=== PATIENT | male | born 1985 | race Caucasian/White ===

== ENCOUNTER 2018-07-03 17:55 | Emergency (ER) | payer OTHER, SELFPAY ==
[2018-07-03 17:56] VITALS: BP 157/87; PULSE 78; RESP 18; TEMP 36.6; O2SAT 99; BMI 29.8
--- NOTE | 2018-07-03 18:45 | ED.DCSUM_ITS ---
- ER Visit Summary Date of Service: 07/03/18 Chief Complaint: Back pain History of Present Illness: The patient is a 32 M who presents for acute onset of upper back pain and spasm. Patient states onset was 2 hours ago. He was working on his truck earlier today and then was in the backyard watching his kid s play when he began having sudden severe muscle spasming between his shoulder blades. He tried ibuprofen without relief. It is worse with movement and with deep breathing. He feels like the spasming is trying to twist him to the right. He denies chest pain, fever, shortness of breath, nausea vomiting, abdominal pain, numbness or weakness in the arms or legs. He did have brief left hand numbness but thinks it was the way he was sitting on the bed. It resolved after repositioning his arm. Patient has mild neck pain. No medical history. Is not on any medications. Physical Examination: Vital signs: afebrile, hemodynamically stable, no hypoxia on room air General: well nourished, well developed, in no distress, sitting in bed and appears mildly uncomfortable Skin: warm, dry, no rash, no pallor HEENT: normocephalic and atraumatic; PERRL, EOMI, moist mucous membranes Cardiovascular: regular rate and rhythm without murmurs, no peripheral edema, 2+ pulses all distal extremities Respiratory: No increased work of breathing, lungs are clear to auscultation bilaterally, no rales, rhonchi or wheezing Abdominal: Abdomen is soft, nontender with normoactive bowel sounds, no guarding or rebound, no masses Back: No cervical spine tenderness, midline deformities or step-offs. No midline tenderness deformities or step-offs in the thoracic or lumbar spine. Patient has palpable spasming of the left thoracic paraspinal musculature medial to the shoulder blade with tenderness to palpation. Sensation and motor function are intact all distal extremities. MSK: Moves all extremities, no deformities, normal strength Neuro: Awake and alert, oriented ?4. No facial droop, sensation and motor function intact and symmetric Test Results: [] Emergency Department Course and Treatment: Patient presents complaining of back spasm and pain between his shoulder blades, and his physical examination is most consistent with musculoskeletal spasming. He does have palpable muscle spasm of the left paraspinal musculature and tenderness to palpation. He has no findings on his physical exam or history that are concerning for an intrathoracic cause of his back pain, such as acute aortic dissection, pneumothorax or cardiac etiology. Patient was given IM injection of Toradol and Norflex. He will be given prescription for naproxen and Flexeril for use as needed at home. Return precautions given. Patient discharged home. Treatment Plan: [] Disposition: [] Impression: Thoracic muscle spasm This note was generated with [employer] dictation software. It may contain incorrect words, spelling, and punctuation that were not noted in review of the chart prior to signing ED Disposition - Plan for ED Patient: Disposition: Home or Assisted Living Instructions: ED Spasm Back No Trauma Prescriptions: Naproxen [Naprosyn] 500 mg PO BID PRN #20 tab Cyclobenzaprine HCl 5 mg PO TID PRN #20 tab PRN Reason: Muscle Spasm Referrals: Bandar Pemberton MD [Primary Care Provider] - 1 Week if not improving Additional Instructions: You may use the naproxen as needed for pain and the Flexeril as needed for muscle spasming. Do not take naproxen and ibuprofen at the same time. Please follow-up with your doctor if you continue to have issues with your back pain. If you have any worsening of your condition or any new concerning symptoms, please return immediately to the emergency department for another evaluation.
[2018-07-03] MEDS: Ketorolac 60 MG/2 ML Vial IM (18:47)
[2018-07-03] MEDS: Orphenadrine 60 MG/2 ML Ampul IM (18:49)
--- NOTE | 2018-07-03 19:30 | ED.RN ---
NO REACTIONS NOTED AT INJECTION SITE.
[2018-07-03 19:55] VITALS: BP 131/65; PULSE 68; RESP 18; O2SAT 97
== END 2018-07-03 20:00 | disposition home or self-care (01) ==
LOC: ED 18:58
PROVIDERS: Emergency Provider Emergency Medicine; Family Provider Family Medicine; PCP Family Medicine
DX: M62.830 Muscle spasm of back (principal); M54.2 Cervicalgia; R20.0 Anesthesia of skin
CPT/HCPCS: 96372; 99282

== ENCOUNTER → 2018-07-04 11:44 | Outpatient (CLI) | payer OTHER, SELFPAY ==
[2018-07-03 17:56] VITALS: BMI 29.8
--- NOTE | 2018-07-04 11:51 | RAD_ITS ---
STUDY: X-RAY CHEST REASON FOR EXAM: Male, 32 years old. Severe posterior chest pain with inspiration. Pain between shoulder blades. TECHNIQUE: PA and lateral views of the chest. COMPARISON: November 13, 2015. FINDINGS: The lungs are clear and expanded. There is no demonstrated pleural abnormality. Normal size heart. Normal mediastinum and gale. Normal visualized pulmonary arteries. Normal visualized aortic arch and descending thoracic aorta. Normal visualized thoracic spine. Normal visualized ribs, clavicles, and shoulders. There is no demonstrated abnormality of the visualized soft tissue structures of the upper abdomen. RAD/Chest PA and Lateral IMPRESSION: Stable examination. There is no radiographically evident acute cardiopulmonary disease. Electronically Signed: Edwar Doran MD at 16:06 EDT , Service support ,
== END ==
PROVIDERS: Family Provider Family Medicine; PCP Family Medicine; Referring Provider Family Medicine; Visit Provider Family Medicine
DX: R07.81 Pleurodynia (principal)
CPT/HCPCS: 71046

== ENCOUNTER 2018-10-15 08:31 | Emergency (ER) | payer OTHER, SELFPAY ==
[2018-10-15 08:32] VITALS: BP 157/96; PULSE 92; RESP 18; TEMP 36.6; O2SAT 99; BMI 30.1
--- NOTE | 2018-10-15 08:51 | CT_ITS ---
STUDY: CT ABDOMEN AND PELVIS WITH CONTRAST REASON FOR EXAM: Male, 32 years old. Pain central within the low abdomen. RADIATION DOSAGE (If Supplied By Facility): CTDIvol = ( 15.69 ) mGy, DLP = ( 1085.85 ) mGycm TECHNIQUE: Transaxial images were obtained from the dome of the diaphragm to the symphysis pubis without oral contrast. 100CC IV/Oral Isovue 300 was administered. Sagittal and coronal images were reconstructed. Individualized dose optimization techniques were used for this CT. COMPARISON: None. FINDINGS: The visualized lung bases are unremarkable. The visualized portions of the heart are within normal limits. Normal liver. The gallbladder is contracted. Normal spleen. Normal pancreas. Normal bilateral adrenal glands. Normal right kidney. Normal left kidney. Normal visualized stomach. Normal small intestine. There is diverticulosis, with thickening of the sigmoid colon wall, and pericolonic inflammation changes consistent with acute diverticulitis. There is non-visualization of the appendix. Normal abdominal aorta. Normal inferior vena cava. Normal retroperitoneum. Normal urinary bladder. Normal abdominal wall. Normal osseous structures. CT/Abdomen/Pelvis WITH Contrast IMPRESSION: Findings consistent with sigmoid diverticulitis with no evidence of adjacent abscess. Otherwise no evidence of additional acute process. Electronically Signed: Yair Slaughter DO at 10:51 EDT , Service support ,
--- NOTE | 2018-10-15 08:52 | ED.VIS.GEN ---
History of Present Illness Chief Complaint: Abd Pain Informant: Patient Onset: Yesterday Context: Gradual Onset Current Severity: Moderate Maximum Severity: Moderate Narrative: Patient presents with gradual onset of right lower abdominal pain since last evening. No fever has been noted. No urinary symptoms. He states he feels that he needs to go the bathroom to have a bowel movement but cannot. Past history is significant for chronic GI bleeding with bowel movements. Upper and lower endoscopy if not reveal definitive source. Patient states he was told to look as if he had had ulcers previously. - Past Medical History (1) Hx of vasectomy Status: Acute (2) Rectal bleeding Status: Acute (3) Ulcer Status: Acute Past Medical History - Allergies and Home Meds Allergies/Adverse Reactions: Allergies No Known Allergies Allergy (Verified 10/15/18 08:32) Primary Care Physician: Bandar Pemberton MD [Primary Care Provider] - Prior records reviewed: Yes Past Medical History: - - Reviewed Smoking Status: Never smoker Review of Systems General: Denies: Chills, Fever Eyes: Denies: Visual changes - bilaterally ENT: Denies: Bilateral ear pain, Sore throat Cardiovascular: Denies: Chest pain, Palpitations Respiratory: Denies: Dyspnea, Cough Gastrointestinal: Reports: Abdominal pain. Denies: Nausea, Vomiting, Diarrhea Genitourinary: Denies: Dysuria Musculoskeletal: Denies: Back pain Skin: Denies: Rash Endocrine: Denies: Polyuria, Polydipsia Hematologic: Denies: Easy bruising Allergy: Denies: Uticaria Physical Exam Vital Signs/Narrative: Vital Signs Temp Pulse Resp BP Pulse Ox 10/15/18 08:32 97.9 F 92 18 157/96 H 99 General: Well nourished, Well developed ENT: Moist mucous membranes Cardiovascular: Regular rate, Regular rhythm Respiratory: No distress, CTA bilaterally Abdomen: Soft, Tender - Tenderness palpation of the right lower quadrant with guarding. Tenderness is also elicited with palpation of the left lower quadrant., Guarding Extremities: Nontender, No edema Skin: Normal color, No rash Neurological: Alert, Oriented x3 Psychological: Normal affect Diagnostic/Tx/Re-eval Impressions Abdomen/Pelvis CT 10/15/18 08:51 IMPRESSION: Findings consistent with sigmoid diverticulitis with no evidence of adjacent abscess. Otherwise no evidence of additional acute process. Electronically Signed: Yair Slaughter DO at 10:51 EDT , Service support , 10/15/18 08:51 Abdomen/Pelvis WITH Contrast [CT] Stat Laboratory Results 10/15/18 10/15/18 10/15/18 08:45 08:45 09:08 WBC 13.5 H RBC 4.88 Hgb 15.2 Hct 43.4 MCV 88.9 MCH 31.1 MCHC 35.0 RDW Std Deviation 38.5 RDW Coeff of Emelia 11.9 Plt Count 251 MPV 9.7 Immature Gran % (Auto) 0.500 Neut % (Auto) 77.1 H Lymph % (Auto) 12.6 L [place] % (Auto) 8.6 Eos % (Auto) 0.9 Baso % (Auto) 0.3 Absolute Neuts (auto) 10.4 H Absolute Lymphs (auto) 1.70 Nucleated RBC % 0 Sodium 137 Potassium 3.7 Chloride 103 Carbon Dioxide 29.0 Anion Gap 5 BUN 19 H Creatinine 1.15 Estim Creat Clear Calc 99.13 Est GFR (MDRD) Af Amer 95 Est GFR (MDRD) Non-Af 78 BUN/Creatinine Ratio 16.5 Glucose 101 Calcium 8.8 Urine Color Yellow Urine Clarity Sl. Cloudy Urine pH 5.0 Ur Specific [place] 1.020 Urine Protein Negative Urine Glucose (UA) Normal Urine Ketones Negative Urine Occult Blood Negative Urine Nitrite Negative Urine Bilirubin Negative Urine Urobilinogen Normal Ur Leukocyte Esterase Negative Urine RBC 0 SEEN Urine WBC 0 SEEN Ur Squamous Epith Cells 0-5 SEEN Urine Bacteria 0 SEEN Urine Mucus 0 SEEN - Medical Decision Making Patient is given small dose of Toradol and Zofran for pain as he did not want anything narcotic. Test results were discussed with him at length at bedside. He will be treated with Cipro and Flagyl, first doses given here. He is given return instructions. ED Disposition - Plan for ED Patient: Disposition: Home or Assisted Living Diagnosis: Sigmoid diverticulitis Instructions: Diverticulitis Prescriptions: Ciprofloxacin [Cipro] 500 mg PO BID #14 tablet metroNIDAZOLE [Flagyl] 500 mg PO Q6H #40 tablet Referrals: Bandar Pemberton MD [Primary Care Provider] - 1 Week
[2018-10-15 09:04] LABS: Absolute Neutrophil Count 10.4 X10^3/uL (2.0-7.7); Basophil# 0.04 X10^3/uL; Basophil% 0.3 % (0-1); Eosinophil# 0.12 X10^3/uL; Eosinophils% 0.9 % (0-5); Hematocrit 43.4 % (40-54); Hemoglobin 15.2 g/dL (13.0-16.5); Lymphocyte % 12.6 % (19-41); Mean Corpuscular Hgb 31.1 pg (27.0-32.0); Mean Corpuscular Volume 88.9 fL (80-94); Mean Platelet Vol. 9.7 fl (6.2-12.0); Monocyte# 1.16 X10^3/uL; Monocyte% 8.6 % (0-10); NRBC Flagged by Analyzer 0 % (0-5); Neutrophil # 10.39 X10^3/uL (2.7-7.7); Neutrophil % 77.1 % (47-70); Platelet Count 251 K/mm3 (150-450); RBC Distribution Width CV 11.9 % (11.6-14.6); RBC Distribution Width SD 38.5 fl (35.1-43.9); Red Blood Count 4.88 M/mm3 (4.6-6.2); White Blood Count 13.5 K/mm3 (4.4-11.0)
[2018-10-15 09:12] LABS: Bacteria 0 SEEN /hpf (None Seen); Mucous, Urine 0 SEEN /hpf (<or=2+); Red Blood Cells-Urine 0 SEEN /hpf (0-5); White Blood Cells 0 SEEN /hpf (0-5)
[2018-10-15 09:14] LABS: Anion Gap 5 (5-15); BUN 19 mg/dL (7-18); BUN/Creat Ratio 16.5 RATIO (10-20); Calcium,Total 8.8 mg/dL (8.5-10.1); Chloride 103 mmol/L (98-107); Creatinine, Serum 1.15 mg/dL (0.70-1.30); EST Glomerular Filtration Rate 78 mL/min (>60); Est Glom Filt Rate - Afr Amer 95 mL/min (>60); Estimated Creatinine Clearance 99.13 ml/min; Glucose 101 mg/dL (74-106); Potassium 3.7 mmol/L (3.5-5.1); Sodium Level 137 mmol/L (136-145)
[2018-10-15 09:16] LABS: Color, Urine Yellow (Yellow); Glucose, Dipstick Normal (Normal); Ketone-Dipstick Negative (Negative); Leukocyte Esterase-Dipstick Negative /ul (Negative); Nitrite-Dipstick Negative (Negative); Occult Blood-Urine Negative /ul (Negative); Protein-Dipstick Negative (Negative); Urine Bilirubin Dipstick Negative (Negative); Urine Clarity Sl. Cloudy (Clear); Urine Urobilinogen Normal (Normal)
[2018-10-15 09:24] LABS: Squamous Epithelial Cells - UA 0-5 SEEN /hpf (0-5)
[2018-10-15] MEDS: 0.9% Normal Saline 1,000 ML 150 ML IV (10:13)
[2018-10-15] MEDS: Ondansetron 4 MG/2 ML Vial IV (10:49)
[2018-10-15] MEDS: Ketorolac 15 MG/ML Vial IV (10:49)
[2018-10-15 10:51] VITALS: BP 139/64; PULSE 62; RESP 16; O2SAT 98
[2018-10-15 11:46] VITALS: BP 103/86; PULSE 73; RESP 16; O2SAT 98
[2018-10-15] MEDS: Ciprofloxacin 500 MG Tablet PO (11:52)
[2018-10-15] MEDS: metroNIDAZOLE 500 MG Tablet PO (11:52)
== END 2018-10-15 11:52 | disposition home or self-care (01) ==
PROVIDERS: Emergency Provider Emergency Medicine; Family Provider Family Medicine; PCP Family Medicine
DX: K57.32 Diverticulitis of large intestine without perforation or abscess without bleeding (principal)
CPT/HCPCS: 74177; 80048; 81001; 85025; 96361; 96374; 96375; 99285; J7030; Q9967; A4216; J2405

== ENCOUNTER 2018-10-17 11:07 | Inpatient (IN) | payer OTHER, SELFPAY ==
[2018-10-17] VITALS (7 sets, daily range): BP systolic 112–152; BP diastolic 59–89; PULSE 49–62; RESP 16–18; TEMP 36.4–36.9; O2SAT 98–100; BMI 29.2; BMI 30.2
--- NOTE | 2018-10-17 11:37 | CT_ITS ---
STUDY: CT ABDOMEN AND PELVIS WITH CONTRAST REASON FOR EXAM: Male, 32 years old. History of sigmoid diverticulitis. RADIATION DOSAGE (If Supplied By Facility): CTDIvol = ( 15.46 ) mGy, DLP = ( 1109.18 ) mGycm TECHNIQUE: Transaxial images were obtained from the dome of the diaphragm to the symphysis pubis without oral contrast. 100 IV Isovue 300 was administered. Sagittal and coronal images were reconstructed. Individualized dose optimization techniques were used for this CT. COMPARISON: Comparison is made with prior study dated October 15, 2018. FINDINGS: Minimal degree of increased markings at the lung bases suggestive of atelectasis. The visualized portions of the heart are within normal limits. There is decreased attenuation of the liver consistent with steatosis. Normal gallbladder and extrahepatic biliary system. Normal spleen. Normal pancreas. Normal bilateral adrenal glands. Normal right kidney. Normal left kidney. There is a small hiatal hernia. Normal small intestine. There is diverticulosis, with thickening of the colon wall, and pericolonic inflammation changes consistent with acute diverticulitis. There is slight improvement in the inflammatory changes as compared to prior examination. Minimal free fluid in the pelvis. There is non-visualization of the appendix. Normal abdominal aorta. Normal inferior vena cava. There is borderline retroperitoneal lymphadenopathy with enlarged nodes no greater than 10mm in the short axis diameter. Normal urinary bladder. Normal abdominal wall. Normal osseous structures. CT/Abdomen/Pelvis W IV Cont ONLY IMPRESSION: Mild degree of improvement in the sigmoid diverticulitis. Electronically Signed: Davon Oconnor, at 12:30 EDT , Service support ,
[2018-10-17] MEDS: 0.9% Normal Saline 1,000 ML 1000 ML IV (11:53)
[2018-10-17] MEDS: Ketorolac 30 MG/ML Syringe IV (11:53)
[2018-10-17 11:55] LABS: Absolute Neutrophil Count 7.4 X10^3/uL (2.0-7.7); Basophil# 0.02 X10^3/uL; Basophil% 0.2 % (0-1); Eosinophil# 0.15 X10^3/uL; Eosinophils% 1.5 % (0-5); Hematocrit 39.6 % (40-54); Hemoglobin 13.8 g/dL (13.0-16.5); Lymphocyte % 12.2 % (19-41); Mean Corp Hgb Conc 34.8 g/dL (32-36); Mean Corpuscular Hgb 30.6 pg (27.0-32.0); Mean Corpuscular Volume 87.8 fL (80-94); Mean Platelet Vol. 9.9 fl (6.2-12.0); Monocyte# 1.02 X10^3/uL; Monocyte% 10.4 % (0-10); NRBC Flagged by Analyzer 0 % (0-5); Neutrophil # 7.38 X10^3/uL (2.7-7.7); Neutrophil % 75.3 % (47-70); Platelet Count 237 K/mm3 (150-450); RBC Distribution Width SD 38.5 fl (35.1-43.9); Red Blood Count 4.51 M/mm3 (4.6-6.2); White Blood Count 9.8 K/mm3 (4.4-11.0)
[2018-10-17 12:08] LABS: Anion Gap 4 (5-15); BUN 16 mg/dL (7-18); BUN/Creat Ratio 16.1 RATIO (10-20); Calcium,Total 8.7 mg/dL (8.5-10.1); Chloride 108 mmol/L (98-107); Creatinine, Serum 0.99 mg/dL (0.70-1.30); EST Glomerular Filtration Rate 93 mL/min (>60); Est Glom Filt Rate - Afr Amer 112 mL/min (>60); Estimated Creatinine Clearance 115.15 ml/min; Glucose 97 mg/dL (74-106); Potassium 3.9 mmol/L (3.5-5.1); Sodium Level 139 mmol/L (136-145)
--- NOTE | 2018-10-17 12:59 | ED.VISSUMM ---
- ER Visit Summary Date of Service: 10/17/18 Chief Complaint: Diverticulitis History of Present Illness: The patient is a 32 M who was seen in the emergency department on Wednesday for a pain in his lower abdomen that began on Wednesday evening. He was diagnosed with diverticulitis and that time had a white count of 13.5. He is placed on Cipro and Flagyl and discharged home. He followed up with primary care Dr. Ugarte this morning. He notes continued temperature of 101. Dr. Ugarte was concerned regarding his physical exam findings. He was referred to the emergency department for further evaluation. Patient last had ibuprofen this morning. Physical Examination: Afebrile vital signs are stable. Gen: Well-nourished well-developed Head: Normocephalic atraumatic Eyes: Perrl EOMI ENT: TMs clear no rhinorrhea moist mucous membranes Neck: Supple no lymphadenopathy no JVD nontender CVS: Regular rate rhythm no murmurs normal S1-S2 Respiratory: No distress clear to auscultation bilaterally chest nontender Abdomen: Soft tender to palpation in suprapubic left lower quadrant. There is guarding and mild rebound nondistended normal bowel sounds no masses Back: Nontender Extremity: Nontender no edema Skin: Normal color no rash Neuro: alert orientated ?3 CN II-XII intact normal strength sensation reflexes gait cerebellar Psych: Normal affect normal mood Test Results: White blood cell count is improved to 9.8. CT the abdomen pelvis demonstrate improved inflammatory changes. There is an area concerning for a small amount of air which would represent a microperforation. When I compare the CT to Wednesday to wonder if something in the same small amount of air then. If it is slightly larger today. Emergency Department Course and Treatment: IV fluids and Toradol. Results were discussed with the patient as well as with Dr. Bolden who had been contacted by Dr. Ugarte. Initially the patient declined admission but later requested admission. He received Cipro and Flagyl IV. Impression: 1. Acute diverticulitis with microperforation This note was generated with [employer] dictation software. It may contain incorrect words, spelling, and punctuation that were not noted in review of the chart prior to signing ED Disposition - Plan for ED Patient: Referrals: Bandar Pemberton MD [Primary Care Provider] -
[2018-10-17] MEDS: Ciprofloxacin 400 MG/200 ML BAG 200 MG IV ×2 (14:23→21:17)
--- NOTE | 2018-10-17 15:06 | PCM.HP.STD ---
Problem List (1) Acute diverticulitis Status: Acute History of Present Illness Date of Admission: 10/17/18 Chief Complaint: Lower abdominal pain The patient is a 32 year old M who presents with a 3 day history of lower abdominal pain. Patient stated the pain had started on Wednesday night. He noted Wednesday morning he had bloating and worsening pain. Patient proceeded to the [place] ED. CT scan of the ab/pel was completed which demonstrated acute diverticulitis. Patient was given oral antibiotics and was discharged to home. the pain became worse Wednesday night. He noted worsening pain last night with associated nausea and bloating. Patient notes he had sweats and chills at home however he did not take his temperature. He notes pain is dull today. He notes lack of appetite. He states pain is worse with positional movements. He has had a previous upper and lower scope by Dr. Peters for diarrhea in 2016. Colonoscopy was unremarkable. Patient was also evaluated by Dr. Peters for rectal bleeding from an anal fissure. Patient denies having these symptoms previously. Patient notes he started having diarrhea on Wednesday night. Patient notes he has not been on a liquid diet. Patient notes only surgery has been a vasectomy. Patient is not a smoker. Patient notes he has approximately [address] scan of the ab/pel demonstrates sigmoid diverticulitis with microperforation. Past Medical History Medical History: Medical History (Last Reviewed 10/17/18 @ 15:29 by Talia Gant PA-C) Ulcer (Acute) Blood in stool (Acute) K92.1 Constipation (Acute) K59.00 Epigastric pain (Acute) R10.13 Rectal bleeding (Acute) K62.5 Diarrhea (Acute) R19.7 Allergies No Known Allergies Allergy (Verified 10/17/18 11:07) Home Medications: Ambulatory Orders Medication Instructions Recorded Ciprofloxacin [Cipro] 500 mg PO BID #14 tab 10/15/18 metroNIDAZOLE [Flagyl] 500 mg PO Q6H #40 tab 10/15/18 Naproxen Sodium [Naproxen Sodium 500 mg PO DAILY PRN PRN 10/17/18 Cr] Surgical History: Surgical History (Last Reviewed 10/17/18 @ 15:29 by Talia Gant PA-C) Hx of colonoscopy (Acute) Z98.890 History of esophagogastroduodenoscopy (EGD) (Acute) Z98.890 Hx of vasectomy (Acute) Z98.52 Psychiatric History: No pertinent psych hx Lives: Spouse/ Significant Other Smoking Status: Never smoker - *Family History Maternal Family History: Family History (Last Reviewed 10/17/18 @ 15:29 by Talia Gant PA-C) Mother Hypertension Father Thyroid cancer History Items: No pertinent history Paternal Family History: Family History (Last Reviewed 10/17/18 @ 15:29 by Talia Gant PA-C) Mother Hypertension Father Thyroid cancer History Items: No pertinent history Review of Systems Constitutional: Reports: Anorexia, Chills, Fever, Fatigue HEENT: Denies: Head Aches, Sinus Congestion, Sinus Drainage Cardiovascular: Denies: Chest Pain, Palpitations Respiratory: Denies: Cough, Shortness of breath at rest, Sputum production Gastrointestinal: Reports: Abdominal Pain, Diarrhea, Nausea. Denies: Vomiting Genitourinary: Denies: Dysuria Musculoskeletal: Denies: Joint Pain, Joint Tenderness Skin: Denies: Rash, Wounds Neurological: Denies: Numbness, Tingling, Focal weakness Psychiatric: Denies: Anxiety, Depression, Homicidal Ideations, Suicidal Ideations Hematologic/ Lymphatic: Denies: Easy Bruising, Easy Bleeding VTE Information - Inpt Only VTE Present on Admission: No Patient Problems: Active and Suspected Problems (Last Updated 10/08/17 @ 15:37 by Fabi Santamaria) Acute diverticulitis (Acute) - Physical Exam General: Alert, Oriented x3, Cooperative HEENT: Atraumatic, PERRLA, EOMI, Normocephalic Neck: Supple, No JVD, Negative Carotid Bruits Lungs: Clear to auscultation, Normal air movement Cardiovascular: Regular rate, No murmurs Abdomen: Hypoactive Bowel Sounds, Distended - slightly, Tender - generalized moreso on the right lower abdomen Extremities: No edema, Capillary Refill Less than 3 Seconds Skin: No rashes, No breakdown Musculoskeletal: No Tenderness to Palpation of Joints or Extremities Neurological: Neuro grossly intact Psych/Mental Status: Normal Affect, Appropriate Vital Signs Temp Pulse Resp BP Pulse Ox 97.9 F 62 18 136/89 H 98 10/17/18 11:08 10/17/18 11:08 10/17/18 15:02 10/17/18 15:02 10/17/18 15:02 Oxygen Delivery Method Room Air Weight: 210 lb Body Mass Index (BMI) 29.2 Laboratory Tests Past 24 Hrs 10/17/18 10/17/18 11:40 11:40 WBC 9.8 RBC 4.51 L Hgb 13.8 Hct 39.6 L MCV 87.8 MCH 30.6 MCHC 34.8 RDW Std Deviation 38.5 RDW Coeff of Emelia 12.0 Plt Count 237 MPV 9.9 Immature Gran % (Auto) 0.400 Neut % (Auto) 75.3 H Lymph % (Auto) 12.2 L [place] % (Auto) 10.4 H Eos % (Auto) 1.5 Baso % (Auto) 0.2 Absolute Neuts (auto) 7.4 Absolute Lymphs (auto) 1.20 Nucleated RBC % 0 Sodium 139 Potassium 3.9 Chloride 108 H Carbon Dioxide 27.0 Anion Gap 4 L BUN 16 Creatinine 0.99 Estim Creat Clear Calc 115.15 Est GFR (MDRD) Af Amer 112 Est GFR (MDRD) Non-Af 93 BUN/Creatinine Ratio 16.1 Glucose 97 Calcium 8.7 Assessment/Plan All Active Problems (Last Updated 10/08/17 @ 15:37 by Fabi Santamaria) Acute diverticulitis (Acute) Hx of colonoscopy (Acute) History of esophagogastroduodenoscopy (EGD) (Acute) Hx of vasectomy (Acute) Ulcer (Acute) Blood in stool (Acute) Constipation (Acute) Epigastric pain (Acute) Rectal bleeding (Acute) Diarrhea (Acute) I am seeing this patient in conjunction with Dr. Bolden. Impression: Acute diverticulitis with microperforation Plan: Discussed patient with Dr. Bolden. We will plan to admit, IV fluids and IV antibiotics. Clear liquid diet. It was discussed with the patient that if his symptoms appear to be worsening, he may need surgical intervention. Patient was agreeable with the plan. He has had the opportunity to ask and have questions answered. Patient verbally understands and agrees with the plan. Thank you for allowing us to participate in this patient's care. Code Visit Office Visits / Consults: [id number] IP Consult L3
[2018-10-17] MEDS: Lactated Ringers 1,000 ML 125 ML IV (16:04)
[2018-10-17] MEDS: metroNIDAZOLE 500 MG/100 ML BAG 100 MG IV ×2 (17:26→22:35)
[2018-10-17] MEDS: 0.9% NaCl Peripheral Flush Adult/Peds IV (18:47)
[2018-10-17] MEDS: Ondansetron 4 MG/2 ML Vial IV (21:23)
[2018-10-17] MEDS: proMETHazine 25 MG/ML Syringe 12.5 MG IV (22:54)
[2018-10-18 03:00] VITALS: BP 112/54; PULSE 50; RESP 16; TEMP 36.2; O2SAT 99
[2018-10-18] MEDS: Lactated Ringers 1,000 ML 125 ML IV ×2 (03:12→13:50)
[2018-10-18] MEDS: metroNIDAZOLE 500 MG/100 ML BAG 100 MG IV ×3 (05:39→23:33)
[2018-10-18 05:53] LABS: Absolute Neutrophil Count 4.9 X10^3/uL (2.0-7.7); Basophil# 0.04 X10^3/uL; Basophil% 0.5 % (0-1); Eosinophil# 0.18 X10^3/uL; Eosinophils% 2.4 % (0-5); Hematocrit 37.3 % (40-54); Hemoglobin 12.7 g/dL (13.0-16.5); Lymphocyte % 22.5 % (19-41); Mean Corpuscular Hgb 30.3 pg (27.0-32.0); Mean Platelet Vol. 10.2 fl (6.2-12.0); Monocyte# 0.73 X10^3/uL; Monocyte% 9.6 % (0-10); NRBC Flagged by Analyzer 0 % (0-5); Neutrophil # 4.88 X10^3/uL (2.7-7.7); Neutrophil % 64.5 % (47-70); Platelet Count 247 K/mm3 (150-450); RBC Distribution Width SD 39.1 fl (35.1-43.9); Red Blood Count 4.19 M/mm3 (4.6-6.2); White Blood Count 7.6 K/mm3 (4.4-11.0)
[2018-10-18 07:00] VITALS: BP 107/72; PULSE 54; RESP 16; TEMP 36.3; O2SAT 100
--- NOTE | 2018-10-18 07:26 | PN.SURG_ITS ---
Patient Problems: Active and Suspected Problems (Last Reviewed 10/17/18 @ 15:29 by Talia Gant PA-C) Acute diverticulitis (Acute) Subjective: pt states pain is improved 0/10 with rest and 2/10 with palpation, +diarrhea, N/burning in epigastric improved with pepcid - Physical Exam General: Alert, Oriented x3, Cooperative, No apparent distress HEENT: Atraumatic Lungs: Normal air movement Cardiovascular: Regular rate Abdomen: Soft, Non-Distended, Tender - b/l lower quadrants, equivocal rebound, no guarding Extremities: No clubbing, No cyanosis, No edema Vital Signs Temp Pulse Resp BP Pulse Ox 97.2 F L 50 L 16 112/54 L 99 10/18/18 03:00 10/18/18 03:00 10/18/18 03:00 10/18/18 03:00 10/18/18 03:00 Oxygen Delivery Method Room Air Weight: 216 lb 0.848 oz Body Mass Index (BMI) 30.2 Intake and Output for Last 24 Hours 10/16/18 10/17/18 10/18/18 23:59 23:59 23:59 Intake Total 1050 / 2522 2225 / 2225 Balance 1050 / 2522 2225 / 2225 Laboratory Tests Past 24 Hrs 10/17/18 10/17/18 10/18/18 11:40 11:40 05:00 WBC 9.8 7.6 RBC 4.51 L 4.19 L Hgb 13.8 12.7 L Hct 39.6 L 37.3 L MCV 87.8 89.0 MCH 30.6 30.3 MCHC 34.8 34.0 RDW Std Deviation 38.5 39.1 RDW Coeff of [place]leia 12.0 12.0 Plt Count 237 247 MPV 9.9 10.2 Immature Gran % (Auto) 0.400 0.500 Neut % (Auto) 75.3 H 64.5 Lymph % (Auto) 12.2 L 22.5 [place] % (Auto) 10.4 H 9.6 Eos % (Auto) 1.5 2.4 Baso % (Auto) 0.2 0.5 Absolute Neuts (auto) 7.4 4.9 Absolute Lymphs (auto) 1.20 1.70 Nucleated RBC % 0 0 Sodium 139 Potassium 3.9 Chloride 108 H Carbon Dioxide 27.0 Anion Gap 4 L BUN 16 Creatinine 0.99 Estim Creat Clear Calc 115.15 Est GFR (MDRD) Af Amer 112 Est GFR (MDRD) Non-Af 93 BUN/Creatinine Ratio 16.1 Glucose 97 Calcium 8.7 Medical Necessity - Tobacco Use Smoking Status: Former smoker Tobacco Use: Cigarettes, Chew Assessment/Plan All Active Problems (Last Reviewed 10/17/18 @ 15:29 by Talia Gant PA-C) Acute diverticulitis (Acute) Hx of colonoscopy (Acute) History of esophagogastroduodenoscopy (EGD) (Acute) Hx of vasectomy (Acute) Ulcer (Acute) Blood in stool (Acute) Constipation (Acute) Epigastric pain (Acute) Rectal bleeding (Acute) Diarrhea (Acute) 32 y/o M with sigmoid diverticulitis 1. continue clears until pain resolved, pain is improved 2. continue cipro/flagyl IV, WBC wnl 3. ambulate pancho Bolden M.D. Pager: [phone] [facility] [address] [place] [address], [facility], [address] [place] [address] Office: [phone] Code Visit Inpatient E&M: 63671 Subs Hosp L1
[2018-10-18] MEDS: Ciprofloxacin 400 MG/200 ML BAG 200 MG IV ×2 (09:18→21:24)
[2018-10-18] MEDS: 0.9% NaCl Peripheral Flush Adult/Peds IV ×2 (09:18→21:15)
--- NOTE | 2018-10-18 13:58 | CASEMGMT ---
SHIRA HUDSON CHART REVIEW: Patient is 32yo male who was admitted for diverticulitis. Patient is a [employer] and is independent. Patient lives with . Patient has PCP and was seen by PCP on 10/17/18. No needs identified at this time. SHIRA HUDSON will continue to follow this patient and plan for a safe discharge.
[2018-10-18 14:30] VITALS: BP 108/61; PULSE 45; RESP 16; TEMP 36.5; O2SAT 100
[2018-10-18 21:24] VITALS: BP 120/75; PULSE 50; RESP 16; TEMP 36.8; O2SAT 98
[2018-10-19 05:09] VITALS: BP 124/98; PULSE 59; RESP 18; TEMP 36.5; O2SAT 97
[2018-10-19] MEDS: metroNIDAZOLE 500 MG/100 ML BAG 100 MG IV (05:14)
--- NOTE | 2018-10-19 08:16 | PN.SURG_ITS ---
Patient Problems: Active and Suspected Problems (Last Reviewed 10/17/18 @ 15:29 by Talia Gant PA-C) Acute diverticulitis (Acute) Subjective: Patient denies any abdominal pain, had some reddish tinged diarrhea however patient did have 6-7 Jell-O cups of the red Jell-O - Physical Exam General: Alert, Oriented x3, Cooperative, No apparent distress HEENT: Atraumatic Lungs: Normal air movement Cardiovascular: Regular rate Abdomen: Soft, Non Tender - No peritoneal signs, Non-Distended Extremities: No clubbing, No cyanosis, No edema Vital Signs Temp Pulse Resp BP Pulse Ox 97.7 F L 59 L 18 124/98 H 97 10/19/18 05:09 10/19/18 05:09 10/19/18 05:09 10/19/18 05:09 10/19/18 05:09 Oxygen Delivery Method Room Air Weight: 216 lb 0.848 oz Body Mass Index (BMI) 30.2 Intake and Output for Last 24 Hours 10/17/18 10/18/18 10/19/18 23:59 23:59 23:59 Intake Total 1050 / 2522 3901 / 3901 1535 / 1535 Balance 1050 / 2522 3901 / 3901 1535 / 1535 Medical Necessity - Tobacco Use Smoking Status: Former smoker Tobacco Use: Cigarettes, Chew Assessment/Plan All Active Problems (Last Reviewed 10/17/18 @ 15:29 by Talia Gant PA-C) Acute diverticulitis (Acute) Hx of colonoscopy (Acute) History of esophagogastroduodenoscopy (EGD) (Acute) Hx of vasectomy (Acute) Ulcer (Acute) Blood in stool (Acute) Constipation (Acute) Epigastric pain (Acute) Rectal bleeding (Acute) Diarrhea (Acute) 32 y/o M with sigmoid diverticulitis 1. Patient tolerated full's and has no pain this morning on exam. 2. Patient continue his previous prescription for Cipro Flagyl assuming it was for 14 days given on Wednesday 3. Will DC home today continue full liquids for today and then start a low fiber diet, patient will continue to monitor bowel movements let us know if there is any change. Patient was agreeable to plan. Virginie Bolden M.D. Pager: [phone] [facility] [address] [place] [address], [address] [place] [address] Office: [phone]
--- NOTE | 2018-10-19 08:18 | DCINST_ITS ---
Discharge Diet: - - Continue full liquids for today, okay to start a low fiber diet tomorrow and stay on for about 5 weeks. Discharge Activity: May Shower Call your doctor if your incision/area has: Increased Pain/ Swelling Call your doctor if you observe: Fever of 101 or Higher Additional Instructions: Okay to take metronidazole 500 mg p.o. every 8 hours not every 6 Allergies/Adverse Reactions: Allergies No Known Allergies Allergy (Verified 10/17/18 11:07) Medications to take at Discharge Ciprofloxacin [Cipro] 500 mg PO BID #14 tab 10/15/18 metroNIDAZOLE [Flagyl] 500 mg PO Q6H #40 tab 10/15/18 Naproxen Sodium [Naproxen Sodium Cr] 500 mg PO DAILY PRN PRN 10/17/18 Ciprofloxacin [Cipro] 500 mg PO BID #12 tab 10/19/18 The following prescriptions were given: Ciprofloxacin [Cipro] 500 mg PO BID #12 tab Transmission Status: Sent to [facility] Primary Care Physician: Bandar Pemberton MD [Primary Care Provider] - Test Results: Test results from this visit will be discussed in further detail at your follow- up appointment, if applicable. Please Follow Up With: Virginie Bolden MD - Kinj[place] to also see Dr. Peters, after 5 PM/on weekends, with any concerns When: Call the office for a follow-up appointment in 1 to 2 weeks. Proposed Discharge Date: 10/19/18
[2018-10-19 08:19] VITALS: BP 130/63; PULSE 58; RESP 18; TEMP 36.8; O2SAT 99
--- NOTE | 2018-10-19 08:40 | DS.PCM_ITS ---
Discharge Date and Diagnosis - Problem List Patient Problems: Active and Suspected Problems (Last Reviewed 10/17/18 @ 15:29 by Talia Gant PA-C) Acute diverticulitis (Acute) Date of Admission: 10/17/18 Date of Discharge: 10/19/18 - Primary Discharge Diagnosis Active and Suspected Problems (Last Reviewed 10/17/18 @ 15:29 by Talia Gant PA-C) Acute diverticulitis (Acute), microperforation Hospital Course and Treatment Operations: None Procedures: None Summary of Care Provided: The patient is a 32 year old M patient presented to the ER 10/17/2018 due to lower abdominal pain which has not improved since he was seen in the ER 10/15/2018. Patient was seen at his PCP office and had mild peritoneal signs and was en couraged to come to the ER for repeat CAT scan as he may need IV antibiotics and concern for microperforation. Patient had a CT abdomen pelvis which initial read said improvement of sigmoid diverticulitis however there was a questionable microperforation. Patient's white blood count was normal as he was on Cipro Flagyl prior to coming in. Patient did have mild rebound no guarding. Patient was admitted and kept on clears until pain improved along with Cipro and Flagyl IV antibiotics. Over the 2 days pain did improve he was able to tolerate full liquid diet. And by patient had no pain on palpation. He was DC'd with full diet for today and then okay for a low fiber diet for about the next 5 weeks. Patient was also given a prescription for another 11 days of Cipro Flagyl. Patient Problems: Active and Suspected Problems (Last Reviewed 10/17/18 @ 15:29 by Talia Gant PA-C) Acute diverticulitis (Acute) - Physical Exam General: Alert, Oriented x3, Cooperative, No apparent distress HEENT: Atraumatic Lungs: Normal air movement Cardiovascular: Regular rate Abdomen: Soft, Non Tender, Non-Distended Extremities: No clubbing, No cyanosis, No edema Vital Signs Temp Pulse Resp BP Pulse Ox 97.7 F L 59 L 18 124/98 H 97 10/19/18 05:09 10/19/18 05:09 10/19/18 05:09 10/19/18 05:09 10/19/18 05:09 Oxygen Delivery Method Room Air Weight: 216 lb 0.848 oz Body Mass Index (BMI) 30.2 Intake and Output for Last 24 Hours 10/17/18 10/18/18 10/19/18 23:59 23:59 23:59 Intake Total 1050 / 2522 3901 / 3901 1535 / 1535 Balance 1050 / 2522 3901 / 3901 1535 / 1535 Discharge Diet: - - Continue full liquids for today, okay to start a low fiber diet tomorrow and stay on for about 5 weeks. Discharge Activity: May Shower Call your doctor if your incision/area has: Increased Pain/ Swelling Call your doctor if you observe: Fever of 101 or Higher Home Medications: Medications to take at Discharge Ciprofloxacin [Cipro] 500 mg PO BID #14 tab 10/15/18 metroNIDAZOLE [Flagyl] 500 mg PO Q6H #40 tab 10/15/18 Naproxen Sodium [Naproxen Sodium Cr] 500 mg PO DAILY PRN PRN 10/17/18 Ciprofloxacin [Cipro] 500 mg PO BID #12 tab 10/19/18 Following Prescrptions Were Given to Patient: Ciprofloxacin [Cipro] 500 mg PO BID #12 tab Transmission Status: Received by [facility] Primary Care Physician: Bandar Pemberton MD [Primary Care Provider] - Please Follow Up With: Virginie Bolden MD - Kinjal to also see Dr. Peters, after 5 PM/on weekends, with any concerns When: Call the office for a follow-up appointment in 1 to 2 weeks. Additional Instructions: Okay to take metronidazole 500 mg p.o. every 8 hours not every 6 Disposition: Home Minutes spent on discharge:: 15 Patient Condition:: Good Medical Necessity - Tobacco Use Smoking Status: Former smoker Tobacco Use: Cigarettes, Chew Meaningful Use Info Meaningful Use Diagnoses (Choose all that apply): None applicable Code Visit Inpatient E&M: 79612 Disch Hosp
== END 2018-10-19 09:25 | disposition home or self-care (01) | DRG 392 ==
LOC: ED 11:52 → MS3 14:26
PROVIDERS: Admitting Provider Surgery; Emergency Provider Emergency Medicine; Family Provider Family Medicine; PCP Family Medicine; Referring Provider Surgery; Visit Provider Surgery
DX: K57.20 Diverticulitis of large intestine with perforation and abscess without bleeding (principal); K59.00 Constipation, unspecified; Z87.891 Personal history of nicotine dependence
CPT/HCPCS: 36415; 74177; 80048; 85025; 99283; J7030; J7120; Q9967; A4216; J0744; J2405; J3490

== ENCOUNTER → 2019-06-02 14:10 | Outpatient (CLI) | payer OTHER, SELFPAY ==
[2018-10-17 15:12] VITALS: BMI 30.2
[2019-06-02 15:55] LABS: Anion Gap 3 (5-15); BUN 19 mg/dL (7-18); BUN/Creat Ratio 17.3 RATIO (10-20); Calcium,Total 8.9 mg/dL (8.5-10.1); Chloride 103 mmol/L (98-107); EST Glomerular Filtration Rate 82 mL/min (>60); Est Glom Filt Rate - Afr Amer 100 mL/min (>60); Glucose 98 mg/dL (74-106); Potassium 3.8 mmol/L (3.5-5.1); Sodium Level 138 mmol/L (136-145)
== END ==
PROVIDERS: PCP Family Medicine; Visit Provider Family Medicine
DX: I10 Essential (primary) hypertension (principal)
CPT/HCPCS: 36415; 80048

== ENCOUNTER → 2020-01-23 08:13 | Outpatient (CLI) | payer OTHER, SELFPAY ==
[2018-10-17 15:12] VITALS: BMI 30.2
[2020-01-23 12:31] LABS: Absolute Lymphocyte Count 1.89 X10^3/uL (0.83-4.51); Absolute Neutrophil Count 5.6 X10^3/uL (2.0-7.7); Basophil# 0.06 X10^3/uL; Basophil% 0.7 % (0-1); Eosinophil# 0.17 X10^3/uL; Hematocrit 45.9 % (40-54); Hemoglobin 15.5 g/dL (13.0-16.5); Lymphocyte # 1.89 X10^3/ul (4.0); Lymphocyte % 21.9 % (19-41); Mean Corp Hgb Conc 33.8 g/dL (32-36); Mean Corpuscular Hgb 30.9 pg (27.0-32.0); Mean Corpuscular Volume 91.6 fL (80-94); Mean Platelet Vol. 10.4 fl (6.2-12.0); Monocyte# 0.84 X10^3/uL; Monocyte% 9.7 % (0-10); NRBC Flagged by Analyzer 0 % (0-5); Neutrophil # 5.63 X10^3/uL (2.7-7.7); Neutrophil % 65.2 % (47-70); Platelet Count 308 K/mm3 (150-450); RBC Distribution Width CV 12.2 % (11.6-14.6); RBC Distribution Width SD 40.4 fl (35.1-43.9); Red Blood Count 5.01 M/mm3 (4.6-6.2); White Blood Count 8.6 K/mm3 (4.4-11.0)
[2020-01-23 13:30] LABS: Anion Gap 5 (5-15); BUN 19 mg/dL (7-18); BUN/Creat Ratio 15.3 RATIO (10-20); Calcium,Total 9.4 mg/dL (8.5-10.1); Chloride 104 mmol/L (98-107); Cholesterol 192 mg/dL (200); Creatinine, Serum 1.24 mg/dL (0.70-1.30); EST Glomerular Filtration Rate 71 mL/min (>60); Est Glom Filt Rate - Afr Amer 86 mL/min (>60); Glucose 93 mg/dL (74-106); High Density Lipoprotein 56 mg/dL; Potassium 4.1 mmol/L (3.5-5.1); Sodium Level 136 mmol/L (136-145); Thyroid Stim Hormone (TSH) 2.22 uIU/mL (0.358-3.74); Triglycerides 196 mg/dL; Very Low Density Lipoprotein 39 mg/dL (5-40)
== END ==
PROVIDERS: PCP Family Medicine; Visit Provider Family Medicine
DX: I10 Essential (primary) hypertension (principal)
CPT/HCPCS: 36415; 80048; 80061; 84443; 85025

== ENCOUNTER → 2021-09-08 | Outpatient (CLI) | payer OTHER, SELFPAY ==
[2021-09-08 07:55] LABS: Cholesterol 187 mg/dL (200); Glucose 108 mg/dL (74-106); High Density Lipoprotein 34 mg/dL; Triglycerides 426 mg/dL
== END | disposition home or self-care (01) ==
LOC: LAB 06:32
PROVIDERS: PCP Family Medicine; Referring Provider Family Medicine; Visit Provider Family Medicine
DX: Z13.220 Encounter for screening for lipoid disorders (principal); Z13.1 Encounter for screening for diabetes mellitus
CPT/HCPCS: 36415; 80061; 82947

== ENCOUNTER 2024-08-03 09:15 | Day surgery (SDC) | payer MEDICAID, SELFPAY ==
[2024-08-03] VITALS (16 sets, daily range): BP systolic 101–139; BP diastolic 59–94; PULSE 66–93; RESP 16–18; TEMP 36.4–36.9; O2SAT 92–98; BMI 32.6
--- NOTE | 2024-08-03 09:28 | CT_ITS ---
PROCEDURE: ABDOMEN/PELVIS W IV CONT ONLY 08/03/2024 REASON FOR EXAM: PAIN TECHNIQUE: Abdomen and pelvis CT with intravenous contrast. Coronal and Sagittal reconstruction series were provided. PATIENT PREPARATION: Per protocol ORAL CONTRAST TYPE: None. CONTRAST: 92 cc Isovue 300 One or more dose reduction techniques were used (e.g., Automated exposure control, adjustment of the mA and/or kV according to patient size, use of iterative reconstruction technique. RADIATION DOSE SUMMARY: DLP: 1117.96 mGycm COMPARISON: None FINDINGS: Lung bases: Clear Liver: Unremarkable Gallbladder: Unremarkable Spleen: Unremarkable Pancreas: Unremarkable Adrenals: Unremarkable Kidneys: There is a 1.4 cm simple cyst in the left kidney, midpole. There is no renal stone or hydronephrosis. There is excretion by the right and left kidney demonstrated in the ureters. Bladder: Unremarkable Reproductive Organs: Unremarkable Bowel: There is a minimal stool load. The small-bowel loops are not distended. There is scattered diverticuli in the distal descending and sigmoid colon with no visible acute diverticulitis. Appendix: The appendix is dilated to 1.3 cm, with mild periappendiceal inflammation, image [id number]. Lymph nodes: There is no pathologic adenopathy by size criteria. Vasculature: Unremarkable Peritoneum / Retroperitoneum: There is no free air or free fluid Bones: Is no acute bony abnormality. CT/Abdomen/Pelvis W IV Cont ONLY IMPRESSION: The appendix is dilated to 1.3 cm, with mild periappendiceal inflammation, imag e [id number]. findings are consistent with acute appendicitis. Critical results were discussed with Dr. Kwok by Dr. Danielle at the time of dictation. Reading Location: [facility]
--- NOTE | 2024-08-03 09:28 | ED.VIS.GI ---
HPI HPI - GI History of Present Illness Chief Complaint: Abd Pain Narrative Narrative: 38-year-old male past medical previous diverticulitis presents with abdominal pain that began around 10 PM yesterday evening, approximately 11 and half hours ago. He relates history that he has had diverticulitis flareups in the past, the last documented being in 2020, but occasionally he will get flares for which his primary used to have antibiotics prescribed to him. He states that he is feeling like he is having another flare with suprapubic to left lower quadrant pain. It is associated with nausea and vomiting but no fevers or chills. He denies any other exacerbating or alleviating factors. He had a normal bowel movement yesterday. He states that the pain was so severe that he went to an outside facility earlier this morning at 4 AM. He states that they found no evidence of diverticulitis, and that they prescribed him dicyclomine, and he went to go home and lay down but felt that his pain was getting worse. Frankly, he states that he would like a second opinion and is concerned because of the worsening abdominal pain that feels very similar to his previous diverticulitis. PFSH PFSH Medical History Ulcer Blood in stool Constipation Epigastric pain Rectal bleeding Diarrhea Home Medications ?Medication ?Instructions ?Recorded ?Last Taken ?Type ciprofloxacin HCl 500 mg tablet 500 mg PO BID #14 tabs 10/15/18 10/17/18 Rx metronidazole 500 mg tablet 500 mg PO Q6H #40 tabs 10/15/18 10/17/18 Rx naproxen sodium 500 mg 500 mg PO DAILY PRN PRN Pain 10/17/18 10/17/18 History tablet,extended release 24 hr mphase ciprofloxacin HCl 500 mg tablet 500 mg PO BID #12 tabs 10/19/18 Unknown Rx Allergy/AdvReac Type Severity Reaction Status Date / Time ciprofloxacin AdvReac Severe Nausea Verified 08/03/24 09:19 Family History Mother Hypertension Father Thyroid cancer Surgical History Hx of colonoscopy History of esophagogastroduodenoscopy (EGD) Hx of vasectomy Social History Smoking Status: Former smoker alcohol intake: current alcohol intake frequency: a few times a week Alcohol type: beer substance use type: does not use caffeine: Yes what type of physical activity do you participate in: walking, running and weight training frequency: daily seatbelt use: always ROS ROS ED ROS Narrative Review of systems positive for suprapubic to bilateral lower quadrant pain, left greater than right. Positive nausea and vomiting. No fevers or chills. No dysuria or hematuria. Normal bowel movement yesterday. No diarrhea. EXAM Physical Exam Narrative Exam Narrative: Afebrile. Vital signs noted. Nontoxic-appearing. Cardiovascular examination reveals a regular rate and rhythm. Lungs are clear to auscultation bilaterally. Abdominal examination reveals mild tenderness palpation in the left lower quadrant to suprapubic area. Positive bowel sounds. Questionable rebound tenderness. Const Vital Signs: 08/03/24 09:16 08/03/24 11:04 08/03/24 11:15 Temperature 98.4 F 98.5 F 98.5 F Temperature Source Oral Oral Pulse Rate 77 77 74 Respiratory Rate 16 16 18 Blood Pressure 139/94 H 130/85 H 130/85 H Blood Pressure Mean 109 100 100 Blood Pressure Source Monitor Blood Pressure Position Semi-Fowlers Blood Pressure Location Right Arm Pulse Ox 98 98 98 Oxygen Delivery Method Room Air Room Air 08/03/24 12:11 Temperature 98.5 F Temperature Source Pulse Rate 74 Respiratory Rate 18 Blood Pressure 130/85 H Blood Pressure Mean Blood Pressure Source Blood Pressure Position Blood Pressure Location Pulse Ox 98 Oxygen Delivery Method MDM MDM MDM Narrative Medical decision making narrative: The differential diagnosis includes but not limited to diverticulitis versus viscus perforation versus ureterolithiasis versus nonspecific abdominal pain. Given the patient's complaint of worsening pain, and tenderness, I discussed with him repeat laboratory work and imaging. As the patient drove here, I am unable to give him narcotic pain medications and he is agreeable to this as he states he is not concerned about receiving pain medication currently. I reviewed his laboratory work and he has a leukocytosis of 15.0 with hemoglobin normal at 15.8, hematocrit 44.6, platelet count 284, AST is elevated at 70 with ALT 119 which I think is nonspecific, alk phos normal at 48, lipase normal at 43. Urinalysis obtained and reviewed and is negative for infection. At approximately 10:40 AM I received a call from the radiologist regarding the CT results. Patient has a dilated appendix to 13 mm without perforation or abscess. There is periappendiceal inflammation noted. It is consistent with an acute appendicitis. Serial examinations show his abdomen to remain soft, but tender more in the right lower quadrant to midline. Patient will be started on Zosyn and surgery contacted. He was also administered morphine and ondansetron. Repeat examination shows his abdomen to remain soft, but he has more diffuse lower quadrant tenderness. He was able to ambulate to the bathroom without difficulty. Patient will be discussed with Dr. Bolden for admission. After discussion, patient will be admitted to the OR. Patient is in stable condition. History & Record Review Discussion w/independent historian: Patient Lab Data Attestation: I reviewed the patient's lab results. Labs: Laboratory Results - last 24 hr 08/03/24 08/03/24 09:34 09:40 WBC 15.0 H RBC 5.10 Hgb 15.8 Hct 44.6 MCV 87.5 MCH 31.0 MCHC 35.4 RDW Std Deviation 38.5 RDW Coeff of [place] 12.0 Plt Count 284 MPV 10.0 Immature Gran % (Auto) 0.500 Neut % (Auto) 89.0 H Lymph % (Auto) 5.5 L [place] % (Auto) 4.2 Eos % (Auto) 0.5 Baso % (Auto) 0.3 Absolute Neuts (auto) 13.4 H Absolute Lymphs (auto) 0.83 Nucleated RBC % 0 Sodium 135 Potassium 4.1 Chloride 98 Carbon Dioxide 25.6 Anion Gap 11 BUN 13 Creatinine 1.00 Estim Creat Clear Calc 125.39 Est GFR (MDRD) Non-Af 99 BUN/Creatinine Ratio 12.8 Glucose 178 H Calcium 9.7 Total Bilirubin 0.53 AST 70 H ALT 119 H Alkaline Phosphatase 48 Total Protein 8.2 Albumin 4.9 Globulin 3.3 Albumin/Globulin Ratio 1.5 Lipase 43 Urine Color Yellow Urine Clarity Clear Urine pH 6.0 Ur Specific [place] 1.020 Urine Protein 15 H Urine Glucose (UA) Normal Urine Ketones Negative Urine Occult Blood Negative Urine Nitrite Negative Urine Bilirubin Negative Urine Urobilinogen Normal Ur Leukocyte Esterase Negative Urine RBC 0 SEEN Urine WBC 0 SEEN Ur Squamous Epith Cells 0 SEEN Urine Bacteria 0 SEEN Urine Mucus 0 SEEN Radiography Diagnostic Testing: Clinical Impression(s) from Imaging Studies Abdomen/Pelvis CT 08/03/24 09:28 IMPRESSION: The appendix is dilated to 1.3 cm, with mild periappendiceal inflammation, image [id number]. findings are consistent with acute appendicitis. Critical results were discussed with Dr. Kwok by Dr. Danielle at the time of dictation. Reading Location[facility] Management Discussion w/another healthcare provider: Insurance Loss Adjuster (Dr. Bolden) Discharge Plan Dx/Rx/DC Orders Clinical Impression: Acute appendicitis, Abdominal pain Disposition Disposition: Acute Care Hospital [facility] Discharge Date/Time: 08/03/24 11:35
[2024-08-03] MEDS: 0.9% Normal Saline (1000mL) 1,000 ML 999 ML IV (09:41)
[2024-08-03 09:57] LABS: Bacteria 0 SEEN /hpf (None Seen); Mucous, Urine 0 SEEN /hpf (<or=2+); Red Blood Cells-Urine 0 SEEN /hpf (0-5); Squamous Epithelial Cells - UA 0 SEEN /hpf (0-5); White Blood Cells 0 SEEN /hpf (0-5)
[2024-08-03 09:59] LABS: Absolute Lymphocyte Count 0.83 X10^3/uL (0.83-4.51); Absolute Neutrophil Count 13.4 X10^3/uL (2.0-7.7); Basophil# 0.04 X10^3/uL; Basophil% 0.3 % (0-1); Eosinophil# 0.08 X10^3/uL; Eosinophils% 0.5 % (0-5); Hematocrit 44.6 % (40-54); Hemoglobin 15.8 g/dL (13.0-16.5); Lymphocyte # 0.83 X10^3/ul (0.83-4.51); Lymphocyte % 5.5 % (19-41); Mean Corp Hgb Conc 35.4 g/dL (32-36); Mean Corpuscular Volume 87.5 fL (80-94); Monocyte# 0.63 X10^3/uL; Monocyte% 4.2 % (0-10); NRBC Flagged by Analyzer 0 % (0-5); Neutrophil # 13.38 X10^3/uL (2.7-7.7); Platelet Count 284 K/mm3 (150-450); RBC Distribution Width SD 38.5 fl (35.1-43.9)
[2024-08-03 10:02] LABS: Color, Urine Yellow (Yellow); Glucose, Dipstick Normal (Normal); Ketone-Dipstick Negative (Negative); Leukocyte Esterase-Dipstick Negative /ul (Negative); Nitrite-Dipstick Negative (Negative); Occult Blood-Urine Negative /ul (Negative); Protein-Dipstick 15 mg/dl (Negative); Urine Bilirubin Dipstick Negative (Negative); Urine Clarity Clear (Clear); Urine Urobilinogen Normal (Normal)
[2024-08-03 10:17] LABS: ALB/GLOB Ratio 1.5 RATIO (0.9-2.4); AST(SGOT) 70 U/L (<=37); Alanine Aminotransfer ALT/SGPT 119 U/L (<=46); Albumin, Serum 4.9 g/dL (3.5-5.0); Alkaline Phosphatase 48 U/L (40-129); Anion Gap 11 (5-15); BUN 13 mg/dL (4-19); BUN/Creat Ratio 12.8 RATIO (10-20); Calcium,Total 9.7 mg/dL (7.6-11.0); Carbon Dioxide 25.6 mmol/L (21.0-32.0); Chloride 98 mmol/L (98-108); EST Glomerular Filtration Rate 99 (>60); Estimated Creatinine Clearance 125.39 ml/min (50-250); Globulin 3.3 g/dL (2.2-4.2); Glucose 178 mg/dL (70-99); Lipase 43 U/L (13-75); Potassium 4.1 mmol/L (3.3-5.1); Protein, Total 8.2 g/dL (5.9-8.4); Sodium Level 135 mmol/L (133-145); Total Bilirubin 0.53 mg/dL (0.00-1.30)
[2024-08-03] MEDS: Morphine 4 MG/ML Syringe IV (10:52)
[2024-08-03] MEDS: Ondansetron 4 MG/2 ML Vial IM (10:52)
[2024-08-03] MEDS: Piperacil/Tazobactam 3.375 GM in 0.9% Normal Saline (50mL MB+) 50 ML IV (10:53)
--- NOTE | 2024-08-03 10:58 | HP.PCM.SX_ITS ---
HPI - General General Date of Service: 08/03/24 HPI Narrative RAVEN MCCULLOUGH, is a 38 M who presents ER due to lower abdominal pain left and right. Patient initially went to [place] ER this morning due to pain at midnight. Patient was sent home even after CT abdomen pelvis was completed do not have the report or images. Patient's pain continued to get worse did come to our ER had a white blood count 15, will CT abdomen pelvis showed acute appendicitis. Patient was given IV Zosyn in the ER for acute appendicitis. [facility] Medical History Ulcer Blood in stool Constipation Epigastric pain Rectal bleeding Diarrhea Home Medications ?Medication ?Instructions ?Recorded ?Last Taken ?Type ciprofloxacin HCl 500 mg tablet 500 mg PO BID #14 tabs 10/15/18 10/17/18 Rx metronidazole 500 mg tablet 500 mg PO Q6H #40 tabs 05/3110/17/18 Rx naproxen sodium 500 mg 500 mg PO DAILY PRN PRN Pain 10/17/18 10/17/18 History tablet,extended release 24 hr mphase ciprofloxacin HCl 500 mg tablet 500 mg PO BID #12 tabs 10/19/18 Unknown Rx Allergy/AdvReac Type Severity Reaction Status Date / Time ciprofloxacin AdvReac Severe Nausea Verified 08/03/24 09:19 Family History Mother Hypertension Father Thyroid cancer Surgical History Hx of colonoscopy History of esophagogastroduodenoscopy (EGD) Hx of vasectomy Social History Smoking Status: Former smoker alcohol intake: current alcohol intake frequency: a few times a week Alcohol type: beer substance use type: does not use caffeine: Yes what type of physical activity do you participate in: walking, running and weight training frequency: daily seatbelt use: always Vital Signs Vital Signs Vital Signs: 08/03/24 09:16 Temperature 98.4 F Temperature Source Oral Pulse Rate 77 Respiratory Rate 16 Blood Pressure 139/94 H Blood Pressure Mean 109 Pulse Ox 98 Oxygen Delivery Method Room Air Weight Weight: 234 lb 1.6 oz Body Mass Index (BMI) 32.6 Physical Exam Const alert, oriented x3 and no apparent distress HEENT normocephalic and head/scalp atraumatic Resp normal respiratory effort Cardio regular rate GI soft to palpation; Negative for non-distended Palpation: tender LLQ and RLQ; Negative for guarding Extremity no clubbing, cyanosis or edema Neuro CN's II-XII intact bilaterally Psych mental status grossly normal Results Lab / Micro Data 08/03/24 09:34 08/03/24 09:34 Labs: Laboratory Results - last 24 hr 08/03/24 09:34: WBC 15.0 H, RBC 5.10, Hgb 15.8, Hct 44.6, MCV 87.5, MCH 31.0, MCHC 35.4, RDW Std Deviation 38.5, RDW Coeff of [place] 12.0, Plt Count 284, MPV 10.0, Immature Gran % (Auto) 0.500, Neut % (Auto) 89.0 H, Lymph % (Auto) 5.5 L, [place] % (Auto) 4.2, Eos % (Auto) 0.5, Baso % (Auto) 0.3, Absolute Neuts (auto) 13.4 H, Absolute Lymphs (auto) 0.83, Nucleated RBC % 0, Sodium 135, Potassium 4.1, Chloride 98, Carbon Dioxide 25.6, Anion Gap 11, BUN 13, Creatinine 1.00, Estim Creat Clear Calc 125.39, Est GFR (MDRD) Non-Af 99, BUN/Creatinine Ratio 12.8, Glucose 178 H, Calcium 9.7, Total Bilirubin 0.53, AST 70 H, ALT 119 H, Alkaline Phosphatase 48, Total Protein 8.2, Albumin 4.9, Globulin 3.3, Albumin/Globulin Ratio 1.5, Lipase 43 08/03/24 09:40: Urine Color Yellow, Urine Clarity Clear, Urine pH 6.0, Ur Specific [place] 1.020, Urine Protein 15 H, Urine Glucose (UA) Normal, Urine Ketones Negative, Urine Occult Blood Negative, Urine Nitrite Negative, Urine Bilirubin Negative, Urine Urobilinogen Normal, Ur Leukocyte Esterase Negative, Urine RBC 0 SEEN, Urine WBC 0 SEEN, Ur Squamous Epith Cells 0 SEEN, Urine Bacteria 0 SEEN, Urine Mucus 0 SEEN Imaging Radiology Impression Abdomen/Pelvis CT 08/03/24 09:28 IMPRESSION: The appendix is dilated to 1.3 cm, with mild periappendiceal inflammation, image [id number]. findings are consistent with acute appendicitis. Critical results were discussed with Dr. Kwok by Dr. Danielle at the time of dictation. Reading Location: [facility] Assessment & Plan Assessment/Plan (1) Acute appendicitis: PLAN: Plan Did review CT abdomen pelvis. Agree with acute appendicitis 1. Discussed procedure laparoscopic appendectomy, possible open along with the risk but not limited to bleeding, infection/abscess, injury to another organ (small bowel, colon, etc.), adhesion, hernia at incision sites, and anesthesia. Patient no further questions. Virginie Bolden M.D. Pager: [phone] [facility] [address] [place] [address], [address] [place] [id number] Office: [phone]
--- NOTE | 2024-08-03 11:30 | APP_PTH ---
PATIENT: RAVEN MCCULLOUGH [place] [facility] [id number] AGE/SX: 38/M ROOM: RE08/03/[address]: Dr. Virginie Bolden MD : [id number] BED: DIS: 08/03/2024 SPEC #: [id number] RECD: 08/03/24 15:21 STATUS: [place] REQ #: [id number] ES: 08/03/24 11:[address]: Virginie Bolden DEPT: SURGICAL PATHOLOGY RECD BY: Mio Michelle ENTERED: 08/03/24 15:52 SP TYPE: APPENDIX SHANT DR: No Primary Care Phys Tissues: A - Appendix, NOS Procedures: Surgery Specimen Level III HEADER OPERATION: 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 appendectomy PRE-OP DIAGNOSIS: Acute appendicitis TISSUE SUBMITTED: A- Appendix MICROSCOPIC DIAGNOSIS A. Appendix, appendectomy: * Acute appendicitis, acute serositis. MICROSCOPIC DESCRIPTION Slides are reviewed. GROSS DESCRIPTION A. Received in formalin in a container labeled with the patient's name, date of , and appendix is a shaggy and disrupted 8.4 cm in length by 0.8 cm in diameter appendectomy specimen with mesoappendix measuring up to 1.0 cm wide. The serosa is ruiz-pink with a 1.5 x 0.6 cm serosal defect (inked green) situated 3.3 cm from the stapled resection margin (inked black). There is a moderate amount of white-ruiz exudate. Serial sections reveal that the defect exhibits a thin wall but does not grossly appear to be transmural. No perforations or fecaliths are identified. The lumen ranges from 0.2 to 0.3 cm filed with red, thick fluid. There is an average wall thickness of 0.3 cm. Scale Assembly Set Up Worker sections:A1. Cross-sections including margin en face and defectA2. Tip, bisected [facility] 08-03-2024 CPT:40590
[2024-08-03] MEDS: 0.9% Normal Saline (1000mL) 1,000 ML 15 ML IV (11:45)
[2024-08-03] MEDS: Bupiv/Epi 0.25% 30 ML Vial (11:58)
--- NOTE | 2024-08-03 12:10 | PCM.PRE.AN2 ---
ASA Classification* ASA Classification ASA Classification: 2 and E Assessment & Plan Anesthesia* Anesthesia Assessment Anesthesia Assessment: Discussed sedation and/or anesthesia options, risks, benefits, and alternatives with patient/parents/legal guardian/POA. Questions invited. The patient/parents/legal guardian/POA seems to understand and agrees to proceed with anesthesia plan. Reviewed the physical assessment, medical history, allergy history and patient home medications list prior to surgery/procedure/anesthetic and documented any changes. Performed airway and anesthesia risk assessments. Anesthesia Type Anesthesia Type: General Anesthesia Focused Assessment* Temperature: 98.5 F Pulse Rate: 74 Blood Pressure: 130/85 Respiratory Rate: 18 Pulse Ox: 98 Airway Assessment Mouth opens: >3 cm Mallampati Score: II Focused Labs Anesthesia Preop lab: CBC WBC 15.0 K/mm3 (4.4-11.0) H 08/03/24 09:08/03/24 RBC 5.10 M/mm3 (4.6-6.2) 08/03/24 09:08/03/24 Hgb 15.8 g/dL (13.0-16.5) 08/03/24 09:34 08/03/24 Hct 44.6 % (40-54) 08/03/24 09:34 08/03/24 Plt Count 284 K/mm3 (150-450) 08/03/24 09:34 08/03/24 CHEMISTRY Potassium 4.1 mmol/L (3.3-5.1) 08/03/24 09:34 08/03/24 Sodium 135 mmol/L (133-145) 08/03/24 09:34 08/03/24 BUN 13 mg/dL (4-19) 08/03/24 09:34 08/03/24 Creatinine 1.00 mg/dL (0.70-1.20) 08/03/24 09:34 08/03/24 Glucose 178 mg/dL (70-99) H 08/03/24 09:34 08/03/24 TSH 2.22 uIU/mL (0.358-3.74) 01/23/20 08:34 01/23/20 COAG Pre-Assessment Diagnosis/Proposed Procedure Planned Operative Procedure(s): Laproscopic appendectomy Anesthesia History 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 When Was Last Pacemaker Check QUESTION #4 FULL TEXT: You/Your Family Experience fever (hyperthermia) with Anesthesia Last Oral Intake Last Oral intake: Last Oral Intake NPO since 22:00 08/03/24 11:04 Meds taken in AM with sips of Yes 08/03/24 11:04 water? Meds patient instructed to stool softner 08/03/24 11:04 take am of surgery PONV PONV - stacker operator: PONV - stacker operator Female HX of Motion Sickness HX of N/V After Surgery Non-Smoker Duration of Surgery greater than 60 minutes Number of Risk Factors PONV Score Height & Weight Height & Weight: Anesthesia: Height & Weight Height 5 ft 11 in 08/03/24 11:04 Weight: 106.186 kg 08/03/24 11:04 Body Mass Index (BMI) 32.6 08/03/24 11:04 Respiratory Assessment Respiratory Assessment - stacker operator: Respiratory Tract Infection Hx - stacker operator Hx Respiratory Tract Infection No 08/03/24 11:04 STOP Sleep Apnea STOP Sleep Apnea - stacker operator: STOP Sleep Apnea - stacker operator Hx Hypertension No 08/03/24 11:04 Hx Sleep Apnea Yes 08/03/24 11:04 CPAP No 08/03/24 11:04 BIPAP No 08/03/24 11:04 Do you snore loudly (louder than talking or can be heard Do you often feel tired/ fatigued/ sleepy during daytime? Has anyone observed you stop breathing during sleep? STOP Results Positive 08/03/24 11:04 QUESTION #5 FULL TEXT : Do you snore loudly (louder than talking or can be heard through closed doors)? Tobacco Use History Tobacco Use History - stacker operator: Tobacco Use History - stacker operator Tobacco Use Smoking Status Former smoker 08/03/24 09:29 Hx Tobacco Use Yes 10/17/18 15:24 Years Smoking Packs Smoked per Day Smoking Cessation Date was Yes - quit smoking within 15 08/03/24 09:29 within the last 15 years years Hx Smoking Cessation Date Hx Smoking Cessation No 08/03/24 09:29 Counseling Hematologic Medial History Hematologic Hx - stacker operator: Hematologic Medical Hx - rn clinical documentation specialist Hx of Blood Transfusion Hx of Transfusion in last 3 Months Date of Last Transfusion (if within last 3 months) Ever experience any problems with transfusion(s)? Specify any problems Hx of Preganancy in last 3 Months Nurse Filling Out Transfusion & Questions: Date: Time: Patient unable to answer at this time (ie. confused, unrespo /Reproduction History /Reproductive History - stacker operator: /Reproductive Hx- stacker operator Hx Now No 08/03/24 11:04 Gestational Age (in weeks): EDC: Hx Hx Para Hx Section SAB No 08/03/24 11:04 Active Medications Active Medications: Current Medications Generic Name Dose Route Start Last Admin Trade Name Freq PRN Reason Stop Dose Admin Sodium Chloride 1,000 mls @ 15 mls/hr 08/03/24 11:45 08/03/24 11:45 IV 15 mls/hr .Q48H OJSEF Administration PFSH Medical History Ulcer Blood in stool Constipation Epigastric pain Rectal bleeding Diarrhea Home Medications ?Medication ?Instructions ?Recorded ?Last Taken ?Type ciprofloxacin HCl 500 mg tablet 500 mg PO BID #14 tabs 10/15/18 10/17/18 Rx metronidazole 500 mg tablet 500 mg PO Q6H #40 tabs 10/15/18 10/17/18 Rx naproxen sodium 500 mg 500 mg PO DAILY PRN PRN Pain 10/17/18 10/17/18 History tablet,extended release 24 hr mphase ciprofloxacin HCl 500 mg tablet 500 mg PO BID #12 tabs 10/19/18 Unknown Rx Allergy/AdvReac Type Severity Reaction Status Date / Time ciprofloxacin AdvReac Severe Nausea Verified 08/03/24 09:19 Family History Mother Hypertension Father Thyroid cancer Surgical History Hx of colonoscopy History of esophagogastroduodenoscopy (EGD) Hx of vasectomy Social History Smoking Status: Former smoker alcohol intake: current alcohol intake frequency: a few times a week Alcohol type: beer substance use type: does not use caffeine: Yes what type of physical activity do you participate in: walking, running and weight training frequency: daily seatbelt use: always Review of Systems (Anesthesia) ROS Narrative System reviewed and no additional complaints, except as documented.
[2024-08-03] MEDS: Bupivacaine Mpf 0.5% 30 ML VIAL (13:04)
--- NOTE | 2024-08-03 13:35 | PCM.OPRPT ---
Operative Report (Standard) Operative Information Date of Procedure: 08/03/24 Pre-Operative Diagnosis: Acute appendicitis Post-Operative Diagnosis: Same Surgery/Procedure Performed: 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 appendectomy usability strategist: Yes Dimension Mill Worker: Shy Hdz Tasks completed by railways assistant: Opening & closing Type of Anesthesia: General/Supplemental RN Documented Start/Stop Times: Operation Date: 08/03/24 11:30 Case Time Into Pre-Op 08/03/24 11:31 Anesthesia Start 08/03/24 12:42 Into Room 08/03/24 12:42 Out of Pre-Op 08/03/24 12:43 Procedure Start 08/03/24 13:04 Procedure End 08/03/24 13:36 Anesthesia End 08/03/24 13:43 Out of Room 08/03/24 13:43 Into Recovery 08/03/24 13:46 Procedure Start Time: 13:04 Procedure Stop Time: 13:36 Select all DRAINS/GRAFTS/IMPLANTS that apply: None Special Medications: Zosyn 3.375 g IV x 1 for acute appendicitis in the ER Estimated Blood Loss: < 10 cc Specimen collected: Yes Description of specimen(s) removed: Appendix Description of surgery: Indications: 38-year-old male presented to the ER with new right lower quadrant pain at midnight/this morning. On workup he was found to have acute appendicitis on CT and a leukocytosis of 15. Patient was started on antibiotics in the ER for acute appendicitis-Zosyn 3.375 g IV x 1 Description of the procedure: The patient was placed on operating table in supine position. General anesthesia was induced. A timeout was completed verifying correct patient, procedure, position and special equipment prior to beginning procedure. Abdomen was prepped and draped in usual sterile fashion. Incision was made in the natural skin line above the umbilicus with a 15 blade scalpel. The fascia was elevated and incised. Entry into the peritoneum was confirmed visually and no bowel was noted in the vicinity of the incision. The Allen trocar was placed under direct vision. Abdomen insufflated with a pressure of 12-15 mmHg. Patient tolerated insertion well. The scope was inserted and the abdomen inspected. No injuries from initial trocar placement were noted. Minimal amount of fluid was seen in the right lower quadrant. An direct visualization 2 -5 mm trocars were placed one above the symphysis pubis and below the hairline and one in the left lower quadrant lateral to the rectus muscle. Care is taken to avoid injury to the bladder and inferior epigastric vessels. The table was placed in Trendelenburg position with the right side elevated. The appendix was grasped with atraumatic grasper and elevated. It was noted to be inflamed. A window was developed in the mesoappendix at the point between the base of the appendix and the cecum. An endoscopic 45 mm linear cutting stapler blue load was then used to divide and staple the base of the appendix. Enseal was used to divide the mesoappendix. The appendix was withdrawn into the Allen trocar after being placed endoscopically retrieval bag. Appendix was sent to pathology. The appendiceal stump was then irrigated and hemostasis was assured. Fluid was suctioned no other pathology was identified. Secondary trochars were removed under direct visualization. No bleeding was noted trocar sites. The laparoscope withdrawn and the umbilical trocar removed. The abdomen was allowed to collapse. Local anesthesia of 30 mL of 0.25% Marcaine was used at the incision sites. The umbilical trocar site was closed with the [id number] 0 Vicryl suture. The skin was closed using sutures of 4-0 Monocryl and Steri-Strips. The patient was extubated. The patient tolerated the procedure well and was taken to the postanesthesia care unit in satisfactory condition. Surgical Findings: See operative report Complications Complications: No
[2024-08-03] MEDS: Sugammadex Sodium 200 MG/2 ML VIAL IV (13:36)
--- NOTE | 2024-08-03 13:37 | DCINST_ITS ---
Discharge Instructions Diet Discharge Diet: Light diet - advance as tolerated Activity Discharge Activity: May Not Drive (while taking narcotic pain medications.) May shower in (days): 1 Lifting Restrictions: no lifting >20 lbs x 2 wks, no strenuous exercise for 4 wks Dressing / Incision Call your doctor if your incision/area has: Continuous Slow Oozing, Sudden Increased Bleeding, Increased Pain/ Swelling, Increased Redness, Foul Smelling Discharge and Swelling at the incision site Call your doctor if you observe: Fever of 101 or Higher Remove Dressing in: 2 days Cleanse incision/area with: Soap & Water Additional Dressing/Incision Instructions:: Steri-Strips will fall off in 7 to 10 days, if they do not fall off okay to remove after 10 days. Follow Up Care Please Follow Up With: Virginie Bolden MD When: Call the office for a follow-up appointment 2 weeks; after 5 PM and on the weekends call [phone] with any concerns. Test Results: Test results from this visit will be discussed in further detail at your follow- up appointment, if applicable. Discharge Plan Admission Attending Provider: Virginie Bolden Primary Care Provider: Care Physician,No Primary Instructions Print Language: Croatian Discharge Orders/Prescriptions Prescriptions: New oxycodone 5 mg capsule 5 mg PO Q6H PRN (Reason: pain) 3 Days Qty: 10 0RF Continued naproxen sodium 500 MG tablet, ER multiphase 24 hr 500 mg PO DAILY PRN PRN (Reason: Pain) Discontinued ciprofloxacin HCl 500 MG tablet 500 mg PO BID Qty: 14 0RF metronidazole 500 MG tablet 500 mg PO Q6H Qty: 40 0RF ciprofloxacin HCl 500 MG tablet 500 mg PO BID Qty: 12 0RF Referrals / Follow Up: Bandar Pemberton MD [Non-Staff] - Disposition Disposition (needs filled in before D/C Order can be placed): Home, Self Care
--- NOTE | 2024-08-03 13:46 | PCM.POST.ANE ---
Anesthesia: Postop Eval I Current Vital Signs Temperature: 97.7 F Pulse Rate: 93 Blood Pressure: 127/64 Respiratory Rate: 16 Pulse Ox: 98 Oxygen Delivery Method: Room Air Assessment Airway patent: Yes Spontaneous unlabored respirations: Yes Mental status: Awake and Calm nausea: No Vomiting: No Anesthesia Complication: No Fluid Hydration Crystalloid volume administer (ml): 1,000 Total IV fluid infused: 1,000 Progress Note Anesthesia document: Postop Eval 1 completed: Yes
[2024-08-03] MEDS: Ketorolac 30 MG/ML Syringe IV (14:05)
--- NOTE | 2024-08-03 14:31 | POSTOPAN2_ITS ---
Anesthesia Postop Eval I Sum Postop Eval Completion status Anesthesia document: Postop Eval 1 completed: Yes Anesthesia Postop Eval I Summary Anesthesia Postop Eval I Summary: Anesthesia Postop Eval I: Assessment Summary Airway patent Yes 08/03/24 13:47 BRANCH EXAMINER.[email or web address] Spontaneous unlabored Yes 08/03/24 13:47 BRANCH EXAMINER.GDOTT respirations Mental status Awake,Calm 08/03/24 13:47 BRANCH EXAMINER.GDOTT nausea No 08/03/24 13:47 BRANCH EXAMINER.GDOTT Vomiting No 08/03/24 13:47 BRANCH EXAMINER.GDOTT Anesthesia Postop Eval I: Fluid Summary Crystalloid volume administer 1,000 08/03/24 13:47 BRANCH EXAMINER.GDOTT (ml) Colloids volume administered ( ml) Blood Product volume administered (ml) Total IV fluid infused 1,000 08/03/24 13:47 BRANCH EXAMINER.GDOTT Anesthesia Postop Eval I: Summary Notes Anesthesia Complication No 08/03/24 13:47 BRANCH EXAMINER.GDOTT Anesthesia Complication Comment: Post-operative progress note Anesthesia: Postop Eval II Evaluation Mental status: Awake Pain Level: 2 nausea: No Vomiting: No
--- NOTE | 2024-08-03 14:31 | PCM.POSTANE2 ---
Anesthesia Postop Eval I Sum Postop Eval Completion status Anesthesia document: Postop Eval 1 completed: Yes Anesthesia Postop Eval I Summary Anesthesia Postop Eval I Summary: Anesthesia Postop Eval I: Assessment Summary Airway patent Yes 08/03/24 13:47 LONGITUDINAL FLOAT OPERATOR.[email or web address] Spontaneous unlabored Yes 08/03/24 13:47 LONGITUDINAL FLOAT OPERATOR.GDOTT respirations Mental status Awake,Calm 08/03/24 13:47 LONGITUDINAL FLOAT OPERATOR.GDOTT nausea No 08/03/24 13:47 LONGITUDINAL FLOAT OPERATOR.GDOTT Vomiting No 08/03/24 13:47 LONGITUDINAL FLOAT OPERATOR.GDOTT Anesthesia Postop Eval I: Fluid Summary Crystalloid volume administer 1,000 08/03/24 13:47 LONGITUDINAL FLOAT OPERATOR.GDOTT (ml) Colloids volume administered ( ml) Blood Product volume administered (ml) Total IV fluid infused 1,000 08/03/24 13:47 LONGITUDINAL FLOAT OPERATOR.GDOTT Anesthesia Postop Eval I: Summary Notes Anesthesia Complication No 08/03/24 13:47 LONGITUDINAL FLOAT OPERATOR.GDOTT Anesthesia Complication Comment: Post-operative progress note Anesthesia: Postop Eval II Evaluation Mental status: Awake Pain Level: 2 nausea: No Vomiting: No
[2024-08-03] MEDS: Acetaminophen 325 MG Tablet 650 MG PO (15:38)
[2024-08-03] MEDS: oxyCODONE 5 MG Tablet PO (15:38)
== END 2024-08-03 16:22 | disposition home or self-care (01) ==
LOC: ED 11:00 → SDC 11:04 → ACINP 11:05
PROVIDERS: Emergency Provider Emergency Medicine; Visit Provider Surgery
PROC: 0DTJ4ZZ Resection of Appendix, Percutaneous Endoscopic Approach (ICD-10-PCS; CPT 44970; principal; 2024-08-03 11:10)
DX: K35.80 Unspecified acute appendicitis (principal); Z87.891 Personal history of nicotine dependence
CPT/HCPCS: 44970; 00840; 74177; 80053; 81001; 83690; 85025; 88304; 99284; Q9967; J2405

== ENCOUNTER → 2024-11-06 | Outpatient (CLI) | payer OTHER, SELFPAY ==
[2024-11-06 18:20] LABS: AST(SGOT) 49 U/L (<=37); Alanine Aminotransfer ALT/SGPT 64 U/L (<=46); Albumin, Serum 4.5 g/dL (3.5-5.0); Alkaline Phosphatase 51 U/L (40-129); Anion Gap 13 (5-15); BUN 13 mg/dL (4-19); BUN/Creat Ratio 13.8 RATIO (10-20); Calcium,Total 9.4 mg/dL (7.6-11.0); Carbon Dioxide 24.2 mmol/L (21.0-32.0); Chloride 103 mmol/L (98-108); Cholesterol 178 mg/dL (<=200); Globulin 2.9 g/dL (2.2-4.2); Glucose 87 mg/dL (70-99); Low Density Lipoprotein Calc. 115 mg/dL; Potassium 3.9 mmol/L (3.3-5.1); Triglycerides 99 mg/dL; Very Low Density Lipoprotein 20 mg/dL (5-40); cholesterol:hdl ratio screen 4.09
== END | disposition home or self-care (01) ==
LOC: BFHLAB 13:54
PROVIDERS: PCP Family Medicine; Visit Provider Family Medicine
DX: Z00.00 Encounter for general adult medical examination without abnormal findings (principal)
CPT/HCPCS: 36415; 80053; 80061; 83036

== ENCOUNTER → 2024-11-23 | Outpatient (CLI) | payer OTHER, SELFPAY ==
--- NOTE | 2024-11-23 12:47 | RAD_ITS ---
PROCEDURE: SHOULDER MIN 2 VIEWS 11/23/2024 REASON FOR EXAM: PAIN IN RIGHT SHOULDER TECHNIQUE: Procedure Code: RADSH Modality: DX Procedure: SHOULDER MIN 2 VIEWS Laterality: Right COMPARISON: None. 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 The right glenohumeral joint is unremarkable in appearance. No acute fracture or dislocation otherwise noted Reading Location: [place] [id number]
== END | disposition home or self-care (01) ==
LOC: RAD 12:46
PROVIDERS: PCP Family Medicine; Referring Provider Family Medicine; Visit Provider Family Medicine
DX: M25.511 Pain in right shoulder (principal)
CPT/HCPCS: 73030

== ENCOUNTER → 2025-02-28 | Outpatient (CLI) | payer OTHER, SELFPAY ==
--- NOTE | 2025-02-28 16:18 | MRI_ITS ---
PROCEDURE: UPPER EXT JOINT ONLY(ROUTINE) 02/28/2025 REASON FOR EXAM: R SHOULDER PAIN, RESCURRENT, PERSISTENT, RC PATHOLOGY ENRIQUE TECHNIQUE: UPPER EXT JOINT ONLY(ROUTINE) Multiplanar and multisequence images were obtained without IV contrast administration. COMPARISON: COMPARISON: 23 November 2024 FINDINGS: Bone Marrow: Mild, likely degenerative marrow within the acromioclavicular joint and humerus. AC joint findings which can also be seen with repetitive microtrauma. Marrow edema is also noted in the inferior glenoid with questionable tiny inferior glenoid fracture with localized soft tissue edema. Effusion: No joint effusion. Soft Tissues: The soft tissues are otherwise unremarkable. Ligaments and Tendons: The rotator cuff tendons demonstrate a partial-thickness, greater than 70% articular surface tear just distal to the musculotendinous junction (image 11 of the coronal T2 sequence. No evidence of complete or retracted tear. Evaluation of the labrum is limited due to lack of significant fluid although an anterior labral tear is suggested with T2 hyperintense paralabral cysts. MRI/Upper Ext Joint Only(Routine) IMPRESSION: 1. Possible inferior glenoid rim fracture, nondisplaced. 2. Partial tear of the supraspinatus tendon, 70% by volume without evidence of complete or retracted tear. 3. Questionable anterior labral tear with associated paralabral cysts. Reading Location: [id number]
== END | disposition home or self-care (01) ==
LOC: MRI 15:59
PROVIDERS: PCP Family Medicine; Referring Provider Family Medicine; Visit Provider Family Medicine
DX: M75.41 Impingement syndrome of right shoulder (principal)
CPT/HCPCS: 73221

== ENCOUNTER → 2025-03-09 | Outpatient (CLI) | payer OTHER, SELFPAY ==
--- OUTSIDE RECORDS SUMMARY | 2025-03-09 15:09 | XMS RPT_ITS | CCD ---
Author Organization [facility] Care Team Providers Care [employer] Name Role Phone Brenda Carmona LPN Unavailable Unavailab le Brenda Carmona LPN N Unavailable Unavailab le Augusto OLMOSN, Emilia N Unavailable Vic Peters MD Unavailable Cogar OUTSOLE SCHEDULER, Emilia N Unavailable PROVIDER, UNKNOWN Referring Unavailable Bandar Pemberton Primary Care Unavailable Blake Horta Attending Unavailable Unavailable Primary Care Provider Unavailabl e Bandar Pemberton Primary Care Provider BANDAR PEMBERTON Primary Care Unavailable NO, PHYSICIAN Primary Care Unavailable NELLI BRIGGS Attending Unava ilable Anthony Kwok MD Emergency Provider [phone] Care Physician, No Primary Primary Care Provider Unavailable Dr. Virginie Bolden MD Attending Provider [phone] Dr. Virginie Bolden MD Other Provider Care Physician, No Primary Referring Provider Un available Talia Gant PA-C Attending Provider Dr. Brandon Ugarte DO Primary Care Provider Dr. Brandon Ugarte DO Attending Provider Virginie Bolden Attending Unavailable Care Physician, No Primary Primary Care Unava ilable Brandon Ugarte Primary Care Unavailable Brandon Ugarte Attending Unavailable Brandon Ugarte Referring Unavailable Brandon Ugarte Primary Care Unavailable Brandon Ugarte Attending Unavailable Care Physician, No Primary Primary Care Unava ilable Care Physician, No Primary Referring Unava ilable Talia Gant Attending Unavailable Virginie Bolden Consulting Unavailable Virginie Bolden Attending Unavailable Care Physician, No Primary Primary Care Unava ilable Care Physician, No Primary Primary Care Physicia n Unavailable Talia Gant PA-C Attending Physician Dr. Brandon Ugarte DO Primary Care Physician Dr. Brandon Ugarte DO Attending Physician Dr. Brandon Ugarte DO Referring Provider [phone] Allergies Allergy Classification Reported Allergen(s) Allergy Type Date of Onset Reaction(s) Facility (6 sources) Ciprofloxacin; Translations: [CIPROFLOXACIN] Drug Allergy 12-05-2020 Nausea [facility] Other [place] [facility] Medications Current Medications Medication Drug Class(es) Dates Sig (Normalized) Sig (Original) 24 hr naproxen 500 mg extended release oral tablet (4 sources) Nonsteroidal Anti-inflammatory Drug Start: 10-17-2018 take 1 tablet by mouth once daily as needed for pain omeprazole 20 mg delayed release oral capsule (6 sources) Proton Pump Inhibitor Start: 07-06-2018 take 1 capsule by mouth once daily omeprazole (PRILOSEC) 20 MG delayed release capsule Take 1 capsule by mouth daily 30 capsule 0 07/06/2018 Active Start: 02-05-2016 take 1 tablet by michelle th once daily before breakfast OMEPRAZOLE 20 MG TBEC 1 tab daily PO before breakfast OMEPRAZOLE [id number] Vic Peters MD traMADol hydrochloride 50 mg oral tablet (1 source) Opioid Agonist Start: 01-13-2019 End: 01-16-2019 take 1 tablet by mouth every six hours as needed for pain, then take 1 tablet by mouth as needed for pain traMADol (ULTRAM) 50 MG tablet Indications: Diverticulitis of colon Take 1 tablet by mouth every 6 hours as needed for Pain for up to 3 days. Intended supply: 3 days. Take lowest dose possible to manage pain 12 tablet 0 01/13/2019 01/16/2019 Active Completed/Discontinued Medications Medication Drug Class(es) Dates Sig (Normalized) Sig (Original) amoxicillin 875 mg / clavulanate 125 mg oral tablet (2 sources) Penicillin-class Antibacterial Start: 01-13-2019 End: 01-13-2019 amoxicillin-clavu lanate (AUGMENTIN) 875-125 MG per tablet 1 tablet Start: 01-13-2019 End: 01-23-2019 take 1 tablet by mouth twice daily amoxicillin-clavulanate (AUGMENTIN) 875-125 MG per tablet Take 1 tablet by mouth 2 times daily for 10 days 20 tablet 0 01/13/2019 01/23/2019 Active atropine sulfate 0.025 mg / diphenoxylate hydrochloride 2.5 mg oral tablet (9 sources) Anticholinergic, Cholinergic Muscarinic Antagonist, Antidiarrheal Start: 07-22-2016 take 1 tablet by mouth once daily DIPHENOXYLATE-ATROPINE 2.5-0.025 MG TABS 1 tab daily PO DIPHENOXYLATE-ATROPINE [id number] Vic Peters MD Start: 01-31-2016 End: 10-08-2017 Diphenoxylate-Atropine 1 TAB LET tablet Discontinued 1 {tbl} PO TWICE A DAY 60 2 January 31, 2016 1:00am October 08, 2017 3:45pm diarrhea Start: 01-31-2016 End: 10-08-2017 take 1 tablet by mouth twice daily Diphenoxylate-Atropine Discontinued 1 TABLET PO TWICE A DAY 60 January 31, 2016 1:00am October 08, 2017 3:45pm ciprofloxacin 500 mg oral tablet (8 sources) Quinolone Antimicrobial Start: 10-15-2018 End: 08-03-2024 take 1 tablet by mouth twice daily Ciprofloxacin Hcl 500 MG tablet Discontinued 500 mg PO TWICE A DAY 12 0 October 19, 2018 12:00am August 03, 2024 1:38pm Iopamidol (1 source) Radiographic Contrast Agent Start: 01-13-2019 End: 01-13-2019 iopamidol (ISOVUE-370) 76 % injection 75 mL metroNIDAZOLE 500 mg oral tablet (5 sources) Nitroimidazole Antimicrobial Start: 10-15-2018 End: 08-03-2024 take 1 tablet by mouth every six hours Metronidazole 500 MG tablet Discontinued 500 mg PO EVERY 6 HOURS 40 October 15, 2018 12:00am August 03, 2024 1:38pm End: 01-13-2019 metroNIDAZOLE (FLAGYL PO) Ta ke by mouth 0 01/13/2019 Discontinued (Therapy completed) 1 ml morphine sulfate 4 mg/ml cartridge (2 sources) Opioid Agonist Start: 01-13-2019 End: 01-13-2019 morphine injection 2 mg 2 ml ondansetron 2 mg/ml injection (4 sources) Serotonin-3 Receptor Antagonist Start: 01-13-2019 End: 01-13-2019 ondansetron (ZOFRAN) injection 4 mg Start: 01-13-2019 End: 01-13-2019 take 1 tablet by mouth every eight hours as needed for nausea ondansetron (ZOFRAN ODT) 4 MG disintegrating tablet Take 1 tablet by mouth every 8 hours as needed for Nausea or Vomiting 12 tablet 0 01/13/2019 Active oxyCODONE hydrochloride 5 mg oral capsule (3 sources) Opioid Agonist Start: 08-03-2024 End: 08-17-2024 take 1 capsule by mouth every six hours as needed for pain Oxycodone 5 mg capsule Discontinued 5 mg PO EVERY 6 HOURS as needed for pain 10 3 0 August 03, 2024 August 17, 2024 8:09am Postoperative pain Other acute postprocedural pain predniSONE 10 mg oral tablet (2 sources) Corticosteroid Start: 09-20-2016 PREDNISONE 10 MG TABS take 4 pills for 6 days, take 3 pills for 4 days, 2 pills for 4 days, 1 pill for 4 days PREDNISONE [id number] Meghan Ambrocio PA-C Problems Active Problems Problem Classification Problem Date Documented Da te Episodic/Chronic Chronic ulcer of skin (4 sources) Ulcer; Translations: [Ulcerative lesion] 10-08-2017 Chronic Diverticulosis and diverticulitis (9 sources) Diverticulitis of colon; Translations: [Diverticulitis of intestine] 08-03-2024 Chronic External cause codes: Natural/environment (2 sources) Exposure to other specified factors, initial encounter; Translations: [Exposure to other specified factors, initial encounter] Onset: 07-06-2018 Gastrointestinal hemorrhage (13 sources) Rectal hemorrhage; Translations: [Hemorrhage of anus and rectum] Onset: 01-17-2016 01-17-2016 Episodic Nausea and vomiting (2 sources) Nausea with vomiting, unspecified; Translations: [Nausea with vomiting, unspecified] Onset: 07-06-2018 Episodic Nonspecific chest pain (3 sources) Chest pain, unspecified; Translations: [Atypical chest pain] Onset: 07-06-2018 Episodic Other gastrointestinal disorders (4 sources) Diarrhea; Translations: [Diarrhea, unspecified] 10-08-2017 Episodic Other gastrointestinal disorders (4 sources) Constipation; Translations: [Constipation, unspecified] 10-08-2017 Episodic Other injuries and conditions due to external causes (2 sources) Other injury of unspecified body region, initial encounter; Translations: [Other injury of unspecified body region, initial encounter] Onset: 07-06-2018 Other non-traumatic joint disorders (1 source) Pain in right shoulder; Translations: [Pain in right shoulder] Onset: 12-01-2024 Episodic Residual codes; unclassified (4 sources) Past history of procedure; Translations: [Other specified postprocedural states] 08-03-2024 Episodic Residual codes; unclassified (4 sources) History of colonoscopy; Translations: [Other specified postprocedural states] 08-03-2024 Episodic Residual codes; unclassified (5 sources) Acquired absence of other specified parts of digestive tract; Translations: [Status post laparoscopic appendectomy] 08-03-2024 Episodic Substance-related disorders (2 sources) Nicotine dependence, chewing tobacco, uncomplicated; Translations: [Nicotine dependence, chewing tobacco, uncomplicated] Onset: 07-06-2018 Chronic Past or Other Problems Problem Classification Problem Date Documented Da te Episodic/Chronic Abdominal pain (17 sources) Right lower quadrant pain; Translations: [Epigastric pain] Onset: 01-17-2016 01-17-2016 Episodic Allergic reactions (4 sources) Contact dermatitis due to plants; Translations: [Unspecified contact dermatitis due to plants, except food] Onset: 09-13-2016 09-13-2016 Episodic Appendicitis and other appendiceal conditions (6 sources) Acute appendicitis; Translations: [Unspecified acute appendicitis] Onset: 08-18-2024 08-03-2024 Episodic Joint disorders and dislocations; trauma-related (5 sources) Other tear of medial meniscus, current injury, right knee, initial encounter; Translations: [Other tear of medial meniscus, current injury, right knee, initial encounter] Onset: 04-13-2016 04-13-2016 Episodic Other gastrointestinal disorders (5 sources) Chronic diarrhea; Translations: [Noninfective gastroenteritis and colitis, unspecified] Onset: 01-17-2016 01-17-2016 Episodic Other non-traumatic joint disorders (9 sources) Effusion, right knee; Translations: [Knee pain] Onset: 04-13-2016 04-15-2016 Episodic Other non-traumatic joint disorders (1 source) Knee pain; Translations: [Pain in right knee] Onset: 04-13-2016 04-13-2016 Episodic Skin and subcutaneous tissue infections (8 sources) Cellulitis of chest wall ; Translations: [Cellulitis of upper limb] Onset: 09-13-2016 09-13-2016 Episodic Results Test Name Value Interpretation Reference Range Facility Shoulder min 2 Viewson 11-23 Shoulder min 2 Views [facility] [address] [place] [address] Shoulder min 2 Views MR#: [id number] Acct: [id number] Name: RAVEN SIMMONS Rep #: [id number] : 1985 M 38 From: Fausto Damico PCP: Dr. Brandon Ugarte DO Status: REG CLI Study: Shoulder min 2 Views Date of Exam: 11/23/24 Exam# [id number] Ordering Dr: Brandon Ugarte DO PROCEDURE: SHOULDER MIN 2 VIEWS 11/23/2024 REASON FOR EXAM: PAIN IN RIGHT SHOULDER TECHNIQUE: Procedure Code: RADSH Modality: DX Procedure: SHOULDER MIN 2 VIEWS Laterality: Right COMPARISON: None. 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 The right glenohumeral joint is unremarkable in appearance. No acute fracture or dislocation otherwise noted Reading Location: [place] [address] CC: Dr. Brandon Ugarte DO Quantitative Analyst: Signed Normal [facility] Anion gap in Serum or Plasma Ordered By: Brandon Ugarte on 11-06-2024 Anion gap [Moles/Vol] 13 mmol/L 5-15 [place] BUN/creatinine ratioOrdered By: Brandon Ugarte on 11-06-2024 Urea nitrogen/Creatinine [Mass ratio] 13.8 mg/mg 10-20 [facility] Bilirubin, totalOrdered By: Brandon Ugarte on 11-06-2024 Bilirubin [Mass/Vol] 0.32 mg/dL 0.00-1.30 [facility] Calculated very low density lipoprotein (VLDL) cholesterol measurementOrdered By: Brandon Ugarte on 11-06-2024 Calculated very low density lipoprotein (VLDL) cholesterol measurement 20 mg/dL 5-40 [facility] Carbon dioxide, total [Moles /volume] in Central venous bloodOrdered By: Brandon Ugarte on 11-06-2024 CO2 [Moles/Vol] 24.2 mmol/L 21.0-32.0 [facility] Chloride assayOrdered By: Lucia Ugarte on 11-06-2024 Chloride [Moles/Vol] 103 mmol/L 98-108 [facility] Comprehensive Metabolic Prof ilon 11-06-2024 Albumin [Mass/Vol] 4.5 g/dL Normal 3.5-5.[address] [facility] Comment on above: Performed By: #### L 500.4050, L501.9985, L500.4100 ####[facility] [address] [place], [address] Albumin/Globulin [Mass ratio] 1.5 {ratio} Normal 0.9-2.4 [facility] Comment on above: Performed By: #### L 500.4050, L501.9985, L500.4100 ####[facility] [address] [place], [address] ALK PHOS 51 U/L Normal 40-129 [facility] Comment on above: Performed By: #### L 500.4050, L501.9985, L500.4100 ####[facility] [address] [place], [address] ALT [Catalytic activity/Vol] 64 U/L High <=46 [facility] Comment on above: Performed By: #### L 500.4050, L501.9985, L500.4100 ####[facility] [address] [place], [address] AST [Catalytic activity/Vol] 49 U/L High <=37 [facility] Comment on above: Performed By: #### L 500.4050, L501.9985, L500.4100 ####[facility] [address] [place], [address] Bilirubin [Mass/Vol] 0.32 mg/dL Normal 0.00-1.30 [facility] Comment on above: Performed By: #### L 500.4050, L501.9985, L500.4100 ####[facility] [address] [place], [address] BUN/CRE 13.8 RATIO Normal 10-20 [facility] Comment on above: Performed By: #### L 500.4050, L501.9985, L500.4100 ####[facility] [address] [place], [address] Calcium [Mass/Vol] 9.4 mg/dL Normal 7.6-11.[address] [facility] Comment on above: Performed By: #### L 500.4050, L501.9985, L500.4100 ####[facility] [address] [place], [address] Chloride [Moles/Vol] 103 mmol/L Normal 98-108 [facility] Comment on above: Performed By: #### L 500.4050, L501.9985, L500.4100 ####[facility] [address] [place], [address] CO2 [Moles/Vol] 24.2 mmol/L Normal 21.0-32.0 [facility] Comment on above: Performed By: #### L 500.4050, L501.9985, L500.4100 ####[facility] [address] [place], [address] Creatinine [Mass/Vol] 0.93 mg/dL Normal 0.70-1.20 [place] Comment on above: Performed By: #### L 500.4050, L501.9985, L500.4100 ####[facility] [address] [place], [address] GAP 13 Normal 5-15 [facility] Comment on above: Performed By: #### L 500.4050, L501.9985, L500.4100 ####[facility] [address] [place], [address] GFR/1.73 sq M.predicted among non-blacks MDRD (S/P/Bld) [Vol rate/Area] 109 mL/min/{1.73_m2} Normal >60 [facility] Comment on above: Result Comment: mL/m in/1.73m2 CKD-EPI Creatinine Equation (2020) Performed By: #### L 500.4050, L501.9985, L500.4100 ####[facility] [address] [place], [address] Globulin (S) [Mass/Vol] 2.9 g/dL Normal 2.2-4.2 [facility] Comment on above: Performed By: #### L 500.4050, L501.9985, L500.4100 ####[facility] [address] [place], [address] Glucose [Mass/Vol] 87 mg/dL Normal 70-[address] [facility] Comment on above: Performed By: #### L 500.4050, L501.9985, L500.4100 ####[facility] [address] [place], [address] Potassium [Moles/Vol] 3.9 mmol/L Normal 3.3-5.1 [place] Comment on above: Performed By: #### L 500.4050, L501.9985, L500.4100 ####[facility] [address] [place], [address] Sodium [Moles/Vol] 141 mmol/L Normal 133-[address] [facility] Comment on above: Performed By: #### L 500.4050, L501.9985, L500.4100 ####[facility] [address] [place], [address] T PROT 7.4 g/dL Normal 5.9-8.4 [facility] Comment on above: Performed By: #### L 500.4050, L501.9985, L500.4100 ####[facility] [address] [place], [address] Urea nitrogen [Mass/Vol] 13 mg/dL Normal 4-19 [facility] Comment on above: Performed By: #### L 500.4050, L501.9985, L500.4100 ####[facility] [address] [place], [address] Glomerular filtration rate ( GFR) estimation/1.73 sq m using serum, plasma, or whole bOrdered By: Brandon Ugarte on 11-06-2024 GFR/1.73 sq M.predicted among non-blacks MDRD (S/P/Bld) [Vol rate/Area] 109 mL/min/{1.73_m2} >60 [facility] Comment on above: mL/min/1.73m2 CKD-EP I Creatinine Equation (2020) Hemoglobin A1con 11-06-2024 HbA1c (Bld) [Mass fraction] 5.7 % Normal <=5.6 [facility] Comment on above: Result Comment: Norm al < 5.7 % Prediabetic 5.7 - 6.4 % Diabetic >or= 6.5 % Please note range changes. Performed By: #### L 500.4050, L501.9985, L500.4100 ####[facility] [address] [place], [address] Hemoglobin A1c percentageOrd ered By: Brandon Ugarte on 08-25-2025 HbA1c (Bld) [Mass fraction] 5.7 % <5.7 [facility] Comment on above: Normal < 5.7 % Predi abetic 5.7 - 6.4 % Diabetic >or= 6.5 % Please note range changes. LDL calc ser/plasOrdered By: Brandon Ugarte on 11-06-2024 Cholesterol in LDL [Mass/Vol] 115 mg/dL [facility] Comment on above: Smotcyoitf=393-195 m g/dL & Higher Xqfm=842 mg/dL or greaterFriedwald Equation for LDL-C Laboratory - Chemistry and C hemistry - challengeOrdered By: Brandon Ugarte on 11-06-2024 AST [Catalytic activity/Vol] 49 U/L High <38 [facility] Lipid Profileon 11-06-2024 CHOL:HDL 4.09 Normal [facility] Comment on above: Performed By: #### L 500.4050, L501.9985, L500.4100 ####[facility] [address] [place], [address] Cholesterol [Mass/Vol] 178 mg/dL Normal <=200 [facility] Comment on above: Result Comment: Chol esterol level, Desirable <200 mg/dL Borderline high cholesterol 200-239 mg/dL High cholesterol >=240 mg/dL Recommendations of the NCEP Adult Treatment Panel for the following risk-cutoff thresholds for the [place] population. Performed By: #### L 500.4050, L501.9985, L500.4100 ####[facility] [address] [place], [address] Cholesterol in HDL [Mass/Vol] 44 mg/dL Normal [facility] Comment on above: Result Comment: Dori onal Cholesterol Education Program (NCEP) guidelines: <40 mg/dL: Low HDL-cholesterol (major risk factor for CHD) >= 60 mg/dL: High HDL-cholesterol (negative risk factor for CHD) HDL-cholesterol is affected by a number of factors, e.g. smoking, exercise, hormones, sex and age. Performed By: #### L 500.4050, L501.9985, L500.4100 ####[facility] [address] [place], [address] Cholesterol in LDL [Mass/Vol] 115 mg/dL Normal [facility] Comment on above: Result Comment: Bord jukdjn=065-053 mg/dL Higher Riph=262 mg/dL or greater Friedwald Equation for LDL-C Performed By: #### L 500.4050, L501.9985, L500.4100 ####[facility] [address] [place], [address] Cholesterol in VLDL [Mass/Vol] 20 mg/dL Normal 5-40 [facility] Comment on above: Performed By: #### L 500.4050, L501.9985, L500.4100 ####[facility] [address] [place], [address] Triglyceride [Mass/Vol] 99 mg/dL Normal [facility] Comment on above: Result Comment: The drugs N-Acetylcysteine and Metamizole may falsely depress this assay. Normal range: <150 mg/dL Borderline High: 150-199 mg/dL High: 200-499 mg/dL Very High: >500 mg/dL Performed By: #### L 500.4050, L501.9985, L500.4100 ####[facility] [address] [place], [address] Potassium measurement (mass/ volume)Ordered By: Brandon Ugarte on 11-06-2024 Potassium (Unsp spec) [Mass/Vol] 3.9 mmol/L 3.3-5.1 [facility] Screening total cholesterol/ high density lipoprotein (HDL) cholesterol ratioOrdered By: Brandon Ugarte on 11-06-2024 Cholesterol.total/Chol esterol in HDL [Mass ratio] 4.09 {ratio} [facility] Serum creatinine measurement (mass/volume)Ordered By: Brandon Ugarte on 11-06-2024 Creatinine [Mass/Vol] 0.93 mg/dL 0.70-1.20 [place] Serum globulin measurementOr dered By: Brandon Ugarte on 11-06-2024 Globulin (S) [Mass/Vol] 2.9 g/dL 2.2-4.2 [facility] Serum glucose measurement (m ass/volume)Ordered By: Brandon Ugarte on 11-06-2024 Glucose [Mass/Vol] 87 mg/dL 70-[address] [facility] Serum or plasma alanine manzo otransferase (ALT) measurementOrdered By: Brandon Ugarte on 11-06-2024 ALT [Catalytic activity/Vol] 64 U/L High <47 [facility] Serum or plasma albumin eden urement (mass/volume)Ordered By: Brandon Ugarte on 11-06-2024 Albumin [Mass/Vol] 4.5 g/dL 3.5-5.[address] [facility] Serum or plasma albumin/glob ulin mass ratioOrdered By: Brandon Ugarte on 11-06-2024 Albumin/Globulin [Mass ratio] 1.5 {ratio} 0.9-2.4 [facility] Serum or plasma alkaline yamile sphatase measurementOrdered By: Brandon Ugarte on 11-06-2024 ALP [Catalytic activity/Vol] 51 U/L 40-129 [facility] Serum or plasma calcium eden urement (mass/volume)Ordered By: Brandon Ugarte on 11-06-2024 Calcium [Mass/Vol] 9.4 mg/dL 7.6-11.[address] [facility] Serum or plasma cholesterol in HDL measurement (mass/volume)Ordered By: Brandon Ugarte on 11-06-2024 Cholesterol in HDL [Mass/Vol] 44 mg/dL >40 [facility] Comment on above: National Cholesterol Education Program (NCEP) guidelines:<40 mg/dL: Low HDL-cholesterol (major risk factor for CHD)>= 60 mg/dL: High HDL-cholesterol (negative risk factor for CHD)HDL-cholesterol is affected by a number of factors, e.g. smoking, exercise, hormones, sex and age. Serum or plasma cholesterol measurement (mass/volume)Ordered By: Brandon Ugarte on 11-06-2024 Cholesterol [Mass/Vol] 178 mg/dL <201 [facility] Comment on above: Cholesterol level, D esirable <200 mg/dLBorderline high cholesterol 200-239 mg/dLHigh cholesterol >=240 mg/dLRecommendations of the NCEP Adult Treatment Panel for the following risk-cutoff thresholds for the [place] population. Serum or plasma urea nitroge n measurement (mass/volume)Ordered By: Brandon Ugarte on 11-06-2024 Urea nitrogen [Mass/Vol] 13 mg/dL 4-19 [facility] Sodium levelOrdered By: Brandon Ugarte on 11-06-2024 Sodium [Moles/Vol] 141 mmol/L 133-[address] [facility] Total proteinOrdered By: Sylvie Ugarte on 11-06-2024 Protein [Mass/Vol] 7.4 g/dL 5.9-8.[address] [facility] Triglycerides measurementOrd ered By: Brandon Ugarte on 11-06-2024 Triglyceride [Mass/Vol] 99 mg/dL <199 [facility] Comment on above: The drugs N-Acetylcy steine and Metamizole may falsely depress this assay. Normal range: <150 mg/dLBorderline High: 150-199 mg/dLHigh: 200-499 mg/dLVery High: >500 mg/dL Surgery Visit Reporton 08-17 Surgery Visit Report [facility] [address] [place] [address] OFFICE VISIT Date of Service: 08/17/24 MR#: [id number] Acct: [id number] Name: RAVEN SIMMONS Rep #: [id number] : 1985 Provider: DAMON grubbs Age/Sex: 38/M Location: [facility] Status: Signed Intake Vital Signs 08/03/24 11:04 Height 5 ft 11 in Intake Visit Reasons: APPY 08-03 Chief Complaint: appy f/u [employer] Required: No Is patient in pain?: No Allergies ciprofloxacin Adverse Reaction (Severe, Verified 08/17/24 08:09) Nausea Medications ???Medication ???Instructions ???Recorded ???Confirmed ???Type naproxen sodium 500 mg 500 mg PO DAILY PRN PRN Pain 10/1710/17/18 History tablet,extended release 24 hr mphase Have you fallen in the past year?: No Subjective Details: Patient is a 38 y/o M I am following s/p laparoscopic appendectomy by Dr. Bolden on 08/03/24. Patient tolerated the procedure well. Patient denies any nausea, vomiting, fever since the procedure. He notes appetite and bowel habits have returned to normal. He notes very minimal amount of incisional discomfort. Pathology below was reviewed with the patient. MICROSCOPIC DIAGNOSIS A. Appendix, appendectomy: - Acute appendicitis, acute serositis Objective Details: Abdomen- soft, nontender. Incisions c/d/i. No erythema or infection noted. Coding Level of Care Code Global Post Op Diagnoses S/P laparoscopic appendectomy Z90.49 [facility] Medical History Ulcer Blood in stool Constipation Epigastric pain Rectal bleeding Diarrhea Surgical History S/P laparoscopic appendectomy Hx of colonoscopy History of esophagogastroduodenoscopy (EGD) Hx of vasectomy Family History Mother Hypertension Father Thyroid cancer Social History Smoking Status: Former smoker alcohol intake: current alcohol intake frequency: a few times a week Alcohol type: beer substance use type: does not use caffeine: Yes what type of physical activity do you participate in: walking, running and weight training frequency: daily seatbelt use: always Assessment and Plan (No Qualifiers) Assessment and Plan (1) S/P laparoscopic appendectomy: Status: Acute Plan: No restrictions at this time Discussed signs of infection and when to contact our office Follow-up as needed 08/17/24 1462 Date Talia Moran Signature: Date (if applicable) CC: Normal [facility] Abdomen/Pelvis W IV Cont ONL Yon 08-03-2024 Abdomen/Pelvis W IV Cont ONLY [facility] Imaging Services [address] [place], [place] [address] Abdomen/Pelvis W IV Cont ONLY MR#: [id number] Acct: [id number] Name: RAVEN SIMMONS Rep #: [id number] : 1985 M 38 From: Phan Danielle MD PCP: Care Physician,No Primary Status: REG ER Study: Abdomen/Pelvis W IV Cont ONLY Date of Exam: Exam# [id number] Ordering Dr: Anthony Kwok MD PROCEDURE: ABDOMEN/PELVIS W IV CONT ONLY 08/03/2024 REASON FOR EXAM: PAIN TECHNIQUE: Abdomen and pelvis CT with intravenous contrast. Coronal and Sagittal reconstruction series were provided. PATIENT PREPARATION: Per protocol ORAL CONTRAST TYPE: None. CONTRAST: 92 cc Isovue 300 One or more dose reduction techniques were used (e.g., Automated exposure control, adjustment of the mA and/or kV according to patient size, use of iterative reconstruction technique. RADIATION DOSE SUMMARY: DLP: 1117.96 mGycm COMPARISON: None FINDINGS: Lung bases: Clear Liver: Unremarkable Gallbladder: Unremarkable Spleen: Unremarkable Pancreas: Unremarkable Adrenals: Unremarkable Kidneys: There is a 1.4 cm simple cyst in the left kidney, midpole. There is no renal stone or hydronephrosis. There is excretion by the right and left kidney demonstrated in the ureters. Bladder: Unremarkable Reproductive Organs: Unremarkable Bowel: There is a minimal stool load. The small-bowel loops are not distended. There is scattered diverticuli in the distal descending and sigmoid colon with no visible acute diverticulitis. Appendix: The appendix is dilated to 1.3 cm, with mild periappendiceal inflammation, image 68-73. Lymph nodes: There is no pathologic adenopathy by size criteria. Vasculature: Unremarkable Peritoneum / Retroperitoneum: There is no free air or free fluid Bones: Is no acute bony abnormality. CT/Abdomen/Pelvis W IV Cont ONLY IMPRESSION: The appendix is dilated to 1.3 cm, with mild periappendiceal inflammation, image 68-73. findings are consistent with acute appendicitis. Critical results were discussed with Dr. Kwok by Dr. Danielle at the time of dictation. Reading Location: [facility] CC: Dr. Anthony Kwok MD; No Primary Care Physician Quantitative Analyst: Signed Normal [facility] Absolute lymphocyte countOrd ered By: Anthony Kwok on 08-03-2024 Lymphocytes Auto (Unsp spec) [#/Vol] 0.83 10*3/uL 0.83-4.51 [facility] Absolute neutrophil countOrd ered By: Anthony Kwok on 08-03-2024 Neutrophils (Bld) [#/Vol] 13.4 10*3/uL High 2.0-7.7 [facility] Anion gap in Serum or Plasma Ordered By: Anthony Kwok on 08-03-2024 Anion gap [Moles/Vol] 11 mmol/L 5-15 [place] Automated lymphocyte count a s percentage of total leukocytesOrdered By: Anthony Kwok on 08-03-2024 Lymphocytes/100 WBC Auto (Unsp spec) 5.5 % Low 19-41 [facility] BUN/creatinine ratioOrdered By: Anthony Kwok on 08-03-2024 Urea nitrogen/Creatinine [Mass ratio] 12.8 mg/mg 10-20 [facility] Basophil percentageOrdered B y: Anthony Kwok on 08-03-2024 Basophils/100 WBC (Bld) 0.3 % 0-1 [facility] Bilirubin Test strip Ql (U)O rdered By: Anthony Kwok on 08-03-2024 Bilirubin Ql (U) Negative Negative [facility] Bilirubin, totalOrdered By: Anthony Kwok on 08-03-2024 Bilirubin [Mass/Vol] 0.53 mg/dL 0.00-1.30 [facility] CBC W/Diff, Automatedon 07-14 Absolute Lymph 0.83 X10 3/uL Normal 0.83-4.51 [facility] Comment on above: Performed By: #### L 500.4050, L100.0100, L501.2450 ####[facility] [address] [place], [place], [id number] Absolute Neut 13.4 X10 3/uL High 2.0-7.7 [facility] Comment on above: Performed By: #### L 500.4050, L100.0100, L501.2450 ####[facility] [address] [place], [address] Basophils/100 WBC (Bld) 0.3 % Normal 0-1 [facility] Comment on above: Performed By: #### L 500.4050, L100.0100, L501.2450 ####[facility] [address] [place], [address] Eosinophils/100 WBC (Bld) 0.5 % Normal 0-5 [facility] Comment on above: Performed By: #### L 500.4050, L100.0100, L501.2450 ####[facility] [address] [place], [address] Erythrocyte distribution width (RBC) [Ratio] 12.0 % Normal 11.6-14.6 [facility] Comment on above: Performed By: #### L 500.4050, L100.0100, L501.2450 ####[facility] [address] [place], [address] Hematocrit (Bld) [Volume fraction] 44.6 % Normal 40-54 [facility] Comment on above: Performed By: #### L 500.4050, L100.0100, L501.2450 ####[facility] [address] [place], [address] Hemoglobin (Bld) [Mass/Vol] 15.8 g/dL Normal 13.0-16.5 [facility] Comment on above: Performed By: #### L 500.4050, L100.0100, L501.2450 ####[facility] [address] [place], [address] IG% 0.500 Normal 0.0-0.9 [facility] Comment on above: Result Comment: IG% - Immature Granulocytes (promyelocytes, myelocytes and metamyelocytes) > 1% indicates that a LEFT SHIFT is Present. Performed By: #### L 500.4050, L100.0100, L501.2450 ####[facility] [address] [place], [address] Lymphocytes/100 WBC (Bld) 5.5 % Low 19-41 [facility] Comment on above: Performed By: #### L 500.4050, L100.0100, L501.2450 ####[facility] [address] [place], [address] MCH (RBC) [Entitic mass] 31.0 pg Normal 27.0-32.0 [facility] Comment on above: Performed By: #### L 500.4050, L100.0100, L501.2450 ####[facility] [address] [place], [address] MCHC (RBC) [Mass/Vol] 35.4 g/dL Normal 32-36 [place] Comment on above: Performed By: #### L 500.4050, L100.0100, L501.2450 ####[facility] [address] [place], [address] MCV (RBC) [Entitic vol] 87.5 fL Normal 80-94 [facility] Comment on above: Performed By: #### L 500.4050, L100.0100, L501.2450 ####[facility] [address] [place], [address] Monocytes/100 WBC (Bld) 4.2 % Normal 0-10 [facility] Comment on above: Performed By: #### L 500.4050, L100.0100, L501.2450 ####[facility] [address] [place], [address] Neutrophils/100 WBC (Bld) 89.0 % High 47-70 [facility] Comment on above: Performed By: #### L 500.4050, L100.0100, L501.2450 ####[facility] [address] [place], [address] Nucleated RBC (Bld) [#/Vol] 0 10*3/uL Normal 0-5 [facility] Comment on above: Performed By: #### L 500.4050, L100.0100, L501.2450 ####[facility] [address] [place], [address] Platelet mean volume (Bld) [Entitic vol] 10.0 fL Normal 6.2-12.0 [facility] Comment on above: Performed By: #### L 500.4050, L100.0100, L501.2450 ####[facility] [address] [place], [address] Platelets (Bld) [#/Vol] 284 10*3/uL Normal 150-450 [facility] Comment on above: Performed By: #### L 500.4050, L100.0100, L501.2450 ####[facility] [address] [place], [address] RBC (Bld) [#/Vol] 5.10 10*6/uL Normal 4.6-6.2 [facility] Comment on above: Performed By: #### L 500.4050, L100.0100, L501.2450 ####[facility] [address] [place], [address] RDW SD 38.5 fl Normal 35.1-43.9 [facility] Comment on above: Performed By: #### L 500.4050, L100.0100, L501.2450 ####[facility] [address] [place], [address] WBC (Bld) [#/Vol] 15.0 10*3/uL High 4.4-11.0 [facility] Comment on above: Performed By: #### L 500.4050, L100.0100, L501.2450 ####[facility] [address] [place], [address] CT ABDOMEN PELVIS WITH IV CO NTRAST ONLYon 08-03-2024 CT ABDOMEN PELVIS WITH IV CONTRAST ONLY EXAMINATION: CT ABDOMEN PELVIS WITH IV CONTRAST ONLY, 08/03/2024: HISTORY: Abdominal pain, acute, nonlocalized COMPARISON: None. TECHNIQUE: IV contrast enhanced CT imaging of the abdomen and pelvis was performed with 75 mL of Isovue 370 intravenous contrast. Sagittal and coronal reconstructions are provided. Dose reduction techniques were achieved by using automated exposure control and/or adjustment of mA and/or kV according to patient size and/or use of iterative reconstruction technique. FINDINGS: CT ABDOMEN: The lung bases are clear. The heart is unremarkable. There is mild hepatic steatosis. The gallbladder, pancreas, spleen, adrenal glands and right kidney are unremarkable. There is a 1.3 cm cortical cyst in the posterior upper pole of the left kidney. The left kidney is otherwise unremarkable. The stomach, small bowel, aorta and IVC appear within normal limits. CT PELVIS: A normal appendix is seen extending to the midline in the upper pelvis on images 70-78 of series 4. The pelvic small bowel loops and prostate are unremarkable. There is nonspecific wall thickening in the largely decompressed urinary bladder. There is mild colonic diverticulosis. No acute inflammatory change, free fluid, loculated fluid, free air, or soft tissue gas is seen in the abdomen or pelvis. No acute osseous abnormality or suspicious bony lesion is seen. IMPRESSION: 1. Mild wall thickening in the largely decompressed bladder may reflect bladder decompression or mild cystitis. No other potential acute findings are seen in the abdomen or pelvis. 2. Normal appendix. 3. Mild colonic diverticulosis. Please see above for additional nonacute findings. Workstation ID: [id number] Dictated by: FLORINA CHACON on WedAugust 03, 2024 4:43:10 AM EDT Transcribed by: FLORINA CHACON on WedAugust 03, 2024 4:43:10 AM EDT Finalized by: FLORINA CHACON on WedAugust 03, 2024 4:43:10 AM EDT [facility] Comment on above: Order Comment: Injur y/Trauma or Illness?:Illness/Other How long have you had these symptoms (acute/chronic)?:Acute Reason for exam?:abd pain starting today Type of Exam?:Initial Additional signs and symptoms?:nausea Carbon dioxide, total [Moles /volume] in Central venous bloodOrdered By: Anthony Kwok on 08-03-2024 CO2 [Moles/Vol] 25.6 mmol/L 21.0-32.0 [facility] Chloride assayOrdered By: Junior Kwok on 08-03-2024 Chloride [Moles/Vol] 98 mmol/L 98-108 [facility] Comprehensive Metabolic Prof ilon 08-03-2024 Albumin [Mass/Vol] 4.9 g/dL Normal 3.5-5.[address] [facility] Comment on above: Performed By: #### L 500.4050, L100.0100, L501.2450 ####[facility] [address] [place], [address] Albumin/Globulin [Mass ratio] 1.5 {ratio} Normal 0.9-2.4 [facility] Comment on above: Performed By: #### L 500.4050, L100.0100, L501.2450 ####[facility] [address] [place], [address] ALK PHOS 48 U/L Normal 40-129 [facility] Comment on above: Performed By: #### L 500.4050, L100.0100, L501.2450 ####[facility] [address] [place], [address] ALT [Catalytic activity/Vol] 119 U/L High <=46 [facility] Comment on above: Performed By: #### L 500.4050, L100.0100, L501.2450 ####[facility] [address] [place], [address] AST [Catalytic activity/Vol] 70 U/L High <=37 [facility] Comment on above: Performed By: #### L 500.4050, L100.0100, L501.2450 ####[facility] [address] [place], [address] Bilirubin [Mass/Vol] 0.53 mg/dL Normal 0.00-1.30 [facility] Comment on above: Performed By: #### L 500.4050, L100.0100, L501.2450 ####[facility] [address] [place], [address] BUN/CRE 12.8 RATIO Normal 10-20 [facility] Comment on above: Performed By: #### L 500.4050, L100.0100, L501.2450 ####[facility] [address] [place], [address] Calcium [Mass/Vol] 9.7 mg/dL Normal 7.6-11.[address] [facility] Comment on above: Performed By: #### L 500.4050, L100.0100, L501.2450 ####[facility] [address] [place], [address] Chloride [Moles/Vol] 98 mmol/L Normal 98-108 [facility] Comment on above: Performed By: #### L 500.4050, L100.0100, L501.2450 ####[facility] [address] [place], [address] CO2 [Moles/Vol] 25.6 mmol/L Normal 21.0-32.0 [facility] Comment on above: Performed By: #### L 500.4050, L100.0100, L501.2450 ####[facility] [address] [place], [address] Creatinine [Mass/Vol] 1.00 mg/dL Normal 0.70-1.20 [place] Comment on above: Performed By: #### L 500.4050, L100.0100, L501.2450 ####[facility] [address] [place], [address] ECRCL 125.39 ml/min Normal 50-250 [facility] Comment on above: Performed By: #### L 500.4050, L100.0100, L501.2450 ####[facility] [address] [place], [address] GAP 11 Normal 5-15 [facility] Comment on above: Performed By: #### L 500.4050, L100.0100, L501.2450 ####[facility] [address] [place], [address] GFR/1.73 sq M.predicted among non-blacks MDRD (S/P/Bld) [Vol rate/Area] 99 mL/min/{1.73_m2} Normal >60 [facility] Comment on above: Result Comment: mL/m in/1.73m2 CKD-EPI Creatinine Equation (2020) Performed By: #### L 500.4050, L100.0100, L501.2450 ####[facility] [address] [place], [address] Globulin (S) [Mass/Vol] 3.3 g/dL Normal 2.2-4.2 [facility] Comment on above: Performed By: #### L 500.4050, L100.0100, L501.2450 ####[facility] [address] [place], [address] Glucose [Mass/Vol] 178 mg/dL High 70-[address] [facility] Comment on above: Performed By: #### L 500.4050, L100.0100, L501.2450 ####[facility] [address] [place], [address] Potassium [Moles/Vol] 4.1 mmol/L Normal 3.3-5.1 [place] Comment on above: Performed By: #### L 500.4050, L100.0100, L501.2450 ####[facility] [address] [place], [address] Sodium [Moles/Vol] 135 mmol/L Normal 133-[address] [facility] Comment on above: Performed By: #### L 500.4050, L100.0100, L501.2450 ####[facility] [address] [place], [address] T PROT 8.2 g/dL Normal 5.9-8.4 [facility] Comment on above: Performed By: #### L 500.4050, L100.0100, L501.2450 ####[facility] [address] [place], [address] Urea nitrogen [Mass/Vol] 13 mg/dL Normal 4-19 [facility] Comment on above: Performed By: #### L 500.4050, L100.0100, L501.2450 ####[facility] [address] [place], [address] Discharge Instructionon 05-2 Discharge Instruction [facility] Medical Records Department [address] [place] [address] Instructions for Home/Discharge Instructions 08/03/24 1337 MR#: [id number] Acct: [id number] Name: SESAR SIMMONSTHOMAS Coelho Rep #: [id number] : 1985 38 From: Virginie Bolden MD PCP: Care Physician,No Primary Status:REG [facility] Discharge Instructions Diet Discharge Diet: Light diet - advance as tolerated Activity Discharge Activity: May Not Drive (while taking narcotic pain medications.) May shower in (days): 1 Lifting Restrictions: no lifting >20 lbs x 2 wks, no strenuous exercise for 4 wks Dressing / Incision Call your doctor if your incision/area has: Continuous Slow Oozing, Sudden Increased Bleeding, Increased Pain/ Swelling, Increased Redness, Foul Smelling Discharge and Swelling at the incision site Call your doctor if you observe: Fever of 101 or Higher Remove Dressing in: 2 days Cleanse incision/area with: Soap Water Additional Dressing/Incision Instructions:: Steri-Strips will fall off in 7 to 10 days, if they do not fall off okay to remove after 10 days. Follow Up Care Please Follow Up With: Virginie Bolden MD When: Call the office for a follow-up appointment 2 weeks; after 5 PM and on the weekends call [phone] with any concerns. Test Results: Test results from this visit will be discussed in further detail at your follow-up appointment, if applicable. Discharge Plan Admission Attending Provider: Virginie Bolden Primary Care Provider: Care Physician,Sonal Primary Instructions Print Language: Zimbabwean Discharge Orders/Prescriptions Prescriptions: New oxycodone 5 mg capsule 5 mg PO Q6H PRN (Reason: pain) 3 Days Qty: 10 0RF Continued naproxen sodium 500 MG tablet, ER multiphase 24 hr 500 mg PO DAILY PRN PRN (Reason: Pain) Discontinued ciprofloxacin HCl 500 MG tablet 500 mg PO BID Qty: 14 0RF metronidazole 500 MG tablet 500 mg PO Q6H Qty: 40 0RF ciprofloxacin HCl 500 MG tablet 500 mg PO BID Qty: 12 0RF Referrals / Follow Up: Bandar Pemberton MD [Non-Staff] - Disposition Disposition (needs filled in before D/C Order can be placed): Home, Self Care 08/03/24 1340 Virginie Bolden MD CC: No Primary Care Physician Signed Normal [facility] ED Prov Noteon 08-03-2024 ED Prov Note ED PROVIDER NOTE [facility] EMERGENCY DEPARTMENT NAME: Raven Simmons AGE: 38 y.o. : 1985 VISIT DATE: 08/03/2024 CSN: [id number] PCP: No, Physician Chief Complaint Patient presents with Abdominal Pain Patient is a 38-year-old male with a past medical history of diverticulitis and perforated bowel who presents today for concern of abdominal pain. Patient states since midnight he has had epigastric abdominal pain. Patient has a previous history of diverticulitis but states this pain feels different. Patient endorses a generalized cramping sensation. Patient denies any lower abdominal pain, fevers, nausea, vomiting, bloody stools, dark or tarry stools, chest pain, shortness of breath, lightheadedness, dizziness or additional constitutional symptoms. Patient states he has been having nonbloody diarrhea for 5 years. Patient denies additional constitutional symptoms. Past Medical History: Diagnosis Date History of diverticulitis Perforation bowel (HCC) PT STATES HAD SMALL PERFORATION IN 2020 WITH DX OF DIVERTICULITIS History reviewed. No pertinent surgical history. History reviewed. No pertinent family history. Social History [1] No current outpatient medications on file prior to encounter. Allergies[2] Review of Systems Constitutional: Negative for chills and fever. Eyes: Negative for pain. Respiratory: Negative for cough, chest tightness and shortness of breath. Cardiovascular: Negative for chest pain and palpitations. Gastrointestinal: Positive for abdominal pain and diarrhea. Negative for nausea and vomiting. Genitourinary: Negative for flank pain. Musculoskeletal: Negative for arthralgias and myalgias. Skin: Negative for rash. Neurological: Negative for dizziness, syncope, light-headedness and headaches. Psychiatric/Behavioral: Negative for agitation. All other systems reviewed and are negative. No data found. Physical Exam Vitals and nursing note reviewed. Constitutional: Appearance: Normal appearance. HENT: Head: Normocephalic. Eyes: Pupils: Pupils are equal, round, and reactive to light. Cardiovascular: Rate and Rhythm: Normal rate and regular rhythm. Pulses: Normal pulses. Heart sounds: Normal heart sounds. Musculoskeletal: Cervical back: Normal range of motion. Pulmonary: Effort: Pulmonary effort is normal. Breath sounds: Normal breath sounds. Abdominal: General: Abdomen is flat. Bowel sounds are normal. Palpations: Abdomen is soft. Tenderness: There is abdominal tenderness in the epigastric area. There is no right CVA tenderness, left CVA tenderness, guarding or rebound. Negative signs include Diaz's sign, Rovsing's sign, McBurney's sign, psoas sign and obturator sign. Hernia: No hernia is present. Skin: General: Skin is warm. Capillary Refill: Capillary refill takes less than 2 seconds. Neurological: General: No focal deficit present. Mental Status: He is alert. Psychiatric: Mood and Affect: Mood normal. Laboratory & Radiographic Imaging (if done): Results for orders placed or performed during the hospital encounter of 08/03/24 POC CBC and Differential Result Value Ref Range WBC 9.81 4.50 - 11.00 K/mcL RBC 5.07 4.50 - 5.90 M/mcL Hemoglobin 15.8 13.5 - 17.5 g/dL Hematocrit 44.5 41.0 - 53.0 % MCV 87.8 80.0 - 100.0 fL MCH 31.2 26.0 - 34.0 pg MCHC 35.5 31.0 - 37.0 g/dL RDW - CV 12.0 11.6 - 14.8 % Platelets 278 150 - 400 K/mcL MPV 9.8 9.4 - 12.4 fL Neutrophils 68.3 % Lymphocytes 18.1 % Monocytes 10.0 % Eosinophils 2.9 % Basophils 0.3 % IG Percent 0.40 % Neutrophils Abs 6.70 1.70 - 7.00 K/mcL Lymphocytes Abs 1.78 0.90 - 4.00 K/mcL Monocytes Abs 0.98 (H) 0.30 - 0.90 K/mcL Eosinophils Abs 0.28 0.00 - 0.50 K/mcL Basophils Abs 0.03 0.00 - 0.30 K/mcL IG Absolute 0.04 0.00 - 0.30 K/mcL POC Basic Metabolic Panel Result Value Ref Range Glucose 113 (H) 65 - 99 mg/dL BUN 15 8 - 25 mg/dL Creatinine 0.83 0.50 - 1.30 mg/dL GFR 116 >=60 mL/min/1.73 m2 Sodium 140 135 - 145 mmol/L Potassium 4.0 3.5 - 5.1 mmol/L Chloride 104 98 - 108 mmol/L TCO2 28 21 - 32 mmol/L Ionized Calcium 4.9 4.5 - 5.3 mg/dL POC Urinalysis Dipstick, Auto Result Value Ref Range Spec Grav, UA 1.025 1.005 - 1.025 pH, UA 6.0 5.0 - 7.0 Protein, UA Negative Negative mg/dL Glucose, UA Negative Negative mg/dL Ketones, UA Negative Negative mg/dL Bilirubin, UA Negative Negative Urobilinogen, UA 0.2 <2.0 mg/dL Blood, UA Negative Negative Nitrite, UA Negative Negative Leukocyte Esterase, UA Negative Negative POC Liver Panel Plus Result Value Ref Range Albumin 4.2 3.2 - 5.2 g/dL Alkaline Phosphatase 42 40 - 140 U/L ALT (SGPT) 105 (H) 0 - 40 U/L AST (SGOT) 73 (H) 0 - 45 U/L Bilirubin, Total 0.7 0.0 - 1.3 mg/dL Total Protein 7.7 6.0 - 8.0 g/dL Amylase 67 25 - 115 U/L GGT 105 (H) 11 - 51 U/L CT Abdomen Pelvis With IV Contrast Only Final Result 1. Mild wall thi (more content not included)... Normal [facility] Emergency Department Summary on 08-03-2024 Emergency Department Summary [facility] Medical Records Department [address] [place] [address] Emergency Department Summary 08/03/24 MR#: [id number] Acct: [id number] Name: RAVEN SIMMONS Rep #: [id number] : 1985 38 From: Anthony Kwok MD PCP: Care Physician,No Primary Status:[facility] Location: [place] [address] HPI HPI - GI History of Present Illness Chief Complaint: Abd Pain Narrative Narrative: 38-year-old male past medical previous diverticulitis presents with abdominal pain that began around 10 PM yesterday evening, approximately 11 and half hours ago. He relates history that he has had diverticulitis flareups in the past, the last documented being in 2020, but occasionally he will get flares for which his primary used to have antibiotics prescribed to him. He states that he is feeling like he is having another flare with suprapubic to left lower quadrant pain. It is associated with nausea and vomiting but no fevers or chills. He denies any other exacerbating or alleviating factors. He had a normal bowel movement yesterday. He states that the pain was so severe that he went to an outside facility earlier this morning at 4 AM. He states that they found no evidence of diverticulitis, and that they prescribed him dicyclomine, and he went to go home and lay down but felt that his pain was getting worse. Frankly, he states that he would like a second opinion and is concerned because of the worsening abdominal pain that feels very similar to his previous diverticulitis. [facility] Medical History Ulcer Blood in stool Constipation Epigastric pain Rectal bleeding Diarrhea Home Medications ???Medication ???Instructions ???Recorded ???Last Taken ???Type ciprofloxacin HCl 500 mg tablet 500 mg PO BID #14 tabs 10/15/18 Rx metronidazole 500 mg tablet 500 mg PO Q6H #40 tabs 10/15/18 Rx naproxen sodium 500 mg 500 mg PO DAILY PRN PRN Pain 10/1710/17/18 History tablet,extended release 24 hr mphase ciprofloxacin HCl 500 mg tablet 500 mg PO BID #12 tabs 10/19/18 Un known Rx Allergy/AdvReac Type Severity Reaction Status Date / Time ciprofloxacin AdvReac Severe Nausea Verified 08/03/24 09:19 Family History Mother Hypertension Father Thyroid cancer Surgical History Hx of colonoscopy History of esophagogastroduodenoscopy (EGD) Hx of vasectomy Social History Smoking Status: Former smoker alcohol intake: current alcohol intake frequency: a few times a week Alcohol type: beer substance use type: does not use caffeine: Yes what type of physical activity do you participate in: walking, running and weight training frequency: daily seatbelt use: always ROS ROS ED ROS Narrative Review of systems positive for suprapubic to bilateral lower quadrant pain, left greater than right. Positive nausea and vomiting. No fevers or chills. No dysuria or hematuria. Normal bowel movement yesterday. No diarrhea. EXAM Physical Exam Narrative Exam Narrative: Afebrile. Vital signs noted. Nontoxic-appearing. Cardiovascular examination reveals a regular rate and rhythm. Lungs are clear to auscultation bilaterally. Abdominal examination reveals mild tenderness palpation in the left lower quadrant to suprapubic area. Positive bowel sounds. Questionable rebound tenderness. Const Vital Signs: 08/03/24 09:16 08/03/24 11:04 08/03/24 11:15 Temperature 98.4 F 98.5 F 98.5 F Temperature Source Oral Oral Pulse Rate 77 77 74 Respiratory Rate 16 16 18 Blood Pressure 139/94 H 130/85 H 130/85 H Blood Pressure Mean 109 100 100 Blood Pressure Source Monitor Blood Pressure Position Semi-Fowlers Blood Pressure Location Right Arm Pulse Ox 98 98 98 Oxygen Delivery Method Room Air Room Air 08/03/24 12:11 Temperature 98.5 F Temperature Source Pulse Rate 74 Respiratory Rate 18 Blood Pressure 130/85 H Blood Pressure Mean Blood Pressure Source Blood Pressure Position Blood Pressure Location Pulse Ox 98 Oxygen Delivery Method MDM MDM MDM Narrative Medical decision making narrative: The differential diagnosis includes but not limited to diverticulitis versus viscus perforation versus ureterolithiasis versus nonspecific abdominal pain. Given the patient's complaint of worsening pain, and tenderness, I discussed with him repeat laboratory work and imaging. As the patient drove here, I am unable to give him narcotic pain medications and he is agreeable to this as he states he is not concerned about receiving pain medication currently. I reviewed his laboratory work (more content not included)... Normal [facility] Eosinophil percentageOrdered By: Anthony Kwok on 08-03-2024 Eosinophils/100 WBC (Bld) 0.5 % 0-5 [facility] Erythrocyte distribution wid th ratioOrdered By: Anthony Kwok on 08-03-2024 Erythrocyte distribution width (RBC) [Ratio] 12.0 % 11.6-14.6 [facility] Erythrocyte distribution wid th standard deviationOrdered By: Anthony Kwok on 08-03-2024 Erythrocyte distribution width (RBC) [Ratio] 38.5 fl 35.1-43.9 [facility] Glomerular filtration rate ( GFR) estimation/1.73 sq m using serum, plasma, or whole bOrdered By: Anthony Kwok on 08-03-2024 GFR/1.73 sq M.predicted among non-blacks MDRD (S/P/Bld) [Vol rate/Area] 99 mL/min/{1.73_m2} >60 [facility] Comment on above: mL/min/1.73m2 CKD-EP I Creatinine Equation (2020) H AND P Exam - Surgicalon H&P Exam - Surgical [facility] Medical Records Department [address] [place] [address] H P Exam - Surgical 08/03/24 1058 MR#: [id number] Acct: [id number] Name: RAVEN SIMMONS Rep #: [id number] : 1985 38 From: Virginie Bolden MD PCP: Care Physician,No Primary Status:[facility] Location: [facility]2 HPI - General General Date of Service: 08/03/24 HPI Narrative RAVEN SIMMONS, is a 38 M who presents ER due to lower abdominal pain left and right. Patient initially went to [place] ER this morning due to pain at midnight. Patient was sent home even after CT abdomen pelvis was completed do not have the report or images. Patient's pain continued to get worse did come to our ER had a white blood count 15, will CT abdomen pelvis showed acute appendicitis. Patient was given IV Zosyn in the ER for acute appendicitis. [facility] Medical History Ulcer Blood in stool Constipation Epigastric pain Rectal bleeding Diarrhea Home Medications ???Medication ???Instructions ???Recorded ???Last Taken ???Type ciprofloxacin HCl 500 mg tablet 500 mg PO BID #14 tabs 10/15/18 Rx metronidazole 500 mg tablet 500 mg PO Q6H #40 tabs 10/15/18 Rx naproxen sodium 500 mg 500 mg PO DAILY PRN PRN Pain 10/1710/17/18 History tablet,extended release 24 hr mphase ciprofloxacin HCl 500 mg tablet 500 mg PO BID #12 tabs 10/19/18 Un known Rx Allergy/AdvReac Type Severity Reaction Status Date / Time ciprofloxacin AdvReac Severe Nausea Verified 08/03/24 09:19 Family History Mother Hypertension Father Thyroid cancer Surgical History Hx of colonoscopy History of esophagogastroduodenoscopy (EGD) Hx of vasectomy Social History Smoking Status: Former smoker alcohol intake: current alcohol intake frequency: a few times a week Alcohol type: beer substance use type: does not use caffeine: Yes what type of physical activity do you participate in: walking, running and weight training frequency: daily seatbelt use: always Vital Signs Vital Signs Vital Signs: 08/03/24 09:16 Temperature 98.4 F Temperature Source Oral Pulse Rate 77 Respiratory Rate 16 Blood Pressure 139/94 H Blood Pressure Mean 109 Pulse Ox 98 Oxygen Delivery Method Room Air Weight Weight: 234 lb 1.6 oz Body Mass Index (BMI) 32.6 Physical Exam Const alert, oriented x3 and no apparent distress HEENT normocephalic and head/scalp atraumatic Resp normal respiratory effort Cardio regular rate GI soft to palpation; Negative for non-distended Palpation: tender LLQ and RLQ; Negative for guarding Extremity no clubbing, cyanosis or edema Neuro CN's II-XII intact bilaterally Psych mental status grossly normal Results Lab / Micro Data 08/03/24 09:34 08/03/24 09:34 Labs: Laboratory Results - last 24 hr 08/03/24 09:34: WBC 15.0 H, RBC 5.10, Hgb 15.8, Hct 44.6, MCV 87.5, MCH 31.0, MCHC 35.4, RDW Std Deviation 38.5, RDW Coeff of Emelia 12.0, Plt Count 284, MPV 10.0, Immature Gran % (Auto) 0.500, Neut % (Auto) 89.0 H, Lymph % (Auto) 5.5 L, Tensas % (Auto) 4.2, Eos % (Auto) 0.5, Baso % (Auto) 0.3, A bsolute Neuts (auto) 13.4 H, Absolute Lymphs (auto) 0.83, Nucleated RBC % 0, Sodium 135, Potassium 4.1, Chloride 98, Carbon Dioxide 25.6, Anion Gap 11, BUN 13, Creatinine 1.00, Estim Creat Clear Calc 125.39, Est GFR (MDRD) Non-Af 99, BUN/Creatinine Ratio 12.8, Glucose 178 H, Calcium 9.7, Total Bilirubin 0.53, AST 70 H, ALT 119 H, Alkaline Phosphatase 48, Total Protein 8.2, Albumin 4.9, Globulin 3.3, Albumin/Globulin Ratio 1.5, Lipase 43 08/03/24 09:40: Urine Color Yellow, Urine Clarity Clear, Urine pH 6.0, Ur Specific Glendo 1.020, U rine Protein 15 H, Urine Glucose (UA) Normal, Urine Ketones Negative, Urine Occult Blood Negative, Urine Nitrite Negative, Urine Bilirubin Negative, Urine Urobilinogen Normal, Ur Leukocyte Esterase Negative, Urine RBC 0 SEEN, Urine WBC 0 SEEN, Ur Squamous Epith Cells 0 SEEN, Urine Bacteria 0 SEEN, Urine Mucus 0 SEEN Imaging Radiology Impression Abdomen/Pelvis CT 08/03/24 09:28 IMPRESSION: The appendix is dilated to 1.3 cm, with mild periappendiceal inflammation, image [id number]. findings are consistent with acute appendicitis. Critical results were discussed with Dr. Kwok by Dr. Danielle at the time of dictation. Reading [facility] Assessment Plan Assessment/Plan (1) Acute appendicitis: PLAN: Plan Did review CT abdomen pelvis. Agree with acute appendicitis 1. Discussed proc (more content not included)... Normal [facility] Hematocrit Auto (Bld) [Volum e fraction]Ordered By: Anthony Kwok on 08-03-2024 Hematocrit (Bld) [Volume fraction] 44.6 % 40-54 [facility] Hemoglobin measurementOrdere d By: Anthony Kwok on 08-03-2024 Hemoglobin (Bld) [Mass/Vol] 15.8 g/dL 13.0-16.5 [facility] Immature granulocytes/100 WB C Auto (Bld)Ordered By: Anthony Kwok on 08-03-2024 Immature granulocytes/100 WBC (Bld) 0.500 % 0.0-0.9 [facility] Comment on above: IG% - Immature Granu locytes (promyelocytes, myelocytes and metamyelocytes) > 1% indicates that a LEFT SHIFT is Present. Ketones Test strip Ql (U)Ord ered By: Anthony Kwok on 08-03-2024 Ketones Ql (U) Negative Negative [facility] Laboratory - Chemistry and C hemistry - challengeOrdered By: Anthony Kwok on 08-03-2024 AST [Catalytic activity/Vol] 70 U/L High <38 [facility] Lipaseon 08-03-2024 Lipase [Catalytic activity/Vol] 43 U/L Normal 13-75 [facility] Comment on above: Result Comment: Deuce viera note: LIPASE revised reference range effective 22. New Lipase methodology. Expected to produce lower values than the previous assay method. NEW Reference Range: 13 - 75 U/L Performed By: #### L 500.4050, L100.0100, L501.2450 ####[facility] [id number] [facility] [place] [place], [address] Lipase measurementOrdered By : Anthony Kwok on 08-03-2024 Lipase [Catalytic activity/Vol] 43 U/L 13-75 [facility] Comment on above: Please note:LIPASE r evised reference range effective 22. New Lipase methodology. Expected to produce lower values than the previous assay method. NEW Reference Range: 13 - 75 U/L MCV (mean corpuscular volume ) determinationOrdered By: Anthony Kwok on 08-03-2024 MCV (RBC) [Entitic vol] 87.5 fL 80-94 [facility] MR/POSTOP.ANEon 08-03-2024 MR/POSTOP.[facility] Medical Records Department [address] [place] [address] Anesthesia Postop Eval I 08/03/24 1346 MR#: [id number] Acct: [id number] Name: SESAR SIMMONSTHOMAS Coelho Rep #: [id number] : 1985 38 From: Virgie Riggins PCP: Care Physician,No Primary Status:[facility] Y Race: C Location: [place] [address] Anesthesia: Postop Eval I Current Vital Signs Temperature: 97.7 F Pulse Rate: 93 Blood Pressure: 127/64 Respiratory Rate: 16 Pulse Ox: 98 Oxygen Delivery Method: Room Air Assessment Airway patent: Yes Spontaneous unlabored respirations: Yes Mental status: Awake and Calm nausea: No Vomiting: No Anesthesia Complication: No Fluid Hydration Crystalloid volume administer (ml): 1,000 Total IV fluid infused: 1,000 Progress Note Anesthesia document: Postop Eval 1 completed: Yes 08/03/24 1347 Date Virgie Riggins Cosigner Signature: Date CC: Signed Normal [facility] MR/[id number] 08-03-2024 MR/POSTOPAN2 [facility] Medical Records Department [address] [place] [address] Anesthesia Postop Eval II 08/03/24 1431 MR#: [id number] Acct: [id number] Name: RAVEN SIMMONS Rep #: [id number] : 1985 38 From: Luis Carlos Valente MD PCP: Care Physician,No Primary Status:REG SDC Y Race: C Location: [place] [address] Anesthesia Postop Eval I Sum Postop Eval Completion status Anesthesia document: Postop Eval 1 completed: Yes Anesthesia Postop Eval I Summary Anesthesia Postop Eval I Summary: Anesthesia Postop Eval I: Assessment Summary Airway patent Yes 08/03/24 13:47 [email or web address] [email or web address] Spontaneous unlabored Yes 08/03/24 13:47 [email or web address] [email or web address] respirations Mental status Awake,Calm 08/03/24 13:47 [email or web address] nausea No 08/03/24 13:47 WOOL [email or web address].[email or web address] Vomiting No 08/03/24 13:47 [email or web address] [email or web address] Anesthesia Postop Eval I: Fluid Summary Crystalloid volume administer 1,000 08/03/24 13:47 [email or web address] [email or web address] (ml) Colloids volume administered ( ml) Blood Product volume administered (ml) Total IV fluid infused 1,000 08/03/24 13:47 [email or web address] [email or web address] Anesthesia Postop Eval I: Summary Notes Anesthesia Complication No 08/03/24 13:47 [email or web address] Anesthesia Complication Comment: Post-operative progress note Anesthesia: Postop Eval II Evaluation Mental status: Awake Pain Level: 2 nausea: No Vomiting: No 08/03/24 1431 Date Luis Carlos Valente MD Cosigner Signature: Date CC: Signed Normal [facility] Mean corpuscular hemoglobin (MCH) determinationOrdered By: Anthony Kwok on 08-03-2024 MCH (RBC) [Entitic mass] 31.0 pg 27.0-32.0 [facility] Mean corpuscular hemoglobin concentration (MCHC) determinationOrdered By: Anthony Kwok on 08-03-2024 MCHC (RBC) [Mass/Vol] 35.4 g/dL 32-36 [place] Mean platelet volume determi nationOrdered By: Anthony Kwok on 08-03-2024 Platelet mean volume (Bld) [Entitic vol] 10.0 fL 6.2-12.0 [facility] Microscopic analysis of urin e for red blood cells (RBC)Ordered By: Anthony Kwok on 08-03-2024 Microscopic analysis of urine for red blood cells (RBC) 0 SEEN /hpf 0-5 [facility] Monocyte percentageOrdered B y: Anthony Kwok on 08-03-2024 Monocytes/100 WBC (Bld) 4.2 % 0-10 [facility] Mucus LM Ql (Urine sed)Order ed By: Anthony Kwok on 08-03-2024 Mucus Ql (Urine sed) 0 SEEN /hpf [place] Neutrophil percentageOrdered By: Anthony Kwok on 08-03-2024 Neutrophils/100 WBC (Bld) 89.0 % High 47-70 [facility] Nitrite Test strip Ql (U)Ord ered By: Anthony Kwok on 08-03-2024 Nitrite Ql (U) Negative Negative [facility] Nucleated red blood cell per centageOrdered By: Anthony Kwok on 08-03-2024 Nucleated RBC/100 WBC (Bld) [Ratio] 0 % 0-5 [facility] Operative Reporton Operative Report [facility] Medical Records Department [address] [place] [address] Operative Report 08/03/24 1335 MR#: [id number] Acct: [id number] Name: RAVEN SIMMONS Rep #: [id number] : 1985 38 From: Virginie Bolden MD PCP: Care Physician,No Primary Status:[facility] Location: [place] [address] Operative Report (Standard) Operative Information Date of Procedure: 08/03/24 Pre-Operative Diagnosis: Acute appendicitis Post-Operative Diagnosis: Same Surgery/Procedure Performed: 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 [employer] Technical Assistant: Shy Hdz Tasks completed by cardiology physician assistant: Opening closing Type of Anesthesia: General/Supplemental RN Documented Start/Stop Times: Operation Date: 08/03/24 11:30 Case Time Into Pre-Op 08/03/24 11:31 Anesthesia Start 08/03/24 12:42 Into Room 08/03/24 12:42 Out of Pre-Op 08/03/24 12:43 Procedure Start 08/03/24 13:04 Procedure End 08/03/24 13:36 Anesthesia End 08/03/24 13:43 Out of Room 08/03/24 13:43 Into Recovery 08/03/24 13:46 Procedure Start Time: 13:04 Procedure Stop Time: 13:36 Select all DRAINS/GRAFTS/IMPLANTS that apply: None Special Medications: Zosyn 3.375 g IV x 1 for acute appendicitis in the ER Estimated Blood Loss: < 10 cc Specimen collected: Yes Description of specimen(s) removed: Appendix Description of surgery: Indications: 38-year-old male presented to the ER with new right lower quadrant pain at midnight/this morning. On workup he was found to have acute appendicitis on CT and a leukocytosis of 15. Patient was started on antibiotics in the ER for acute appendicitis-Zosyn 3.375 g IV x 1 Description of the procedure: The patient was placed on operating table in supine position. General anesthesia was induced. A timeout was completed verifying correct patient, procedure, position and special equipment prior to beginning procedure. Abdomen was prepped and draped in usual sterile fashion. Incision was made in the natural skin line above the umbilicus with a 15 blade scalpel. The fascia was elevated and incised. Entry into the peritoneum was confirmed visually and no bowel was noted in the vicinity of the incision. The Allen trocar was placed under direct vision. Abdomen insufflated with a pressure of 12-15 mmHg. Patient tolerated insertion well. The scope was inserted and the abdomen inspected. No injuries from initial trocar placement were noted. Minimal amount of fluid was seen in the right lower quadrant. An direct visualization 2 -5 mm trocars were placed one above the symphysis pubis and below the hairline and one in the left lower quadrant lateral to the rectus muscle. Care is taken to avoid injury to the bladder and inferior epigastric vessels. The table was placed in Trendelenburg position with the right side elevated. The appendix was grasped with atraumatic grasper and elevated. It was noted to be inflamed. A window was developed in the mesoappendix at the point between the base of the appendix and the cecum. An endoscopic 45 mm linear cutting stapler blue load was then used to divide and staple the base of the appendix. Enseal was used to divide the mesoappendix. The appendix was withdrawn into the Allen trocar after being placed endoscopically retrieval bag. Appendix was sent to pathology. The appendiceal stump was then irrigated and hemostasis was assured. Fluid was suctioned no other pathology was identified. Secondary trochars were removed under direct visualization. No bleeding was noted trocar sites. The laparoscope withdrawn and the umbilical trocar removed. The abdomen was allowed to collapse. Local anesthesia of 30 mL of 0.25% Marcaine was used at the incision sites. The umbilical trocar site was closed with the [id number] 0 Vicryl suture. The skin was closed using sutures of 4-0 Monocryl and Steri-Strips. The patient was extubated. The patient tolerated the procedure well and was taken to the postanesthesia care unit in satisfactory condition. Surgical Findings: See operative report Complications Complications: No 08/03/24 2109 Cosigner Signature (if applicable): CC: Dr. Virginie Bolden MD; No Primary Care Physician Signed Normal [facility] POC BASIC METABOLIC PANEL - [facility] 08-03-2024 Chloride [Moles/Vol] 104 mmol/L Normal 98-108 [facility] Comment on above: Order Comment: [facility] has implemented the eGFR calculation approach that does not have a coefficient for race that conforms to the NKF-ASN Task Force Recommendations. CO2 [Moles/Vol] 28 mmol/L Normal 21-32 [facility] Comment on above: Order Comment: [facility] has implemented the eGFR calculation approach that does not have a coefficient for race that conforms to the NKF-ASN Task Force Recommendations. Creatinine [Mass/Vol] 0.83 mg/dL Normal 0.50-1.30 [facility] Comment on above: Order Comment: [facility] has implemented the eGFR calculation approach that does not have a coefficient for race that conforms to the NKF-ASN Task Force Recommendations. Glucose [Mass/Vol] 113 mg/dL High 65-99 [facility] Comment on above: Order Comment: [facility] has implemented the eGFR calculation approach that does not have a coefficient for race that conforms to the NKF-ASN Task Force Recommendations. POC GFR 116 mL/min/1.73 m2 Normal >=60 [facility] Comment on above: Order Comment: [facility] has implemented the eGFR calculation approach that does not have a coefficient for race that conforms to the NKF-ASN Task Force Recommendations. Result Comment: Lisest mated GFR was calculated using the 2020 CKD-EPI creatinine equation. POC IONIZED CALCIUM 4.9 mg/dL Normal 4.5-5.3 [facility] Comment on above: Order Comment: [facility] has implemented the eGFR calculation approach that does not have a coefficient for race that conforms to the NKF-ASN Task Force Recommendations. Potassium [Moles/Vol] 4.0 mmol/L Normal 3.5-5.1 [facility] Comment on above: Order Comment: [facility] has implemented the eGFR calculation approach that does not have a coefficient for race that conforms to the NKF-ASN Task Force Recommendations. Sodium [Moles/Vol] 140 mmol/L Normal 135-145 [facility] Comment on above: Order Comment: [facility] has implemented the eGFR calculation approach that does not have a coefficient for race that conforms to the NKF-ASN Task Force Recommendations. Urea nitrogen [Mass/Vol] 15 mg/dL Normal 8-25 [facility] Comment on above: Order Comment: [facility] has implemented the eGFR calculation approach that does not have a coefficient for race that conforms to the NKF-ASN Task Force Recommendations. POC CBC AND DIFFERENTIALon 0 - BASOPHILS ABSOLUTE COUNT 0.03 K/mcL Normal 0.00-0.30 [facility] Basophils/100 WBC (Bld) 0.3 % Normal [facility] Eosinophils (Bld) [#/Vol] 0.28 10*3/uL Normal 0.00-0.50 [facility] Eosinophils/100 WBC (Bld) 2.9 % Normal [facility] Erythrocyte distribution width (RBC) [Ratio] 12.0 % Normal 11.6-14.8 [facility] Hematocrit (Bld) [Volume fraction] 44.5 % Normal 41.0-53.0 [facility] Hemoglobin (Bld) [Mass/Vol] 15.8 g/dL Normal 13.5-17.5 [facility] IG ABSOLUTE 0.04 K/mcL Normal 0.00-0.30 [facility] IG PERCENT 0.40 % Normal [facility] Comment on above: Result Comment: The IG parameter is the percentage of metamyelocytes, myelocytes and promyelocytes. An immature granulocyte count (IG) of 1% or more suggests the possibility of infection, an IG count of 3% is very likely related to an infection. Lymphocytes (Bld) [#/Vol] 1.78 10*3/uL Normal 0.90-4.00 [facility] Lymphocytes/100 WBC (Bld) 18.1 % Normal [facility] MCH (RBC) [Entitic mass] 31.2 pg Normal 26.0-34.0 [facility] MCV (RBC) [Entitic vol] 87.8 fL Normal 80.0-100.0 [facility] MEAN CORPUSCULAR HEMOGLOBIN CONC 35.5 g/dL Normal 31.0-37.0 [facility] Monocytes (Bld) [#/Vol] 0.98 10*3/uL High 0.30-0.90 [facility] Monocytes/100 WBC (Bld) 10.0 % Normal [facility] NEUTROPHILS ABSOLUTE COUNT 6.70 K/mcL Normal 1.70-7.00 [facility] Neutrophils/100 WBC (Bld) 68.3 % Normal [facility] Platelet mean volume (Bld) [Entitic vol] 9.8 fL Normal 9.4-12.4 [facility] Platelets (Bld) [#/Vol] 278 10*3/uL Normal 150-400 [facility] RBC (Bld) [#/Vol] 5.07 10*6/uL Normal 4.50-5.90 [facility] WBC (Bld) [#/Vol] 9.81 10*3/uL Normal 4.50-11.00 [facility] POC LIVER PANEL PLUS [facility] 08-03-2024 Albumin [Mass/Vol] 4.2 g/dL Normal 3.2-5.2 [facility] ALP [Catalytic activity/Vol] 42 U/L Normal 40-140 [facility] ALT [Catalytic activity/Vol] 105 U/L High 0-40 [facility] Amylase [Catalytic activity/Vol] 67 U/L Normal 25-115 [facility] Amylase [Catalytic activity/Vol] 105 U/L High 11-51 [facility] AST [Catalytic activity/Vol] 73 U/L High 0-45 [facility] Bilirubin [Mass/Vol] 0.7 mg/dL Normal 0.0-1.3 [facility] Protein [Mass/Vol] 7.7 g/dL Normal 6.0-8.0 [facility] POC URINALYSIS DIPSTICK,AUTO - [facility] 08-03-2024 POC BILIRUBIN, URINE Negative Normal Negative [facility] POC BLOOD, URINE Negative Normal Negative [facility] POC GLUCOSE, URINE Negative Normal Negative [facility] POC KETONES, URINE Negative Normal Negative [facility] LEUKOCYTE ESTERASE, URINE Negative Normal Negative [facility] NITRITE, URINE Negative Normal Negative [facility] PH, URINE 6.0 Normal 5.0-7.0 [facility] PROTEIN, URINE Negative Normal Negative [facility] SPECIFIC GRAVITY 1.025 Normal 1.005-1 .02 5 [facility] UROBILINOGEN 0.2 mg/dL Normal < 2.0 [facility] Platelet countOrdered By: Junior Kwok on 08-03-2024 Platelets (Bld) [#/Vol] 284 10*3/uL 150-450 [facility] Potassium measurement (mass/ volume)Ordered By: Anthony Kwok on 08-03-2024 Potassium (Unsp spec) [Mass/Vol] 4.1 mmol/L 3.3-5.1 [facility] Protein Test strip Ql (U)Ord ered By: Anthony Kwok on 08-03-2024 Protein Ql (U) 15 mg/dl High Negative [facility] RBC Auto (Bld) [#/Vol]Ordere d By: Anthony Kwok on 08-03-2024 RBC (Bld) [#/Vol] 5.10 10*6/uL 4.6-6.2 [facility] Serum creatinine measurement (mass/volume)Ordered By: Anthony Kwok on 08-03-2024 Creatinine [Mass/Vol] 1.00 mg/dL 0.70-1.20 [place] Serum globulin measurementOr dered By: Anthony Kwok on 08-03-2024 Globulin (S) [Mass/Vol] 3.3 g/dL 2.2-4.2 [facility] Serum glucose measurement (m ass/volume)Ordered By: Anthony Kwok on 08-03-2024 Glucose [Mass/Vol] 178 mg/dL High 70-[address] [facility] Serum or plasma alanine manzo otransferase (ALT) measurementOrdered By: Anthony Kwok on 08-03-2024 ALT [Catalytic activity/Vol] 119 U/L High <47 [facility] Serum or plasma albumin eden urement (mass/volume)Ordered By: Anthony Kwok on 08-03-2024 Albumin [Mass/Vol] 4.9 g/dL 3.5-5.[address] [facility] Serum or plasma albumin/glob ulin mass ratioOrdered By: Anthony Kwok on 08-03-2024 Albumin/Globulin [Mass ratio] 1.5 {ratio} 0.9-2.4 [facility] Serum or plasma alkaline yamile sphatase measurementOrdered By: Anthony Kwok on 08-03-2024 ALP [Catalytic activity/Vol] 48 U/L 40-129 [facility] Serum or plasma calcium eden urement (mass/volume)Ordered By: Anthony Kwok on 08-03-2024 Calcium [Mass/Vol] 9.7 mg/dL 7.6-11.[address] [facility] Serum or plasma urea nitroge n measurement (mass/volume)Ordered By: Anthony Kwok on 08-03-2024 Urea nitrogen [Mass/Vol] 13 mg/dL 4-19 [facility] Sodium levelOrdered By: Anthony Kwok on 08-03-2024 Sodium [Moles/Vol] 135 mmol/L 133-[address] [facility] Squamous epithelial cells de tection in urine sediment by light microscopyOrdered By: Anthony Kwok on 08-03-2024 Epithelial cells.squamous LM Ql (Urine sed) 0 SEEN /hpf 0-5 [facility] Surgery Specimen Level IIIon 08-03-2024 Surgery Specimen Level III Patient Age/Sex Location Account Attending Physician RAVEN SIMMONS 38/M [facility] [id number] Dr. Virginie Bolden MD Specimen: [id number] Received: 08/03/24 Status: OLIVER Calix Num: [id number] Spec Type: APPENDIX Subm Dr: Dr. Virginie Bolden MD HEADER OPERATION: 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 appendectomy PRE-OP DIAGNOSIS: Acute appendicitis TISSUE SUBMITTED: A- Appendix MICROSCOPIC DIAGNOSIS A. Appendix, appendectomy: * Acute appendicitis, acute serositis. MICROSCOPIC DESCRIPTION Slides are reviewed. GROSS DESCRIPTION A. Received in formalin in a container labeled with the patient's name, date of , and appendix is a shaggy and disrupted 8.4 cm in length by 0.8 cm in diameter appendectomy specimen with mesoappendix measuring up to 1.0 cm wide. The serosa is ruiz-pink with a 1.5 x 0.6 cm serosal defect (inked green) situated 3.3 cm from the stapled resection margin (inked black). There is a moderate amount of white-ruiz exudate. Serial sections reveal that the defect exhibits a thin wall but does not grossly appear to be transmural. No perforations or fecaliths are identified. The lumen ranges from 0.2 to 0.3 cm filed with red, thick fluid. There is an average wall thickness of 0.[address] sections:A1. Cross-sections including margin en face and defectA2. Tip, bisected [facility] 08-03-2024 CPT:92124 Patient Age/Sex Location Account Attending Physician RAVEN SIMMONS 38/M [facility] [id number] Dr. Virginie Bolden MD Signed (signature on file) Dr. Kateryna Kilpatrick MD 08/08/24 0811 Normal [facility] Comment on above: Performed By: #### P SUIII #### [facility] [address] [place], [address] Total proteinOrdered By: Bree Kwok on 08-03-2024 Protein [Mass/Vol] 8.2 g/dL 5.9-8.[address] [facility] Urinalysis, Completeon 08-03 BACTERIA 0 SEEN Normal None Seen [facility] Comment on above: Order Comment: CLEAN CATCH Performed By: #### L 400.0001 ####[facility] [address] [place], [address] EPI,SQUAMOUS 0 SEEN Normal 0-5 [facility] Comment on above: Order Comment: CLEAN CATCH Performed By: #### L 400.0001 ####[facility] [address] [place], [address] Mucus Ql (Urine sed) 0 SEEN Normal [facility] Comment on above: Order Comment: CLEAN CATCH Performed By: #### L 400.0001 ####[facility] [address] [place], [address] RBC 0 SEEN Normal 0-5 [facility] Comment on above: Order Comment: CLEAN CATCH Performed By: #### L 400.0001 ####[facility] [address] [place], [address] WBC 0 SEEN Normal 0-5 [facility] Comment on above: Order Comment: CLEAN CATCH Performed By: #### L 400.0001 ####[facility] [address] [place], [address] Urine clarityOrdered By: Bree Kwok on 08-03-2024 Clarity (U) Clear Clear [facility] Urine color determinationOrd ered By: Anthony Kwok on 08-03-2024 Color (U) Yellow Yellow [facility] Urine glucose detectionOrder ed By: Anthony Kwok on 08-03-2024 Glucose Ql (U) Normal mg/dl Normal [facility] Urine leukocyte esterase det ection by dipstickOrdered By: Anthony Kwok on 08-03-2024 Leukocyte esterase Test strip Ql (U) Negative Negative [facility] Urine pHOrdered By: Anthony mullins on 08-03-2024 pH (U) 6.0 [pH] 5.0 - 8.0 [facility] Urine sediment bacteria coun t by microscopy (number/high power field)Ordered By: Anthony Kwok on 08-03-2024 Bacteria LM.HPF (Urine sed) [#/Area] 0 /[HPF] None Seen [facility] Urine specific gravity measu rementOrdered By: Anthony Kwok on 08-03-2024 Specific gravity (U) [Rel density] 1.020 1.002-1.03 0 [facility] Urine urobilinogen measureme ntOrdered By: Anthony Kwok on 08-03-2024 Urobilinogen Ql (U) Normal mg/dl Normal [place] White blood cell (WBC) count Ordered By: Anthony Kwok on 08-03-2024 WBC (Bld) [#/Vol] 15.0 10*3/uL High 4.4-11.0 [facility] White blood cell countOrdere d By: Anthony Kwok on 08-03-2024 White blood cell count 0 SEEN /hpf 0-5 [facility] ED NOTEon 04-27-2024 ED NOTE HNO ID: [id number] Author: SIMONA CARREON RN Service: ? Author Type: Registered Nurse Type: ED Notes Filed: 04/27/2024 17:40 Note Text: D/c instructions reviewed with pt who verbalized understanding. Pt's vss and left ED ual and in stable condition Normal [facility] ED NOTE HNO ID: [id number] Author: SIMONA CARREON RN Service: ? Author Type: Registered Nurse Type: ED Notes Filed: 04/27/2024 15:00 Note Text: Pt comes to ED c/o R eye irritation and foreign body sensation. Pt was remodeling bathroom today and busted up a glass shower door. Pt is unsure if glass got in his eye. He states that when he pulls his top lid away from the eye the irritation improves. Pt has also flushed eye with water without relief. Eye is irritated,red, excessive tearing, painful, hazy vision and now has a throbbing JONES on the R side. This happened at 0600. Pt is AANDox3, vss. Will continue to monitor Normal [facility] ED PROV NOTEon 04-27-2024 ED PROV NOTE HNO ID: [id number] Author: TYLOR CHRISTOPHER MD Service: Emergency Medicine Author Type: Physician Type: ED Provider Notes Filed: 04/27/2024 17:43 Note Text: ED Provider Note Patient Name: Raven Simmons : 1985 SERVICE DATE: 04/27/24 History Patient presents with: Eye Pain Eye: Foreign body The patient is a 38-year-old male coming in complaint with right eye irritation and possible foreign body. Patient states he was remodeling a bathroom today. He went to take his hat off and felt something fall into his eye. He states he was demolishing a glass shower door so he is concerned that his glass that went into his eye. He states he feels as if there is a foreign body underneath of his eyelid. He is flushed it multiple times. Currently he just has a lot of irritation. Foreign body sensation is somewhat better in the sense that it does not seem to be moving underneath of his eyelid but still has irritation and sensation of pain with blinking. No change to vision. He is photosensitive. Endorses a throbbing headache. This happened about 6 AM this morning. Does notwear contacts. PAST MEDICAL HISTORY Diagnosis Date Diverticulitis PAST SURGICAL HISTORY Procedure Laterality Date VASECTOMY HX No family history on file. Social History Tobacco Use Smoking status: Never Smokeless tobacco: Current Vaping Use Vaping status: Never Used Substance and Sexual Activity Alcohol use: Yes Comment: a couple a day Drug use: Never Sexual activity: Not on file ALLERGIES Allergen Reactions Ciprofloxacin Vomiting Review of Systems Constitutional: Negative for activity change, appetite change, chills, fatigue and fever. HENT: Negative for congestion, ear pain, rhinorrhea and sore throat. Eyes: Positive for photophobia, pain and redness. Respiratory: Negative for cough and shortness of breath. Cardiovascular: Negative for chest pain and palpitations. Gastrointestinal: Negative for abdominal pain, diarrhea, nausea and vomiting. Genitourinary: Negative for dysuria, frequency and urgency. Musculoskeletal: Negative for arthralgias and myalgias. Skin: Negative for rash and wound. Neurological: Negative for dizziness and headaches. Psychiatric/Behavioral: Negative for self-injury and suicidal ideas. All other systems reviewed and are negative. Physical Exam Vitals [04/27/24 1445] BP Pulse Temp Temp src Resp SpO2 Weight Height 145/104 (!) 93 36.6 ?C (97.8 ?F) Temporal 20 99 % 97.5 kg (215 lb) -- Physical Exam Vitals and nursing note reviewed. Constitutional: General: He is not in acute distress. Appearance: He is well-developed. HENT: Head: Normocephalic and atraumatic. Nose: Nose normal. Mouth/Throat: Mouth: Mucous membranes are moist. Eyes: Pupils: Pupils are equal, round, and reactive to light. Comments: Evaluation of the right eye shows that the sclera is injected and irritated. Inversion of the eyelid shows no foreign bodies. No foreign bodies within the cornea itself. Fluorescein staining has a negative Roseann sign but does have a corneal abrasion between the 9 and 12 o'clock position that takes up most of the colored portion of the iris in this area. No hyphema or hypopyon. Cardiovascular: Rate and Rhythm: Normal rate and regular rhythm. Heart sounds: Normal heart sounds. Pulmonary: Effort: Pulmonary effort is normal. No respiratory distress. Breath sounds: Normal breath sounds. Abdominal: General: Bowel sounds are normal. There is no distension. Palpations: Abdomen is soft. Tenderness: There is no abdominal tenderness. Musculoskeletal: General: Normal range of motion. Cervical back: Normal range of motion and neck supple. Right lower leg: No edema. Left lower leg: No edema. Skin: General: Skin is warm and dry. Neurological: General: No focal deficit present. Mental Status: He is alert and oriented to person, place, and time. GCS: GCS eye subscore is 4. GCS verbal subscore is 5. GCS motor subscore is 6. Psychiatric: Mood and Affect: Mood normal. Behavior: Behavior normal. Diagnostic Testing ED Labs Ordered and Reviewed - No data to display Procedures ED Course / Clinical Impression Clinical Impressions as of 04/27/24 1740 Abrasion of right cornea, initial encounter MDM / Disposition / Plan The patient was seen and examined. History and physical were obtained. Based on history and physical, no diagnostic studies were obtained. Patient presents with eye irritation. Concern was for continued foreign body underneath the eyelid versus just a corneal abrasion. On exam I only see a corneal abrasion. Again inversion the eyelid shows no foreign bodies as well as there is no embedded foreign bodies. Patient made aware of results. 1 place patient with Romycin ointment prophylactically as this was a demolition job that caused the injury. We discussed ice as well as Tylenol for headache and (more content not included)... Normal [facility] Basophil percentageon 2021 Cholesterol [Mass/Vol] 187 mg/dL <200 [facility] Work Phone: Comment on above: <200 mg/dL Desirable 200-240 mg/dL Borderline >240 mg/dL High Risk Glucose [Mass/Vol] 108 mg/dL 74-[address] [facility] Work Phone: Comment on above: Fasting Glucose resu lt from 100 to 125 mg/dL suggests IMPAIRED HOMEOSTASIS per A.D.A. criteria. Triglyceride [Mass/Vol] 426 mg/dL <199 [facility] Work Phone: Comment on above: The drugs N-Acetylcy steine and Metamizole may falsely depress this assay. TRIGLYCERIDE IS GREATER THAN 400 mg/dL. LDL RESULT IS INVALID AND WILL NOT BE REPORTED.Serum Triglycerides Reference Interval Normal <150 mg/dL Borderline high 150 - 199 mg/dL High 200 - 499 mg/dL Very High > or = 500 mg/dL Serum or plasma cholesterol in HDL measurement (mass/volume)on 09-08-2021 Cholesterol in HDL [Mass/Vol] 34 mg/dL >40 [facility] Work Phone: Comment on above: The drugs N-Acetylcy steine and Metamizole may falsely depress this assay. Reference Range HDL <40 mg/dL Low HDL Cholesterol HDL >or= 60 mg/dL High HDL Cholesterol Serum or plasma cholesterol in VLDL measurement (mass/volume)on 09-08-2021 Cholesterol in VLDL [Mass/Vol] [facility] Work Phone: Comment on above: Test not performed Serum or plasma low density lipoprotein (LDL) cholesterol measurement (mass/volume)on 09-08-2021 Cholesterol in LDL [Mass/Vol] [facility] Work Phone: Comment on above: Test not performed ED NOTEon 12-05-2020 ED NOTE HNO ID: [id number] Author: Daniela Rudolhp RN Service: Emergency Medicine Author Type: Registered Nurse Type: ED Notes Filed: 12/05/2020 1:08 PM Note Text: Patient is alert, talkative, no distress. Instructed to pickle solution maker Gel at pharmacy. Increase fluids, use Tylenol and rest. Patient instructed to follow up with PCP, return with any new, worsening, or recurrent symptoms. Verbalizes understanding of all instructions. Ambulates to [facility], no distress. Normal [facility] ED NOTE HNO ID: [id number] Author: Daniela Rudolph RN Service: Emergency Medicine Author Type: Registered Nurse Type: ED Notes Filed: 12/05/2020 12:53 PM Note Text: Patient informed: the name of medication, why we are giving it, possible side effects, what they may expect to feel, and was offered a chance to ask questions, prior to the administration of Decadron . Normal [facility] ED NOTE HNO ID: [id number] Author: Randa Valladares RN Service: Emergency Medicine Author Type: Registered Nurse Type: ED Notes Filed: 12/05/2020 12:26 PM Note Text: Pt's children had hand, foot and mouth, pt has had red,painful rash to hand, feet and around mouth. Pt is just wanting to make sure that it is not anything worse than hand, foot and mouth Normal [facility] ED PROV NOTEon 12-05-2020 ED PROV NOTE HNO ID: [id number] Author: Yanique Rees MD Service: Emergency Medicine Author Type: Physician Type: ED Provider Notes Filed: 12/05/2020 1:24 PM Note Text: ED Provider Note Patient Name: Raven Simmons SERVICE DATE: 12/05/20 History Patient presents with: Rash This patient is a 34-year-old male with a past medical history significant for diverticulitis who presents the emergency department for evaluation for rash on the arms and legs. Patient states his children had similar rash but they have since had resolution of the symptoms. Patient states his symptoms have been progressively getting worse now with lesions in the mouth still. He states the lesions are painful. He states he felt as though he has been having fevers but whenever he is checked his temperature he has not had any. The patient denies any other sick contacts, cough, chest pain, shortness of breath, abdominal pain or nausea and vomiting. History provided by: Patient and spouse japanese interpreter used: No PAST MEDICAL HISTORY Diagnosis Date - Diverticulitis PAST SURGICAL HISTORY Procedure Laterality Date - VASECTOMY HX No family history on file. Social History Tobacco Use - Smoking status: Never Smoker - Smokeless tobacco: Current User Vaping Use - Vaping Use: Never used Substance and Sexual Activity - Alcohol use: Yes Comment: a couple a day - Drug use: Never - Sexual activity: Not on file ALLERGIES Allergen Reactions - Ciprofloxacin Vomiting Review of Systems Constitutional: Negative for chills, fatigue and fever. HENT: Negative for ear discharge, ear pain, mouth sores, rhinorrhea, sinus pressure, sneezing, sore throat and tinnitus. Eyes: Negative for photophobia, discharge, itching and visual disturbance. Respiratory: Negative for cough, shortness of breath, wheezing and stridor. Cardiovascular: Negative for chest pain, palpitations and leg swelling. Gastrointestinal: Negative for abdominal distention, blood in stool, constipation and diarrhea. Endocrine: Negative for cold intolerance and heat intolerance. Genitourinary: Negative for dysuria, flank pain, frequency and hematuria. Musculoskeletal: Negative for back pain, gait problem and joint swelling. Skin: Positive for rash (Hands and legs as well as mouth). Negative for color change and pallor. Neurological: Negative for dizziness, syncope, weakness, light-headedness and headaches. Psychiatric/Behavioral: Negative for confusion, hallucinations, sleep disturbance and suicidal ideas. Physical Exam BP 148/95 Pulse 90 Temp (Src) 98.1 (Temporal Artery) Resp 18 Ht 5' 10 (1.78m) Wt 200 lb (90.7kg) SpO2 97% BMI 28.70 kg/(m2). Physical Exam Vitals and nursing note reviewed. HENT: Head: Normocephalic and atraumatic. Right Ear: External ear normal. Mouth/Throat: Mouth: Mucous membranes are moist. Pharynx: Oropharynx is clear. Comments: Patient with hip angina appreciated especially in the upper palate. Eyes: Pupils: Pupils are equal, round, and reactive to light. Neck: Trachea: No tracheal deviation. Cardiovascular: Rate and Rhythm: Normal rate and regular rhythm. Heart sounds: Normal heart sounds. Pulmonary: Effort: No respiratory distress. Breath sounds: Normal breath sounds. No stridor. No wheezing. Abdominal: General: There is no distension. Palpations: There is no mass. Tenderness: There is no abdominal tenderness. There is no guarding or rebound. Musculoskeletal: General: No tenderness or deformity. Cervical back: Normal range of motion. Lymphadenopathy: Cervical: No cervical adenopathy. Skin: General: Skin is warm and dry. Coloration: Skin is not pale. Findings: Rash (Patient with a macular rash with halos on the palms and soles of feet with edema.) present. Neurological: Mental Status: He is alert and oriented to person, place, and time. Psychiatric: Thought Content: Thought content normal. Judgment: Judgment normal. Diagnostic Testing ED Labs Ordered and Reviewed - No data to display Procedures ED Course / Clinical Impression Clinical Impressions as of Dec 05 1257 Herpangina Hand, foot and mouth disease MDM / Disposition / Plan Patient presenting for evaluation for painful rash on the palms and soles with herpangina appreciated on exam. Patient's presentation is concerning for kqkr-zomf-fth-mouth infection. Patient has no risk factors for syphilis. Discussed with patient could give a dose of Decadron but has no documented benefit. Educated patient would not benefit from antibiotics at this time. Discussed using ibuprofen or Tylenol at home as needed for pain. Patient stated unable to tolerate ibuprofen at home. Discussed using ibuprofen. Also discussed using a lidocaine cream to help with the pain on the palms and soles. Patient verbalized understanding of information given and agreed to plan. Was discharge (more content not included)... Normal [facility] CR Chest PA/LATon 04-28-2019 CR Chest PA/LAT Patient Name: RAVEN POMPA Diagnostic Radiology Exam Date/Time 04/28/2019 13:12:39 EST Exam CR Chest PA/LAT Ordering Physician WILSON MAHAN Accession Number [id number] CPT4 Codes 60760 () Reason For Exam chest pain Report CHEST X-RAY PA/LATERAL CLINICAL INDICATION: chest pain Frontal and lateral plain films of the chest were obtained. COMPARISON: 07/06/2018 FINDINGS: The cardiac silhouette is within normal limits. No focal consolidation is seen within the lungs. No pleural effusion or pneumothorax is identified. The bony structures of the chest are unremarkable as visualized for the patient's age. IMPRESSION: No acute cardiopulmonary disease. Report Dictated on Workstation: [id number] Final Dictated: 04/28/2019 1:14 pm Dictating Physician: MD LOVE JONATHAN R Signed Date and Time: 04/28/2019 1:14 pm Signed by: MD LOVE JONATHAN R Transcribed Date and Time: 04/28/2019 1:14 Normal [facility] XR CHEST STANDARD (2 VW)on 0 04-28-2019 Patient Name: RAVEN POMPA ---Diagnostic Radiology--- Exam Date/Time 04/28/2019 13:12:39 EST Exam CR Chest PA/LAT Ordering Physician WILSON MAHAN Accession Number [id number] CPT4 Codes 15367 () Reason For Exam chest pain Report CHEST X-RAY PA/LATERAL CLINICAL INDICATION: chest pain Frontal and lateral plain films of the chest were obtained. COMPARISON: 07/06/2018 FINDINGS: The cardiac silhouette is within normal limits. No focal consolidation is seen within the lungs. No pleural effusion or pneumothorax is identified. The bony structures of the chest are unremarkable as visualized for the patient's age. IMPRESSION: No acute cardiopulmonary disease. Report Dictated on Workstation: [id number] --- Final --- Dictated: 04/28/2019 1:14 pm Dictating Physician: MD LOVE JONATHAN R Signed Date and Time: 04/28/2019 1:14 pm Signed by: MD LOVE JONATHAN R Transcribed Date and Time: 04/28/2019 1:14 [facility] Work Phone: Jeremie, [facility] [place] Incoming Radiology Results From [facility] - 04/28/2019 1:16 PM EST Patient Name: RAVEN SIMMONS ---Diagnostic Radiology--- Exam Date/Time 04/28/2019 13:12:39 EST Exam CR Chest PA/LAT Ordering Physician [id number] PEREZ Accession Number [id number] CPT4 Codes 52445 () Reason For Exam chest pain Report CHEST X-RAY PA/LATERAL CLINICAL INDICATION: chest pain Frontal and lateral plain films of the chest were obtained. COMPARISON: 07/06/2018 FINDINGS: The cardiac silhouette is within normal limits. No focal consolidation is seen within the lungs. No pleural effusion or pneumothorax is identified. The bony structures of the chest are unremarkable as visualized for the patient's age. IMPRESSION: No acute cardiopulmonary disease. Report Dictated on Workstation: [id number] --- Final --- Dictated: 04/28/2019 1:14 pm Dictating Physician: MD LOVE JONATHAN R Signed Date and Time: 04/28/2019 1:14 pm Signed by: MD LOVE JONATHAN R Transcribed Date and Time: 04/28/2019 1:14 [facility] Work Phone: CT Abdomen Pelvis W Contrast on 01-13-2019 Patient Name: RAVEN POMPA ---CT--- Exam Date/Time 01/13/2019 21:11:[address] Abdomen/Pelvis w/ IV Contrast (IV Onl Ordering Physician DAMON KAUR, MARIETTA Hernández Accession Number [id number] CPT4 Codes 88190 (CT Abdomen/Pelvis w/ IV Contrast (IV Onl), Q9967 (CT ISOVUE 370MG/ML&[id number]&ML&1) Reason For Exam Lower ABD Pain - Diverticulitis Report CLINICAL INFORMATION: Lower abdominal and pelvic pain. History of diverticulitis. CT ABDOMEN AND PELVIS WITH INTRAVENOUS CONTRAST: Contrast: Isovue-370, [address] ABDOMEN: Volume acquisition CT images are obtained from diaphragm to iliac crests following intravenous contrast only with axial, coronal and sagittal 2-D reconstructions. Oral contrast was withheld by request of the ordering physician. The absence of oral contrast potentially reduces the sensitivity of the examination. The liver, spleen, pancreas and kidneys are unremarkable in size, configuration and density. There is no hydronephrosis. There is a mildly dilated gallbladder without calcified stones, wall thickening or adjacent inflammation which is nonspecific and most likely physiologic. No ascites or retroperitoneal lymphadenopathy is seen. No focal mass, fluid collection or inflammatory changes are identified. There is no abnormality of the abdominal aorta. CT PELVIS: Volume acquisition CT images were obtained from the iliac crests to the symphysis pubis following intravenous contrast only with axial, coronal and sagittal 2-D reconstructions.. There is a well distended unopacified urinary bladder without visible abnormality. There minimal scattered sigmoid colon diverticula. There is minimal hazy and streaky density in the pericolonic fat superior to the mid sigmoid colon consistent with mild or early acute diverticulitis. No focal fluid collection is identified to suggest diverticular abscess at this time. There is no obvious extraluminal gas. No focal mass or fluid collection is seen. There is no iliac or inguinal lymphadenopathy. No ascites or other inflammatory changes are identified. IMPRESSION: 1. Mild or early acute sigmoid diverticulitis. No evidence of diverticular abscess at this time. 2. Mild nonspecific gallbladder dilatation likely physiologic. 3. No evidence of mass, lymphadenopathy or other inflammatory changes. Report Dictated on --- Final --- Dictating Physician: MD CORNELIUS HARLAN Signed Date and Time: 01/13/2019 9:28 pm Signed by: MD CORNELIUS HARLAN Transcribed Date and Time: 01/13/2019 9:29 [facility] [place], [place], [facility] Incoming Radiology Results From [facility] - 01/13/2019 9:29 PM EDT Patient Name: RAVEN SIMMONS ---CT--- Exam Date/Time 01/13/2019 21:11:[address] Abdomen/Pelvis w/ IV Contrast (IV Onl Ordering Physician DAMON KAUR, MARIETTA Hernández Accession Number [id number] CPT4 Codes 96987 (CT Abdomen/Pelvis w/ IV Contrast (IV Onl), Q9967 (CT ISOVUE 370MG/[id number]) Reason For Exam Lower ABD Pain - Diverticulitis Report CLINICAL INFORMATION: Lower abdominal and pelvic pain. History of diverticulitis. CT ABDOMEN AND PELVIS WITH INTRAVENOUS CONTRAST: Contrast: Isovue-370, [address] ABDOMEN: Volume acquisition CT images are obtained from diaphragm to iliac crests following intravenous contrast only with axial, coronal and sagittal 2-D reconstructions. Oral contrast was withheld by request of the ordering physician. The absence of oral contrast potentially reduces the sensitivity of the examination. The liver, spleen, pancreas and kidneys are unremarkable in size, configuration and density. There is no hydronephrosis. There is a mildly dilated gallbladder without calcified stones, wall thickening or adjacent inflammation which is nonspecific and most likely physiologic. No ascites or retroperitoneal lymphadenopathy is seen. No focal mass, fluid collection or inflammatory changes are identified. There is no abnormality of the abdominal aorta. CT PELVIS: Volume acquisition CT images were obtained from the iliac crests to the symphysis pubis following intravenous contrast only with axial, coronal and sagittal 2-D reconstructions.. There is a well distended unopacified urinary bladder without visible abnormality. There minimal scattered sigmoid colon diverticula. There is minimal hazy and streaky density in the pericolonic fat superior to the mid sigmoid colon consistent with mild or early acute diverticulitis. No focal fluid collection is identified to suggest diverticular abscess at this time. There is no obvious extraluminal gas. No focal mass or fluid collection is seen. There is no iliac or inguinal lymphadenopathy. No ascites or other inflammatory changes are identified. IMPRESSION: 1. Mild or early acute sigmoid diverticulitis. No evidence of diverticular abscess at this time. 2. Mild nonspecific gallbladder dilatation likely physiologic. 3. No evidence of mass, lymphadenopathy or other inflammatory changes. Report Dictated on --- Final --- Dictating Physician: MD CORNELIUS HARLAN Signed Date and Time: 01/13/2019 9:28 pm Signed by: MD CORNELIUS HARLAN Transcribed Date and Time: 01/13/2019 9:29 [place], [place] CT Abdomen/Pelvis w/ Contras ton 01-13-2019 CT Abdomen/Pelvis w/ Contrast Patient Name: RAVEN SIMMONS CT Exam Date/Time 01/13/2019 21:11:[address] Abdomen/Pelvis w/ IV Contrast (IV Onl Ordering Physician DAMON KAUR AMY L Accession Number [id number] CPT4 Codes 42553 (CT Abdomen/Pelvis w/ IV Contrast (IV Onl), Q9967 (CT ISOVUE 370MG/[id number] and1) Reason For Exam Lower ABD Pain - Diverticulitis Report CLINICAL INFORMATION: Lower abdominal and pelvic pain. History of diverticulitis. CT ABDOMEN AND PELVIS WITH INTRAVENOUS CONTRAST: Contrast: Isovue-370, [address] ABDOMEN: Volume acquisition CT images are obtained from diaphragm to iliac crests following intravenous contrast only with axial, coronal and sagittal 2-D reconstructions. Oral contrast was withheld by request of the ordering physician. The absence of oral contrast potentially reduces the sensitivity of the examination. The liver, spleen, pancreas and kidneys are unremarkable in size, configuration and density. There is no hydronephrosis. There is a mildly dilated gallbladder without calcified stones, wall thickening or adjacent inflammation which is nonspecific and most likely physiologic. No ascites or retroperitoneal lymphadenopathy is seen. No focal mass, fluid collection or inflammatory changes are identified. There is no abnormality of the abdominal aorta. CT PELVIS: Volume acquisition CT images were obtained from the iliac crests to the symphysis pubis following intravenous contrast only with axial, coronal and sagittal 2-D reconstructions.. There is a well distended unopacified urinary bladder without visible abnormality. There minimal scattered sigmoid colon diverticula. There is minimal hazy and streaky density in the pericolonic fat superior to the mid sigmoid colon consistent with mild or early acute diverticulitis. No focal fluid collection is identified to suggest diverticular abscess at this time. There is no obvious extraluminal gas. No focal mass or fluid collection is seen. There is no iliac or inguinal lymphadenopathy. No ascites or other inflammatory changes are identified. IMPRESSION: 1. Mild or early acute sigmoid diverticulitis. No evidence of diverticular abscess at this time. 2. Mild nonspecific gallbladder dilatation likely physiologic. 3. No evidence of mass, lymphadenopathy or other inflammatory changes. Report Dictated on Final Dictating Physician: MD CORNELIUS HARLAN Signed Date and Time: 01/13/2019 9:28 pm Signed by: MD CORNELIUS HARLAN Transcribed Date and Time: 01/13/2019 9:29 Normal [facility] Comp Metabolic Panelon 01-13 ALP [Catalytic activity/Vol] 35 U/L Low 38-126 [facility] Comment on above: Performed By: #### C MP3, HEMDF, LACT3, LIPA4 #### [facility] [address] [place] [address] ALT [Catalytic activity/Vol] 140 U/L High 13-69 [facility] Comment on above: Performed By: #### C MP3, HEMDF, LACT3, LIPA4 #### [facility] [address] [place] [address] Anion gap [Moles/Vol] 9 Normal [facility] Comment on above: Performed By: #### C MP3, HEMDF, LACT3, LIPA4 #### [facility] [address] [place] [address] AST [Catalytic activity/Vol] 62 U/L High 15-46 [facility] Comment on above: Performed By: #### C MP3, HEMDF, LACT3, LIPA4 #### [facility] [address] [place] [address] Bilirubin [Mass/Vol] 0.7 mg/dL Normal 0.2-1.3 [facility] Comment on above: Performed By: #### C MP3, HEMDF, LACT3, LIPA4 #### [facility] [address] [place] [address] Calcium [Mass/Vol] 9.0 mg/dL Normal 8.4-10.4 [facility] Comment on above: Performed By: #### C MP3, HEMDF, LACT3, LIPA4 #### [facility] [address] [place] [address] CO2 [Moles/Vol] 23 mmol/L Normal 22-30 [facility] Comment on above: Performed By: #### C MP3, HEMDF, LACT3, LIPA4 #### [facility] [address] [place] [address] Glucose [Mass/Vol] 84 mg/dL Normal 70-100 [facility] Comment on above: Performed By: #### C MP3, HEMDF, LACT3, LIPA4 #### [facility] [address] [place] [address] Protein [Mass/Vol] 7.6 g/dL Normal 6.3-8.2 [facility] Comment on above: Performed By: #### C MP3, HEMDF, LACT3, LIPA4 #### [facility] [address] [place] [address] Urea nitrogen [Mass/Vol] 19 mg/dL Normal 7-20 [facility] Comment on above: Performed By: #### C MP3, HEMDF, LACT3, LIPA4 #### [facility] [address] [place] [address] Creatinine [Mass/Vol] 0.93 mg/dL Normal 0.52-1.25 [facility] Comment on above: Performed By: #### C MP3, HEMDF, LACT3, LIPA4 #### [facility] [address] [place] [address] GFR/1.73 sq M predicted among blacks MDRD (S/P/Bld) [Vol rate/Area] mL/min/{1.73_m2} Normal >60 [facility] Comment on above: Performed By: #### C MP3, HEMDF, LACT3, LIPA4 #### [facility] [address] [place] [address] GFR/1.73 sq M predicted among non-blacks MDRD (S/P/Bld) [Vol rate/Area] mL/min/{1.73_m2} Normal >60 [facility] Comment on above: Result Comment: Sour ce- MDRD equation with creatinine calibration to IDMS(NKDEP) eGFR not recommended for drug dose adjustment Performed By: #### C MP3, HEMDF, LACT3, LIPA4 #### [facility] [address] [place] [address] Albumin [Mass/Vol] 4.6 g/dL Normal 3.5-5.0 [facility] Comment on above: Performed By: #### C MP3, HEMDF, LACT3, LIPA4 #### [facility] [address] [place] [address] Chloride [Moles/Vol] 104 mmol/L Normal 98-107 [facility] Comment on above: Performed By: #### C MP3, HEMDF, LACT3, LIPA4 #### [facility] [address] [place] [address] Potassium [Moles/Vol] 3.7 mmol/L Normal 3.5-5.1 [facility] Comment on above: Performed By: #### C MP3, HEMDF, LACT3, LIPA4 #### [facility] [address] [place] [address] Sodium [Moles/Vol] 136 mmol/L Normal 135-145 [facility] Comment on above: Performed By: #### C MP3, HEMDF, LACT3, LIPA4 #### [facility] [address] [place] [address] Complete Urinalysison 2018 Appearance (U) Clear Normal Clear [facility] Comment on above: Performed By: #### C UA2 #### [facility] [address] [place] [address] Bilirubin,Urine Negative Normal Negative [facility] Comment on above: Performed By: #### C UA2 #### [facility] [address] [place] [address] Color (U) Light-Yellow Normal Lt. Yellow [facility] Comment on above: Performed By: #### C UA2 #### [facility] [address] [place] [address] Glucose Ql (U) Normal Normal Normal (<70) [facility] Comment on above: Performed By: #### C UA2 #### [facility] [address] [place] [address] Ketone,Urine 80 mg/dL Normal Negative [facility] Comment on above: Performed By: #### C UA2 #### [facility] [address] [place] [address] Leukocytes,Urine Negative Normal Negative [facility] Comment on above: Performed By: #### C UA2 #### [facility] [address] [place] [address] Nitrites,Urine Negative Normal Negative [facility] Comment on above: Performed By: #### C UA2 #### [place] [address] [place] [address] Occult Blood,Urine Negative Normal Negative [facility] Comment on above: Performed By: #### C UA2 #### [facility] [address] [place] [address] pH (U) 5.0 Normal 5.0-8.0 [facility] Comment on above: Performed By: #### C UA2 #### [facility] [address] [place] [address] Protein (U) [Mass/Vol] Negative Normal Negative [facility] Comment on above: Performed By: #### C UA2 #### [facility] [address] [place] [address] Specific Glendo,Urine > 1.030 Normal 1.005 -1.03 0 [facility] Comment on above: Performed By: #### C UA2 #### [facility] [address] [place] [address] Urobilinogen,Urine Normal Normal Normal (0-1) [facility] Comment on above: Performed By: #### C UA2 #### [facility] [address] [place] [address] Comprehensive Metabolic Pane javy 01-13-2019 Albumin [Mass/Vol] 4.6 g/dL 3.5 - 5 g/dL [place] ALP [Catalytic activity/Vol] 35 U/L Low 38 - 126 U/L [place] ALT [Catalytic activity/Vol] 140 U/L High 13 - 69 U/L [place] Anion gap [Moles/Vol] 9 mmol/L [place], [place] AST [Catalytic activity/Vol] 62 U/L High 15 - 46 U/L [place] Bilirubin Ql (U) 0.7 mg/dL 0.2 - 1.3 mg/dL [place] Calcium [Mass/Vol] 9.0 mg/dL 8.4 - 10. 4 mg/dL [place] Chloride [Moles/Vol] 104 mmol/L 98 - 10 7 mmol/L [place] CO2 [Moles/Vol] 23 mmol/L 22 - 30 mmol/L [place] Creatinine [Mass/Vol] 0.93 mg/dL 0.52 - 1.25 mg/dL [place] EGFR IF NonAfrican Vincentian >60.0 >60 mL/min [place] Comment on above: Source- MDRD equatio n with creatinine calibration to IDMS(NKDEP) eGFR not recommended for drug dose adjustment GFR/1.73 sq M predicted among blacks MDRD (S/P/Bld) [Vol rate/Area] mL/min/{1.73_m2} >60 mL/min [place] Glucose [Mass/Vol] 84 mg/dL 70 - 100 mg/dL [place] Interpretation and review of laboratory results Abnormal [place] Potassium [Moles/Vol] 3.7 mmol/L 3.5 - 5.1 mmol/L [place] Protein [Mass/Vol] 7.6 g/dL 6.3 - 8.2 g/dL [place] Sodium [Moles/Vol] 136 mmol/L 135 - 145 mmol/L [place] Urea nitrogen [Mass/Vol] 19 mg/dL 7 - 20 mg/dL [place] Hemogram (CBC) w/Auto Diffon 01-13-2019 Absolute Baso # 0.0 10*3/uL 0 - 0.2 10*3/uL [place] Absolute Neut # 13.2 10*3/uL High 1.8 - 7 10*3/uL [place] Basophils/100 WBC (Bld) 0.1 % 0 - 2 % [place] Eosinophils (Bld) [#/Vol] 0.0 10*3/uL 0 - 0.5 10*3/uL [place] Eosinophils/100 WBC (Bld) 0.2 % Low 1 - 6 % [place] Erythrocyte distribution width (RBC) [Ratio] 13.4 % 11.5 - 14.5 % [place] Granulocytes/100 WBC (Bld) 90.1 % High 40 - 80 % [place] Hematocrit (Bld) [Volume fraction] 44.4 % 40 - 52 % [place] Hemoglobin (Bld) [Mass/Vol] 15.1 g/dL 13 - 18 g/dL [place] Interpretation and review of laboratory results Abnormal [place] Lymphocytes (Bld) [#/Vol] 0.6 10*3/uL Low 1 - 4.3 10*3/uL [place] Lymphocytes/100 WBC (Bld) 3.9 % Low 20 - 40 % [place] MCH (RBC) [Entitic mass] 30.9 pg 26 - 34 pg [place] MCHC (RBC) [Mass/Vol] 34.1 % 32 - 36 % [place] MCV (RBC) [Entitic vol] 90.4 fL 80 - 98 fL [place] Monocytes (Bld) [#/Vol] 0.8 10*3/uL 0 - 0.8 10*3/uL [place] Monocytes/100 WBC (Bld) 5.7 % 2 - 10 % [place] Platelet mean volume (Bld) [Entitic vol] 8.0 fL 7.4 - 10.4 fL [place] Platelets (Bld) [#/Vol] 269 10*3/uL 140 - 440 10*3/uL [place] RBC (Bld) [#/Vol] 4.91 10*6/uL 4.4 - 5.9 10*6/uL [place] WBC (Bld) [#/Vol] 14.7 10*3/uL High 3.6 - 10.7 10*3/uL [place] Test Performed by [facility], [address] [place] [address] [place] Hemogram w/ Autodiffon 01-13 Abs Baso Cnt 0.0 10*3/uL Normal 0.0-0.2 [facility] Comment on above: Performed By: #### C MP3, HEMDF, LACT3, LIPA4 #### [facility] [address] [place] [address] Abs Neutrophile Cnt 13.2 10*3/uL High 1.8-7.0 [facility] Comment on above: Performed By: #### C MP3, HEMDF, LACT3, LIPA4 #### [facility] [address] [place] [address] Basophils/100 WBC (Bld) 0.1 % Normal 0.0-2.0 [facility] Comment on above: Performed By: #### C MP3, HEMDF, LACT3, LIPA4 #### [facility] [address] [place] [address] Eosinophils (Bld) [#/Vol] 0.0 10*3/uL Normal 0.0-0.5 [facility] Comment on above: Performed By: #### C MP3, HEMDF, LACT3, LIPA4 #### [facility] [address] [place] [address] Eosinophils/100 WBC (Bld) 0.2 % Low 1.0-6.0 [facility] Comment on above: Performed By: #### C MP3, HEMDF, LACT3, LIPA4 #### [facility] [address] [place] [address] Erythrocyte distribution width (RBC) [Ratio] 13.4 % Normal 11.5-14.5 [facility] Comment on above: Performed By: #### C MP3, HEMDF, LACT3, LIPA4 #### [facility] [address] [place] [address] Granulocytes/100 WBC (Bld) 90.1 % High 40.0-80.0 [facility] Comment on above: Performed By: #### C MP3, HEMDF, LACT3, LIPA4 #### [facility] [address] [place] [address] Hematocrit (Bld) [Volume fraction] 44.4 % Normal 40.0-52.0 [facility] Comment on above: Performed By: #### C MP3, HEMDF, LACT3, LIPA4 #### [facility] [address] [place] [address] Hemoglobin (Bld) [Mass/Vol] 15.1 g/dL Normal 13.0-18.0 [facility] Comment on above: Performed By: #### C MP3, HEMDF, LACT3, LIPA4 #### [facility] [address] [place] [address] Lymphocytes (Bld) [#/Vol] 0.6 10*3/uL Low 1.0-4.3 [facility] Comment on above: Performed By: #### C MP3, HEMDF, LACT3, LIPA4 #### [facility] [address] [place] [address] Lymphocytes/100 WBC (Bld) 3.9 % Low 20.0-40.0 [facility] Comment on above: Performed By: #### C MP3, HEMDF, LACT3, LIPA4 #### [facility] [address] [place] [address] MCH (RBC) [Entitic mass] 30.9 pg Normal 26.0-34.0 [facility] Comment on above: Performed By: #### C MP3, HEMDF, LACT3, LIPA4 #### [facility] [address] [place] [address] MCHC (RBC) [Mass/Vol] 34.1 % Normal 32.0-36.0 [facility] Comment on above: Performed By: #### C MP3, HEMDF, LACT3, LIPA4 #### [facility] [address] [place] [address] MCV (RBC) [Entitic vol] 90.4 fL Normal 80.0-98.0 [facility] Comment on above: Performed By: #### C MP3, HEMDF, LACT3, LIPA4 #### [facility] [address] [place] [address] Monocytes (Bld) [#/Vol] 0.8 10*3/uL Normal 0.0-0.8 [facility] Comment on above: Performed By: #### C MP3, HEMDF, LACT3, LIPA4 #### [facility] [address] [place] [address] Monocytes/100 WBC (Bld) 5.7 % Normal 2.0-10.0 [facility] Comment on above: Performed By: #### C MP3, HEMDF, LACT3, LIPA4 #### [facility] [address] [place] [address] Platelet mean volume (Bld) [Entitic vol] 8.0 fL Normal 7.4-10.4 [facility] Comment on above: Performed By: #### C MP3, HEMDF, LACT3, LIPA4 #### [facility] [address] [place] [address] Platelets (Bld) [#/Vol] 269 10*3/uL Normal 140-440 [facility] Comment on above: Performed By: #### C MP3, HEMDF, LACT3, LIPA4 #### [facility] [address] [place] [address] RBC (Bld) [#/Vol] 4.91 10*6/uL Normal 4.40-5.90 [facility] Comment on above: Performed By: #### C MP3, HEMDF, LACT3, LIPA4 #### [facility] [address] [place] [address] WBC (Bld) [#/Vol] 14.7 10*3/uL High 3.6-10.7 [facility] Comment on above: Performed By: #### C MP3, HEMDF, LACT3, LIPA4 #### [facility] [address] [place] [address] Lactic Acidon 01-13-2019 Lactate [Moles/Vol] 0.8 mmol/L Normal 0.7-2.0 [facility] Comment on above: Performed By: #### C MP3, HEMDF, LACT3, LIPA4 #### [facility] [address] [place] [address] Lactic Acid, Plasmaon 2018 Lactate [Moles/Vol] 0.8 mmol/L 0.7 - 2 mmol/L [place] Test Performed by [facility], [address] [place] [address] [place] Lipaseon 01-13-2019 Lipase [Catalytic activity/Vol] 137 U/L Normal 23-300 [facility] Comment on above: Performed By: #### C MP3, HEMDF, LACT3, LIPA4 #### [facility] [address] [place] [address] Lipase [Catalytic activity/Vol] 137 U/L 23 - 300 U/L [place] Otheron 01-13-2019 Test Performed by [facility], [address] [place] [address] [place] Urinalysison 01-13-2019 Appearance (U) Clear Clear NA [place] Bilirubin Urine Negative Negative mg/dL [place] Color (U) Light-Yellow Lt. Yellow NA [place] Glucose, Ur Normal Normal (<70) mg/dL [place] Ketones Ql (U) 80 mg/dL Negative [place] LEUKOCYTES, UA Negative Negative Luis/uL [place] Nitrite, Urine Negative Negative NA [place] Occult Blood,Urine Negative Negative mg/dL [place] pH (U) 5.0 [pH] [place] Protein (U) [Mass/Vol] Negative Negat jose r mg/dL [place] Specific Glendo, Urine >1.030 [place] Urobilinogen, Urine Normal Normal (0-1) mg/dL [place] Test Performed by [facility], [address] [place] [address] [place] CR Chest PA/LATon 07-06-2018 CR Chest PA/LAT Patient Name: CRUZ POMPA Diagnostic Radiology Exam Date/Time 07/06/2018 13:05:00 EDT Exam CR Chest PA/LAT Ordering Physician GERARDO PAYNE WILLIAM C. Accession Number [id number] CPT4 Codes 72220 () Reason For Exam left sided back pain Report CHEST (Frontal and lateral) History: Respiratory abnormality , left chest pain Comparison: None available Findings: Frontal and lateral chest views show no lung infiltrate or congestion. The heart is normal in size. There is no mediastinal widening or pleural effusion. IMPRESSION: Unremarkable exam . Report Dictated on Final Dictating Physician: MD WAHL AHMAD Signed Date and Time: 07/06/2018 1:16 pm Signed by: MD WAHL AHMAD Transcribed Date and Time: 07/06/2018 1:17 Normal [facility] Comp Metabolic Panelon 07-06 ALP enzyme act/vol 43 U/L Normal 38-126 [facility] Comment on above: Performed By: #### H EMOG, DDI2, CMP3, LIPA4, TROPN #### [facility] [address] [place] [address] ALT enzyme act/vol 76 U/L High 13-69 [facility] Comment on above: Performed By: #### H EMOG, DDI2, CMP3, LIPA4, TROPN #### [facility] [address] [place] [address] Anion gap molar conc 10 Normal [facility] Comment on above: Performed By: #### H EMOG, DDI2, CMP3, LIPA4, TROPN #### [facility] [address] [place] [address] AST enzyme act/vol 64 U/L High 15-46 [facility] Comment on above: Performed By: #### H EMOG, DDI2, CMP3, LIPA4, TROPN #### [facility] [address] [place] [address] Bilirubin mass conc 0.4 mg/dL Normal 0.2-1.3 [facility] Comment on above: Performed By: #### H EMOG, DDI2, CMP3, LIPA4, TROPN #### [facility] [address] [place] [address] Calcium mass conc 9.1 mg/dL Normal 8.4-10.4 [facility] Comment on above: Performed By: #### H EMOG, DDI2, CMP3, LIPA4, TROPN #### [facility] [address] [place] [address] CO2 molar conc 27 mmol/L Normal 22-30 [facility] Comment on above: Performed By: #### H EMOG, DDI2, CMP3, LIPA4, TROPN #### [facility] [address] [place] [address] Glucose mass conc 93 mg/dL Normal 70-100 [facility] Comment on above: Performed By: #### H EMOG, DDI2, CMP3, LIPA4, TROPN #### [facility] [address] [place] [address] Protein mass conc 7.3 g/dL Normal 6.3-8.2 [facility] Comment on above: Performed By: #### H EMOG, DDI2, CMP3, LIPA4, TROPN #### [facility] [address] [place] [address] Urea nitrogen mass conc 19 mg/dL Normal 7-20 [facility] Comment on above: Performed By: #### H EMOG, DDI2, CMP3, LIPA4, TROPN #### [facility] [address] [place] [address] Creatinine mass conc 1.09 mg/dL Normal 0.52-1.25 [facility] Comment on above: Performed By: #### H EMOG, DDI2, CMP3, LIPA4, TROPN #### [facility] [address] [place] [address] GFR/1.73 sq M predicted among blacks MDRD vol rate/area (S/P/Bld) mL/min/{1.73_m2} Normal >60 [facility] Comment on above: Performed By: #### H EMOG, DDI2, CMP3, LIPA4, TROPN #### [facility] [address] [place] [address] GFR/1.73 sq M predicted among non-blacks MDRD vol rate/area (S/P/Bld) mL/min/{1.73_m2} Normal >60 [facility] Comment on above: Result Comment: Sour ce- MDRD equation with creatinine calibration to IDMS(NKDEP) eGFR not recommended for drug dose adjustment Performed By: #### H EMOG, DDI2, CMP3, LIPA4, TROPN #### [facility] [address] [place] [address] Potassium molar conc 4.1 mmol/L Normal 3.5-5.1 [facility] Comment on above: Performed By: #### H EMOG, DDI2, CMP3, LIPA4, TROPN #### [facility] [address] [place] [address] Albumin mass conc 4.4 g/dL Normal 3.5-5.0 [facility] Comment on above: Performed By: #### H EMOG, DDI2, CMP3, LIPA4, TROPN #### [facility] [address] [place] [address] Chloride molar conc 101 mmol/L Normal 98-107 [facility] Comment on above: Performed By: #### H EMOG, DDI2, CMP3, LIPA4, TROPN #### [facility] [address] [place] [address] Sodium molar conc 138 mmol/L Normal 135-145 [facility] Comment on above: Performed By: #### H EMOG, DDI2, CMP3, LIPA4, TROPN #### [facility] [address] [place] [address] D-Dimer, Innovanceon 04-24-2 019 D-Dimer, Innovance 0.26 mg/L Normal 0.00-0.50 [facility] Comment on above: Result Comment: Inno maldonado D-Dimer values of <0.50 mg/L FEU can be used in combination with a pre-test probability model (e.g. Well's) to exclude pulmonary embolism (PE) disease, as well as an aid in the diagnosis of deep vein thrombosis (DVT). Performed By: #### H EMOG, DDI2, CMP3, LIPA4, TROPN #### [facility] [address] [place] [address] Hemogramon 07-06-2018 Erythrocyte distribution width Ratio (RBC) 12.5 % Normal 11.5-14.5 [facility] Comment on above: Performed By: #### H EMOG, DDI2, CMP3, LIPA4, TROPN #### [facility] [address] [place] [address] Hematocrit Volume Fraction (Bld) 44.3 % Normal 40.0-52.0 [facility] Comment on above: Performed By: #### H EMOG, DDI2, CMP3, LIPA4, TROPN #### [facility] [address] [place] [address] Hemoglobin mass conc (Bld) 15.0 g/dL Normal 13.0-18.0 [facility] Comment on above: Performed By: #### H EMOG, DDI2, CMP3, LIPA4, TROPN #### [facility] [address] [place] [address] MCH Entitic mass (RBC) 30.8 pg Normal 26.0-34.0 [facility] Comment on above: Performed By: #### H EMOG, DDI2, CMP3, LIPA4, TROPN #### [facility] [address] [place] [address] MCHC mass conc (RBC) 34.0 % Normal 32.0-36.0 [facility] Comment on above: Performed By: #### H EMOG, DDI2, CMP3, LIPA4, TROPN #### [facility] [address] [place] [address] MCV Entitic volume (RBC) 90.8 fL Normal 80.0-98.0 [facility] Comment on above: Performed By: #### H EMOG, DDI2, CMP3, LIPA4, TROPN #### [facility] [address] [place] [address] Platelet mean volume Entitic volume (Bld) 7.6 fL Normal 7.4-10.4 [facility] Comment on above: Performed By: #### H EMOG, DDI2, CMP3, LIPA4, TROPN #### [facility] [address] [place] [address] Platelets #/vol (Bld) 259 10*3/uL Normal 140-440 [facility] Comment on above: Performed By: #### H EMOG, DDI2, CMP3, LIPA4, TROPN #### [facility] [address] [place] [address] RBC #/vol (Bld) 4.88 10*6/uL Normal 4.40-5.90 [facility] Comment on above: Performed By: #### H EMOG, DDI2, CMP3, LIPA4, TROPN #### [facility] [address] [place] [address] WBC #/vol (Bld) 7.2 10*3/uL Normal 3.6-10.7 [facility] Comment on above: Performed By: #### H EMOG, DDI2, CMP3, LIPA4, TROPN #### [facility] [address] [place] [address] Lipaseon 07-06-2018 Lipase enzyme act/vol 117 U/L Normal 23-300 [facility] Comment on above: Performed By: #### H EMOG, DDI2, CMP3, LIPA4, TROPN #### [facility] [address] [place] [address] Troponin Ion 07-06-2018 Troponin I.cardiac mass conc ng/mL Normal 0.000-0.03 4 [facility] Comment on above: Result Comment: 0.04 6 - 0.400 = Indeterminate > 0.400 = Consider Myocardial Injury Performed By: #### H EMOG, DDI2, CMP3, LIPA4, TROPN #### [facility] [address] [place] [address] US Abdomen Limitedon 019 US Abdomen Limited Patient Name: CRUZ POMPA Ultrasound Exam Date/Time 07/06/2018 13:05:51 EDT Exam US Abdomen Limited Ordering Physician GERARDO PAYNE, FLORINA Nelson Accession Number [id number] CPT4 Codes 17476 () Reason For Exam left shoulder pain, nausea Report RIGHT UPPER QUADRANT ABDOMINAL SONOGRAM History: Abdominal pain, nausea Findings: Sonogram directed to the right upper quadrant of the abdomen shows unremarkable appearance of the liver. Reportedly, the patient had a meal prior to this exam. The gallbladder is partially contracted and there is borderline thickening of its wall without gallstones or pericholecystic fluid. There is no bile duct dilatation. The common bile duct measures 2.5 mm in diameter. There is suboptimal visualization of the pancreas due to degrading bowel gas artifact but there is no gross pancreatic enlargement. Partially visualized right kidney measures 10.2 x 4.8 x 5.8 cm without hydronephrosis. IMPRESSION: Unremarkable liver. Partially contracted gallbladder with borderline wall thickening without gallstones or biliary dilatation. Suboptimal visualization of the pancreas. Report Dictated on Final Dictating Physician: MD WAHL AHMAD Signed Date and Time: 07/06/2018 1:25 pm Signed by: MD WAHL AHMAD Transcribed Date and Time: 07/06/2018 1:27 Normal [facility] Office Visit: UC: poison heydi not getting betteron 09-20-2016 Dietary management education, guidance, and counseling (procedure) yes Invalid Interpretation Code [facility] Work Phone: Documentation of current medications (procedure) Done Invalid Interpretation Code [facility] Work Phone: Fall risk assessment No Invalid Interpretation Code [facility] Work Phone: Tobacco smoking status NHIS Never Invalid Interpretation Code [facility] Work Phone: Tobacco use HS Never smoker Invalid Interpretation Code [facility] Work Phone: Office Visit: UC: Poison Heydi on 09-13-2016 Documentation of current medications (procedure) Done Invalid Interpretation Code [facility] Work Phone: Protein mass conc Done [facility] Work Phone: Office Visiton 04-13-2016 Dietary management education, guidance, and counseling (procedure) yes Invalid Interpretation Code [facility] Work Phone: Documentation of current medications (procedure) Done Invalid Interpretation Code [facility] Work Phone: Tobacco smoking status NHIS Never [facility] Work Phone: Tobacco smoking status NHIS Never smoker [facility] Work Phone: Tobacco use HS Never smoker Invalid Interpretation Code [facility] Work Phone: Vital Signs Date Time Vital Sign Value Performing Clinician Facility 08-03-2024 16:16-0400 Body temperature 97.5 [degF] Anthony Kwok MD Work Phone: [phone] [place] [address] 08-03-2024 16:16-0400 Diastolic blood pressure 72 mm[Hg] Anthony Kwok MD Work Phone: [phone] [place] [address] 08-03-2024 16:16-0400 Heart rate 73 /min Anthony Kwok MD Work Phone: [phone] [place] [address] 08-03-2024 16:16-0400 Respiratory rate 16 /min Anthony Kwok MD Work Phone: [phone] [address] 08-03-2024 16:16-0400 SaO2% (BldA) [Mass fraction] 95 % Anthony Kwok MD Work Phone: [facility] 08-03-2024 16:16-0400 Systolic blood pressure 123 mm[Hg] Anthony Kwok MD Work Phone: [phone] [address] 08-03-2024 15:00-0400 Inhaled oxygen flow rate 2 L/min Anthony Kwok MD Work Phone: [phone])[phone] [place] [address] 08-03-2024 11:04-0400 Body height 180.34 cm Anthony Kwok MD Work Phone: [phone] [address] 08-03-2024 11:04-0400 Body mass index (BMI) [Ratio] 32.6 kg/m2 Anthony Kwok MD Work Phone: [facility] 08-03-2024 11:04-0400 Body weight 106.18 kg Anthony Kwok MD Work Phone: [facility] 04-28-2019 12:35-0500 BMI (Body Mass Index) 26.78 kg/m2 Wilson HERNANDEZ Work Phone: 04-28-2019 12:35-0500 Body Temperature 98.01 [degF] Wilson HERNANDEZ Work Phone: 04-28-2019 12:35-0500 Body weight 87.09 kg Wilson HERNANDEZ Work Phone: 04-28-2019 12:35-0500 BP Diastolic 90 mm[Hg] Wilson HERNANDEZ Work Phone: 04-28-2019 12:35-0500 BP Systolic 128 mm[Hg] Wilson HERNANDEZ Work Phone: 04-28-2019 12:35-0500 Height 180.3 cm Wilson HERNANDEZ Work Phone: 04-28-2019 12:35-0500 Pulse (Heart Rate) 56 /min Wilson HERNANDEZ Work Phone: 04-28-2019 12:35-0500 Pulse Oximetry 100 % Wilson HERNANDEZ Work Phone: 04-28-2019 12:35-0500 Respiratory Rate 18 /min Wilson HERNANDEZ Work Phone: 01-13-2019 22:23-0400 Body Temperature 100.09 [degF] [place] 01-13-2019 22:23-0400 BP Diastolic 62 mm[Hg] [place] 01-13-2019 22:23-0400 BP Systolic 114 mm[Hg] [place] 01-13-2019 22:23-0400 Pulse (Heart Rate) 90 /min [place] 01-13-2019 22:23-0400 Pulse Oximetry 99 % [place] 01-13-2019 22:23-0400 Respiratory Rate 18 /min [place] 01-13-2019 18:43-0400 Body weight 89.36 kg [employer] 09-20-2016 12:24-0400 BMI (Body Mass Index) 32.99 kg/m2 Brenda Carmona LPN [facility] Work Phone: 09-20-2016 12:24-0400 Body Temperature 98.3 [degF] Brenda Carmona LPN [facility] jael Work Phone: 09-20-2016 12:24-0400 BP Diastolic 72 mm[Hg] Brenda Carmona LPN [facility] Work Phone: 09-20-2016 12:24-0400 BP Systolic 118 mm[Hg] Brenda Carmona LPN [facility] Work Phone: 09-20-2016 12:24-0400 Height 175.26 cm Brenda Carmona LPN [facility] Work Phone: 09-20-2016 12:24-0400 Pulse (Heart Rate) 68 /min Brenda Carmona LPN [facility] Work Phone: 09-20-2016 12:24-0400 Respiratory Rate 12 /min Brenda Carmona LPN [facility] Work Phone: 09-20-2016 12:24-0400 Weight 101.33 kg Brenda Carmona LPN [facility] Work Phone: 09-13-2016 11:58-0400 BMI (Body Mass Index) 31.89 kg/m2 Emilia Grovercarolynn OUTSOLE SCHEDULER [facility] Work Phone: 09-13-2016 11:58-0400 Body Temperature 98 [degF] Emilia Casas OUTSOLE SCHEDULER [facility] Work Phone: 09-13-2016 11:58-0400 BP Diastolic 90 mm[Hg] Emilia Grovercarolynn OUTSOLE SCHEDULER [facility] Work Phone: 09-13-2016 11:58-0400 BP Systolic 170 mm[Hg] Emilia Grovercarolynn OUTSOLE SCHEDULER [facility] Work Phone: 09-13-2016 11:58-0400 Height 175.26 cm Emilia Casas LPN [facility] Work Phone: 09-13-2016 11:58-0400 Pulse (Heart Rate) 64 /min Emilia Casas LPN [facility] Work Phone: 09-13-2016 11:58-0400 Pulse Oximetry 98 % Emilia Casas LPN [facility] Work Phone: 09-13-2016 11:58-0400 Respiratory Rate 16 /min Emilia Casas LPN [facility] Work Phone: 09-13-2016 11:58-0400 Weight 97.98 kg Emilia Casas LPN [facility] Work Phone: 04-13-2016 13:11-0500 BMI (Body Mass Index) 31.89 kg/m2 Vic Peters MD [facility] Work Phone: 04-13-2016 13:11-0500 Weight 97.98 kg Vic Peters MD [facility] Work Phone: 02-21-2016 13:01-0500 Body Temperature 98.1 [degF] Vic Peters MD [facility] Work Phone: 02-21-2016 13:01-0500 BP Diastolic 77 mm[Hg] Vic Peters MD [facility] Work Phone: 02-21-2016 13:01-0500 BP Systolic 143 mm[Hg] Vic Peters MD [facility] Work Phone: 02-21-2016 13:01-0500 BSA (Body Surface Area) 2.19 m2 Vic Peters MD [facility] Work Phone: 02-21-2016 13:01-0500 Pulse (Heart Rate) 74 /min Vic Peters MD [facility] Work Phone: 02-21-2016 13:01-0500 Pulse Oximetry 98 % Vic Peters MD [facility] Work Phone: 02-21-2016 13:01-0500 Respiratory Rate 16 /min Vic Peters MD [facility] Work Phone: 01-17-2016 [phone] Height 175.26 cm Vic Peters MD [facility] Work Phone: [phone]:[phone] Weight 103.64 kg Vic Peters MD [facility] Work Phone: Encounters Encounter Date Encounter Type Care Provider Facility Start: 11-23-2024 End: 11-23-2024 ambulatory No Primary Care Physician -Radiology [facility] Start: 11-23-2024 End: 11-23-[address] Brandon Ugarte DO -Radiology [facility] Work Phone: Start: 11-23-2024 End: 11-23-2024 ambulatory [facility] Facility:[facility] Start: 11-10-2024 Encounter for genera l adult medical examination without abnormal findings [facility] Start: 11-06-2024 End: 11-06-2024 ambulatory Anthony Kwok MD Work Phone: -Laboratory [facility] Start: 11-06-2024 End: 11-06-[address] Brandon Ugarte DO -Laboratory [facility] Nune[facility] Start: 11-06-2024 End: 11-06-2024 ambulatory Brandon Torito Facility:[facility] Start: 08-17-2024 End: 08-17-2024 Patient encounter procedure Talia Gant PA-C -[facility] Work Phone: Start: 08-17-2024 End: 08-17-2024 ambulatory Anthony Kwok MD Work Phone: [facility] Work Phone: Start: 08-03-2024 End: 08-03-2024 Admission to same day surgery center Dr. Virginie Bolden MD -[facility] Start: 08-03-2024 End: 08-03-2024 ambulatory Virginie Bolden Facility:[facility] Start: 08-03-2024 Non-patient / Non-visit Dr. John Bolden MD -[facility] Start: 08-03-2024 End: 08-03-2024 Emergency department patient visit PHYSICIAN SONAL [facility] Start: 04-27-2024 Emergency department patient visit BANDAR PEMBERTON Facility:[facility] Start: 09-08-2021 End: 09-08-2021 Patient encounter procedure [facility] Start: 04-28-2019 End: 04-28-2019 Emergency department patient visit Wilson Ramos Work Phone: [facility] Emergency [facility] Comment on above: Atypical chest pain (Primary Dx) Start: 01-13-2019 End: 01-13-2019 Emergency department patient visit [facility] [place] [facility] Comment on above: Diverticulitis of co javy (Primary Dx) Start: 07-06-2018 Emergency department patient visit UNKNOWN PROVIDER [place] Procedures Date Procedure Procedure Detail Performing Clinician Start: 11-23-2024 Plain X-ray of shoulder No Primary Care Physician Start: 08-03-2024 Urnls dip stick/tabl et reagent auto microscopy Anthony Kwok MD Work Phone: Start: 08-03-2024 Estimated creatinine clearance Anthony Kwok MD Work Phone: Start: 08-03-2024 Computed tomography of abdomen and pelvis with intravenous contrast Anthony Kwok MD Work Phone: Start: 04-28-2019 Radiologic exam ches t 2 views Wilson Ramos Work Phone: Start: 01-19-2019 Microscopic examinat ion of blood, culture Comment on above: Order Comment: Speci men Source Comment:Blood Performed By: #### C /BLT #### [facility] [address] [address] Performed By: #### C /BLD #### [address] [address] Start: 01-13-2019 Urnls dip stick/tabl et rgnt auto w/o microscopy Marietta Kaur Work Phone: Start: 01-13-2019 CT ABDOMEN PELVIS W CONTRAST Marietta Kaur Work Phone: Start: 01-13-2019 Assay of lactate Marietta Kaur Work Phone: Start: 01-13-2019 Assay of lipase Marietta phipps Work Phone: Start: 01-13-2019 Blood count complete auto&auto difrntl wbc Marietta Kaur Work Phone: Start: 01-13-2019 Comprehensive metabo lic panel Marietta Kaur Work Phone: Start: 04-13-2016 End: 04-13-2016 Dietary management education, guidance, and counseling Emilia Casas LPN Start: 02-21-2016 End: 02-21-2016 Follow Up with Primary Care Physician Vic Peters MD Work Phone: Start: 02-21-2016 End: 02-21-2016 Follow-up visit Vic Peters MD Work Phone: H/O: vasectomy Hx of vasectomy Plan of Treatment Date Care Activity Detail Author Start: 08-03-2024 Anesthesia intraperitoneal lower abd w/laps nos ANESTH SURG LOWER ABDOMEN [facility] Start: 08-03-2024 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 appendectomy LAPAROSCOPY APPENDECTOMY [facility] Start: 08-03-2024 Patient discharge [facility] Start: 08-03-2024 Hospital admission, emergency, from emergency room, medical nature [facility] Start: 11-13-2018 Influenza vaccination Flu vaccine (#1) [place], [place] Start: 09-20-2016 End: 09-20-2016 Appointment Appointment [facility] Work Phone: Start: 09-13-2016 End: 09-13-2016 Appointment Appointment [facility] Work Phone: Start: 04-13-2016 End: 04-13-2016 Mri jnt of lwr extre w/o dye MRI Joint Lower Extremity [facility] [employer] Work Phone: Start: 04-13-2016 End: 04-13-2016 X-ray exam, knee, 4 or more X-Ray, Knee [facility] Work Phone: Start: 02-21-2016 End: 02-21-2016 Follow Up with Primary Care Physician Follow Up with Primary Care Physician [facility] Work Phone: Start: 02-21-2016 End: 02-21-2016 Follow-up visit Follow Up as needed [facility] Work Phone: Start: 01-17-2016 End: 01-17-2016 Diagnostic colonoscopy Colonoscopy [facility] Deion Singh Work Phone: Start: 01-17-2016 End: 01-17-2016 Follow Up after Imaging/labs Follow Up after Imaging/labs [facility] [place] Work Phone: Start: 01-17-2016 End: 01-17-2016 Uppr gi endoscopy, diagnosis Upper gastrointestinal endoscopy [facility] Work Phone: End: 01-13-2019 Culture Blood #1 Culture Blood #1 Microbiology STAT One Time for 1 Occurrences starting 01/13/2019 until 01/13/2019 [place] Comment on above: One Time for 1 Occurrences starting 03/2018 until 01/13/2019 Culture Blood #1 Culture Blood # 1 Microbiology STAT 01/13/2019 7:44 PM EDT [place], [place] End: 01-13-2019 Culture Blood #2 Culture Blood #2 Microbiology STAT One Time for 1 Occurrences starting 01/13/2019 until 01/13/2019 [place] Comment on above: One Time for 1 Occurrences starting 03/2018 until 01/13/2019 Culture Blood #2 Culture Blood # 2 Microbiology STAT 01/13/2019 7:44 PM EDT [place], [place] Patient Education [facility] [place] Work Phone: Patient referral [facility] Work Phone: Payers Date Payer Category Payer Private Health Insurance [id number] 2024 Self-pay [id number] 2024 Medicaid [id number] 2019 Private Health Insurance [id number] 2015 Unknown SELF PAY INSURANCE [id number] 1986 Unknown [id number] 1986 Unknown [id number] Unknown Unknown [id number] Unknown [id number] Unknown [id number] Unknown [id number] Unknown [id number] Social History Date Type Detail Facility Start: 10-17-2018 End: 01-13-2019 Tobacco smoking status [facility] Unknown if ever smoked [place], [place] Sex Assigned At Not on file [place] Start: 04-28-2019 End: 08-03-2024 Tobacco smoking status NJIS Former smoker [facility] Start: 04-28-2019 Alcohol intake Current drinke r of alcohol (finding) [facility] Work Phone: Start: 07-06-2018 Alcohol Comment daily couple beers S [facility] Work Phone: End: 03-15-2015 History of tobacco use [facility] Start: 10-17-2018 Spouse/ Signif icant Other [facility] Start: 10-17-2018 Cigarettes;Chew [facility] Start: 1985 Sex Assigned At Male W [facility] Medical Equipment Procedure Code Equipment Code Equipment Origin al Text Equipment Identifier Dates Appendectomy, laparoscopic RELOAD,STD 45 [id number] FDA Start: 08-03-2024 Appendectomy, laparoscopic RELOAD,STD 45 [id number] FDA Start: 08-03-2024 Appendectomy, laparoscopic RELOAD,STD 45 [id number] FDA Start: 08-03-2024 Mental Status Date Assessment Result Facility 08-03-2024 Cognitive function Voice/Name [facility] Work Phone: Radiology Diagnostic study note 11-23-2024 Note Date & Type Note Facility 11-23-2024 Radiology Diagnostic study note [facility] [address] [place] [address] Shoulder min 2 Views MR#: [id number] Acct: [id number] Name: RAVEN SIMMONS Rep #: [id number] : 1985 M 38 From: Dominick Can MD PCP: Dr. Brandon Ugarte DO Status: REG CLI Study:Shoulder min 2 Views Date of Exam: 11/23/24 Exam# [id number] Ordering Dr: Brandon Ugarte DO PROCEDURE: SHOULDER MIN 2 VIEWS 11/23/2024 REASON FOR EXAM: PAIN IN RIGHT SHOULDER TECHNIQUE: Procedure Code: RADSH Modality: DX Procedure: SHOULDER MIN 2 VIEWS Laterality: Right COMPARISON: None. 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 The right glenohumeral joint is unremarkable in appearance. No acute fracture or dislocation otherwise noted Reading Location: [place] [address] CC: Dr. Brandon Ugarte DO ~ Quantitative Analyst: Signed [facility] Evaluation note 08-17-2024 Note Date & Type Note Facility 08-17-2024 Evaluation note Diagnosis Onset Date Resolution S/P laparoscopic appendectomy acute August 17, 2024 8 :01am [facility] Work Phone: Evaluation note 08-03-2024 Note Date & Type Note Facility 08-03-2024 Evaluation note Diagnosis Onset Date Resolution Abdominal pain resolved August 03, 2024 11:04am Acute appendicitis resolved August 032024 11:04am [facility] Work Phone: Evaluation note 08-03-2024 Note Date & Type Note Facility 08-03-2024 Evaluation note Diagnosis Onset Date Resolution Abdominal pain resolved August 03, 2024 11:04am Acute appendicitis resolved August 032024 11:04am S/P laparoscopic appendectomy acute August 17, 2024 8 :01am [facility] Work Phone: Evaluation note Note Date & Type Note Facility Evaluation note No assessment information availa ble [facility] Work Phone: Reason for referral (narrative) Note Date & Type Note Facility Reason for referral (narrative) No reason for referral information available [facility] Work Phone: Summary Purpose Family History Relationship Condition Age at Onset Recorded Date/T mono mother Hypertension Unknown father Malignant neoplasm of thyroid gland Unkno wn Advance Directives Documents on File Type Date Recorded Patient Court Crier Expl anation Advance Directives and Living Will Power of Director Of Outreach Advance Directive Response Recorded Date/ Time Advance Directives No January 10:17am Living Will No October 17, 2018 3:23pm Power of Director Of Outreach No October 17 3:23pm Advance Directive Response Recorded Date/ Time Do you have a Healthcare Power of Director Of Outreach? No August 03, 2024 9:29am Advance Directives No January 10:17am Advance Directive Response Recorded Date/ Time Advance Directives No January 10:17am Discharge Instructions * Attachments The following attachments cannot be sent through Care Everywhere. * Diverticulitis ([place]) documented in this encounter* Instructions* Wilson Ramos MD - 04/28/2019 Tylenol and/or Advil if any persistent pain. Return if new concerns. Follow-up with your doctor forfurther outpatient evaluation as needed. documented in this encounter Assessments Diagnosis Diverticulitis of colon- Primary Diverticulitis of colon (without mention of hemorrhage) Diagnosis Atypical chest pain- Primary Other chest pain Chief Complaint and Reason for Visit Chief Complaint LABWORK Chief Complaint Admit Date APPENDICITIS August 03, 2024 10:58 am APPENDICITIS August 03, 2024 11:04 am APPY 08-03August 17, 2024 8:01a m Reason for Visit Admit Date Abdominal pain August 03, 2024 11:04 am Acute appendicitis August 03, 2024 11:04 am Reason for Visit Admit Date Abdominal pain August 03, 2024 11:04 am Acute appendicitis August 03, 2024 11:04 am S/P laparoscopic appendectomy August 17, 2024 8:01am Chief Complaint Admit Date APPY -August 17, 2024 8:01a m Pain in right shoulder November 23, 12:44pm Reason for Visit Admit Date S/P laparoscopic appendectomy August 17, 2024 8:01am Additional Source Comments (unrecognized sect ion and content) No Status Records FoundNo Status Records FoundNo Status Records FoundNo Status Records FoundNo Status Records FoundNo Status Records FoundNo Status Records Found INFORMATION SOURCE (unrecogn ized section and content) DATE CREATED AUTHOR 07/20/2018 [facility] DATE CREATED AUTHOR AUTHOR'S ORGANIZ ATION 01/19/2019 [facility] DATE CREATED AUTHOR AUTHOR'S ORGANIZ ATION 05/02/2019 [facility] DATE CREATED AUTHOR AUTHOR'S ORGANIZ ATION 12/06/2020 [facility] DATE CREATED AUTHOR AUTHOR'S ORGANIZ ATION 04/29/2024 [facility] DATE CREATED AUTHOR AUTHOR'S ORGANIZ ATION 08/09/2024 [facility] DATE CREATED AUTHOR AUTHOR'S ORGANIZ ATION 12/02/2024 [facility] Reason for Visit (unrecogniz ed section and content) Reason Comments Abdominal Pain Reason Comments Chest Pain Pt c/o left side [facility] pain for a couple days. Describes as dull, radiating into back at times. A&Ox3. Respirs reg, non-labored. Skin warm, pink, dry. Appears in NAD. Ambulated into dept without difficulty or assistance. Goals (unrecognized section and content) Goals may be documented in a n alternate sectionGoals may be documented in an alternate sectionGoals may be documented in an alternate sectionGoals may be documented in an alternate section Care Teams (unrecognized sec tion and content) Team Status: Active Member Role Status Dates No Primary Care Physician Primary Care Provider Active Team Status: Active Member Role Status Dates Anthony Kwok MD Emergency Provider Active Star t: August 03, 2024 No Primary Care Physician Primary Care Provider Active Start: August 03, 2024 Dr. Virginie Bolden MD Attending Provider Active Start: August 03, 2024 Dr. Virginie Bolden MD Other Provider Active S tart: August 03, 2024 Team Status: Inactive Member Role Status Dates Anthony Kwok MD Emergency Provider Active Star t: August 03, 2024 End: August 03, 2024 No Primary Care Physician Primary Care Provider Active Start: August 03, 2024 End: August 03, 2024 Dr. Virginie Bolden MD Attending Provider Active Start: August 03, 2024 End: August 03, 2024 Team Status: Inactive Member Role Status Dates No Primary Care Physician Primary Care Provider Active Start: August 17, 2024 End: August 17, 2024 No Primary Care Physician Referring Provider Active Start: August 17, 2024 End: August 17, 2024 Talia WALKER PA-C Attending Provider Active Start: August 17, 2024 End: August 17, 2024 Team Status: Active Member Role/Relationship Status Dates Dr. Brandon Ugarte DO Primary Care Provider Active Team Status: Active Member Role/Relationship Status Dates Anthony Kwok MD Emergency Provider Active Star t: August 03, 2024 No Primary Care Physician Primary Care Provider Active Start: August 03, 2024 Dr. Virginie Bolden MD Attending Provider Active Start: August 03, 2024 Dr. Virginie Bolden MD Other Provider Active S tart: August 03, 2024 Team Status: Inactive Member Role/Relationship Status Dates Anthony Kwok MD Emergency Provider Active Star t: August 03, 2024 End: August 03, 2024 No Primary Care Physician Primary Care Provider Active Start: August 03, 2024 End: August 03, 2024 Dr. Virginie Bolden MD Attending Provider Active Start: August 03, 2024 End: August 03, 2024 Team Status: Inactive Member Role/Relationship Status Dates No Primary Care Physician Primary Care Provider Active Start: August 17, 2024 End: August 17, 2024 No Primary Care Physician Referring Provider Active Start: August 17, 2024 End: August 17, 2024 Talia WALKER PA-C Attending Provider Active Start: August 17, 2024 End: August 17, 2024 Team Status: Inactive Member Role/Relationship Status Dates Dr. Brandon Ugarte DO Primary Care Provider Active Start: November 06, 2024 End: November 06, 2024 Dr. Brandon Ugarte DO Attending Provider Active Start: November 06, 2024 End: November 06, 2024 Team Status: Active Member Role/Relationship Status Dates Dr. Brandon Ugarte DO Primary care physician Active Team Status: Inactive Member Role/Relationship Status Dates No Primary Care Physician Primary care physician Activ e Start: August 17, 2024 End: August 17, 2024 No Primary Care Physician Referring Provider Active Start: August 17, 2024 End: August 17, 2024 Talia WALKER PA-C Attending physician Active Start: August 17, 2024 End: August 17, 2024 Team Status: Inactive Member Role/Relationship Status Dates Dr. Brandon Ugarte DO Primary care physician Active Start: November 06, 2024 End: November 06, 2024 Dr. Brandon Ugarte DO Attending physician Active Start: November 06, 2024 End: November 06, 2024 Team Status: Inactive Member Role/Relationship Status Dates Dr. Brandon Ugarte DO Primary care physician Active Start: November 23, 2024 End: November 23, 2024 Dr. Brandon Ugarte DO Attending physician Active Start: November 23, 2024 End: November 23, 2024 Dr. Barndon Ugarte DO Referring Provider Active Start: November 23, 2024 End: November 23, 2024 FOR RECORDS PERTAINING TO PATIENTS WHO ARE OR HAVE BEEN ENROLLED IN A CHEMICAL DEPENDENCY/SUBSTANCEABUSE PROGRAM, SOME INFORMATION MAY BE OMITTED. This clinical summary was aggregated from multiple sources. Caution should be exercised in using it in the provision of clinical care. This summary normalizes information from multiple sources, and as a consequence, information in this document may materially change the coding, format and clinical context of patient data. In addition, data may be omitted in some cases. CLINICAL DECISIONS SHOULD BE BASED ON THE PRIMARY CLINICAL RECORDS. [employer] provides no warranty or guarantee of the accuracy or completeness of information in this document.
--- NOTE | 2025-03-09 15:13 | CT_ITS ---
PROCEDURE: BRAIN/HEAD W/WO CONTRAST 03/09/2025 REASON FOR EXAM: JONES/NECK STIFFNESS/VALSALVA MAKES WORSE TECHNIQUE: Procedure Code: CTBRWW Modality: CT Procedure: BRAIN/HEAD W/WO CONTRAST Coronal and Sagittal reconstruction series were provided. CONTRAST: Isovue 370 VOLUME: 50 mL One or more dose reduction techniques were used (e.g., Automated exposure control, adjustment of the mA and/or kV according to patient size, use of iterative reconstruction technique). RADIATION DOSE SUMMARY: DLP: 1715.95 mGycm COMPARISON: None available. FINDINGS: No acute hemorrhage. No acute infarct. There is no evidence of intracranial enhancing mass or intracranial rim- enhancing collection on CT. No significant mass effect or brain herniation. The ventricular system and sulci/fissures are within normal limits of size and configuration for the patient's stated age. No extra-axial fluid collection. The basal cisterns are patent. The mastoid air cells are clear. The paranasal sinuses are predominantly clear. Right nasal septal deviation and nasal spur. The calvarium appears intact. CT/Brain/Head W/WO Contrast IMPRESSION: No CT evidence of acute intracranial hemorrhage, infarct, or significant mass e ffect. No abnormal intracranial enhancement. Reading Location: [facility]
== END | disposition home or self-care (01) ==
LOC: CT 15:06
PROVIDERS: PCP Family Medicine; Referring Provider Family Medicine; Visit Provider Family Medicine
DX: R51.9 Headache, unspecified (principal)
CPT/HCPCS: 70470; Q9967